=== PATIENT | male | born 1980 | race Caucasian/White ===

== ENCOUNTER 2017-06-23 14:36 | Inpatient (IN) ==
[2017-06-23] MEDS ORDERED: 0.9 % Sodium Chloride 1,000 ML IVC ONE ×2 (14:48→15:58)
[2017-06-23] MEDS ORDERED: Ondansetron 4 MG/2 ML VIAL IVP ONE ×2 (14:48→18:22)
[2017-06-23] MEDS ORDERED: *HR* FentaNYL (PF) 100 MCG/2 ML VIAL IVP ONE (14:48)
--- NOTE | 2017-06-23 14:52 | Emergency Department Note ---
Disposition Clinical Impression: Emphysematous pyelonephritis, Hyperglycemia, Ketonuria, Yeast UTI Hematuria Qualifiers: Hematuria type: unspecified type Qualified Code(s): R31.9 - Hematuria, unspecified Disposition: Admitted As Inpatient Condition: Good Nausea/Vomiting/Diarrhea HPI - General Chief complaint: ED Nausea/Vomiting/Diarrhea Stated complaint: N/V Time Seen by Provider: 06/23/17 14:50 Source: patient, EMS Mode of arrival: EMS Limitations: no limitations Nursing Notes Reviewed: Yes Vital Signs Reviewed: Yes - History of Present Illness HPI Narrative: 36-year-old male history of type 1 diabetes currently managed on an insulin pump , history of ureteral stones causing pyelonephritis who presents to the ER with a chief complaint of nausea vomiting and abdominal pain. Patient reports he started throwing up on Wednesday. He has had roughly 10 episodes of vomiting per day since. He states that his vomit did look dark and he thought there might be blood in it. He is not on any antiplatelet or anticoagulation medications. No history of gastric ulcers or esophageal varices that he is aware of. He reports pain. Much all over his abdomen. He denies diarrhea or blood in his stool or urine. No chest pain or shortness of breath. No fevers at home. He reports back pain and bilateral flank pain. No other complaints. Pt Subjective Complaint: nausea, vomiting, abdominal pain Onset (ago): day(s) Description of emesis: blood-streaked Number of episodes of emesis: 20 Associated Abdominal Pain: Yes If pain, Location of pain: diffuse Severity: moderate Quality: cramping Consistency: constant Improves with: nothing Worsens with: nonthing Context: other Associated symptoms: Reports: nausea/vomiting. Denies: chest pain, fever/chills , dysuria, shortness of breath - Related Data Home Medications Medication Instructions Recorded Confirmed Subcutaneous Insulin Pump [T:Slim] 1 each MC AD 06/23/17 06/23/17 Allergies Allergy/AdvReac Type Severity Reaction Status Date / Time No Known Allergies Allergy Verified 05/17/16 10:29 All systems ED: reviewed and negative except as stated. Constitutional: Denies: fever Cardiovascular: Denies: chest pain Respiratory: Denies: dyspnea Gastrointestinal: Reports: abdominal pain, nausea, vomiting, hematemesis. Denies: diarrhea Genitourinary: Denies: dysuria, hematuria Musculoskeletal: Reports: back pain Past Medical History - Past Medical History Attestation: Yes The following information was validated with the patient. Source: patient Medical history: Reports: arthritis, diabetes, GERD, hepatitis, kidney stones Surgical history: Reports: no surgical history Psychiatric history: Reports: anxiety, depression, other - Social History Smoking Status: Current every day smoker Smokeless Tobacco Status: No Alcohol use: Reports: occasionally Drug use: Reports: marijuana, IV Drug Use Physical Exam - General Limitations: no limitations General appearance: alert, anxious - Head Head exam: atraumatic, normocephalic, normal inspection - Eye Eye exam: Present: normal appearance, EOMI - ENT ENT exam: normal exam - Neck Neck exam: Present: normal inspection, full ROM - Chest Chest inspection: Present: normal inspection, symmetric chest wall rise - Respiratory Respiratory exam: Present: normal lung sounds bilaterally - Cardiovascular Cardiovascular exam: Present: normal rhythm, tachycardia, normal heart sounds - Abdominal Exam Abdominal exam: Present: soft, tenderness (Patient has mild diffuse tenderness to palpation of his abdomen. He has no guarding, rigidity or distention.) - Extremities Exam Extremities exam: Present: normal inspection, full ROM - Expanded Upper Extremity Exam Shoulder exam: Present: normal inspection, full ROM Arm exam: Present: normal inspection, full ROM Elbow exam: Present: normal inspection, full ROM Forearm/Wrist exam: Present: normal inspection, full ROM Hand exam: Present: normal inspection, full ROM Vascular exam: Normal: radial pulse - Expanded Lower Extremity Exam Hip/Pelvis exam: Present: normal inspection, full ROM Upper leg exam: Present: normal inspection, full ROM Knee exam: Present: normal inspection, full ROM Lower leg exam: Present: normal inspection, full ROM Ankle exam: Present: normal inspection, full ROM Foot/toe exam: Present: normal inspection, full ROM Neurovascular/Tendon exam: Absent: motor deficit, sensory deficit - Neurological Exam Neurological exam: Present: alert, other (GCS 15. Nonfocal neurologic exam.) - Psychiatric Psychiatric exam: Present: normal affect, normal mood - Skin Skin exam: Present: warm, dry, intact, normal color Course Course Narrative: Patient seen and examined. He is slightly tachycardic here. Complaining of "pain all over". He did have an episode of emesis while here which appeared nonbloody. We will obtain labs including CBC, CMP, lipase as well as a CT scan of the abdomen and pelvis for evaluation of his abdominal pain, prior renal stones and hematemesis. Patient given IV fluids antiemetics and analgesics. - Reevaluation(s) Reevaluation #1: I discussed the recommendations of infectious disease and urology with the patient as well as imaging and labs. He is in agreement with staying in the hospital. - Consultations Consultation #1: Case discussed with on-call urologist Dr. Lin. I discussed because of his CT findings showing air in the collecting system. Given these findings we will treat for emphysematous pyelonephritis. He recommends infectious disease consult for antibiotic management. He will see the patient in consultation tomorrow. Consultation #2: I spoke with the on-call infectious disease provider. Discussed the patient's history labs and imaging findings. They recommend to start Zosyn and to hold on treating with an antifungal at this time. They will see the patient consultation. Vital Signs Temperature 98.2 F 06/23/17 14:39 Pulse Rate 109 06/23/17 14:39 Respiratory Rate 16 06/23/17 14:39 Blood Pressure 136/102 06/23/17 14:39 O2 Sat by Pulse Oximetry 99 06/23/17 14:39 Temperature 98.2 F 06/23/17 14:39 Pulse Rate 93 06/23/17 16:40 Respiratory Rate 18 06/23/17 16:40 Blood Pressure 133/96 06/23/17 16:40 O2 Sat by Pulse Oximetry 99 06/23/17 16:40 Oxygen Delivery Oxygen Delivery Room Air Nausea/Vomiting/Diarrhea - [facility] Narrative Medical decision making narrative: 36-year-old male presents to the ER due to vomiting for 2 days as well as abdominal pain. History of type 1 diabetes with DKA in the past. Here he is alert and nontoxic in appearance and afebrile. CT scan demonstrates mild pyelonephritis of the left kidney with concern for gas-forming organism with air in the collecting system. Has a slight white count of 13 with a bump in his creatinine to 1.37. There is no anion gap on his metabolic panel. His urinalysis does not demonstrate bacteriuria. He does however have yeast which appears to be chronic for him. He was given 2 L of normal saline here. Urology and infectious disease were consulted in the emergency department for emphysematous pyelonephritis. Zosyn was recommended to start for antibiotic regimen and admitted to the hospitalist service for further management. - Lab Data Lab results reviewed: Yes I reviewed the patient's lab results. Result diagrams: 06/23/17 15:24 06/23/17 15:24 Lab Results 06/23/17 06/23/17 06/23/17 Range/Units 15:24 15:24 15:30 WBC 13.3 H (4.3-11.1) K/mcL RBC 4.54 (4.19-5.50) M/mcL Hgb 12.8 L (12.9-16.9) g/dL Hct 37.4 L (37.5-50.1) % MCV 82.4 L (83.0-100.0) fL MCH 28.2 (28.0-33.3) pg MCHC 34.2 (31.6-35.5) g/dL RDW 12.8 (11.5-14.5) % Plt Count 255 (140-400) K/mcL MPV 11.0 (9.4-12.4) fL Immature Gran % 0.2 (0-4) % Seg Neutrophils % 84.9 % Lymphocytes % 9.0 % Monocytes % 5.7 % Eosinophils % 0.0 % Basophils % 0.2 % Neutrophils # 11.3 H (1.6-8.9) K/mcL Lymphocytes # 1.2 (0.6-4.6) K/mcL Monocytes # 0.8 (0.0-1.3) K/mcL Eosinophils # 0.0 (0.0-0.6) K/mcL Basophils # 0.0 (0.0-0.2) K/mcL Sodium 132 L (136-145) mEq/L Potassium 3.3 L (3.5-4.5) mEq/L Chloride 88 L (98-109) mEq/L Carbon Dioxide 29 (19-29) mEq/L BUN 19 (8-26) mg/dL Creatinine 1.37 H (0.72-1.25) mg/dL Est GFR ( Amer) > 60 (> 60) Est GFR (Non-Af Amer) 59 L (> 60) BUN/Creatinine Ratio 14 (6-26) Glucose 295 H (70-99) mg/dL Calculated Osmolality 287 (280-300) Calcium 9.3 (8.6-10.8) mg/dL Total Bilirubin 0.5 (0.2-1.2) mg/dL AST 18 (5-34) Units/L ALT 16 (0-55) Units/L Alkaline Phosphatase 95 (38-126) Units/L Serum Total Protein 7.2 (6.0-8.3) g/dL Albumin 3.5 (3.5-5.0) g/dL Globulin 3.7 H (2.4-3.5) g/dL Albumin/Globulin Ratio 0.9 L (1.1-2.2) Lipase < 10 (8-78) Units/L Beta-Hydroxybutyric Acd > 2.00 H (0.02-0.27) mmol/L Urine Color Yellow (Yellow) Urine Clarity Slightly Hazy (Clear) Urine pH 5.5 (5.0-8.0) pH Units Ur Specific Tilly > 1.030 H (1.010-1.025) Urine Protein 30 H (Neg-Trace) mg/dL Urine Glucose (UA) >=1000 H (Normal) mg/dL Urine Ketones 40 H (Negative) mg/dL Urine Blood Moderate H (Negative) Urine Nitrite Negative (Negative) Urine Bilirubin Negative (Negative) Urine Urobilinogen Normal (Normal) mg/dL Ur Leukocyte Esterase Negative (Negative) Urine Microscopic RBC 5-15 H (0-3) per hpf Urine Microscopic WBC 15-30 H (0-3) per hpf Ur Squamous Epith Cells Few (None-Few) per lpf Urine Bacteria None Seen (None-Few) per hpf Hyaline Casts None Seen (None-Few) per lpf Urine Yeast Moderate H (None Seen) per hpf Ur Culture Indicated? YES A (NO) - Radiology Data Radiology results reviewed: Yes I reviewed the patient's radiology results. Abdomen/Pelvis CT 06/23/17 14:48 IMPRESSION: Mild perinephric stranding is seen involving the left kidney. There is air in the collecting system along with renal calculi. There is mild hydronephrosis. Findings concerning for acute pyelonephritis. The air is concerning for acute gas-forming organism. D/ / Nicanor Price MD / Nicanor Price MD Interpreting Provider: Nicanor Price MD [facility] - [facility] Situation: Demographics, MOA Background: Presenting Complaint, Relevant PMH, Meds, & Allergies Assessment: Vital Signs, Course and respsone to treatment, Exam Concerns, Patient/Family Expectation, Pertinant Lab Results, Outstanding Labs Recommendation: Barrier(s) to disposition, Recommendation based on pending studies, treatments, or consults [place] Report Given to: Dr. Donald Shane Repor Time: 17:16 Attestation Statement - Attestation Attestation: I examined this patient and my medical decision-making was reviewed with the Resident Physician. I agree with the documented findings, disposition and treatment plan as described except to the extent set forth below. There is evidence of possible gas-forming organism within the collecting ducts. Plan to consult urology and admitted for further evaluation of acute kidney injury and pyelonephritis.
[2017-06-23 15:41] LABS: Bilirubin,Urine Negative (Negative); Blood,Urine Moderate (Negative); Color,Urine Yellow (Yellow); Glucose,Urine (UA) >=1000 mg/dL (Normal); Ketones,Urine 40 mg/dL (Negative); Leukocyte Esterase,Urine Negative (Negative); Nitrite,Urine Negative (Negative); PH,Urine 5.5 pH Units (5.0-8.0); Protein,Urine 30 mg/dL (Neg-Trace); Specific Gravity,Urine > 1.030 (1.010-1.025); Urobilinogen,Urine Normal (Normal)
[2017-06-23 15:44] LABS: Bacteria,Urine None Seen per hpf (None-Few); Hyaline Casts,Urine None Seen per lpf (None-Few); WBC,Urine 15-30 per hpf (0-3)
[2017-06-23 15:45] LABS: Clarity,Urine Slightly Hazy (Clear)
[2017-06-23 15:47] LABS: Basophils % 0.2 %; Hematocrit 37.4 % (37.5-50.1); Hemoglobin 12.8 g/dL (12.9-16.9); Immature Granulocytes % 0.2 % (0-4); Lymphocytes # 1.2 K/mcL (0.6-4.6); Mean Corpuscular HGB Conc 34.2 g/dL (31.6-35.5); Mean Corpuscular Hemoglobin 28.2 pg (28.0-33.3); Mean Corpuscular Volume 82.4 fL (83.0-100.0); Monocytes # 0.8 K/mcL (0.0-1.3); Monocytes % 5.7 %; Neutrophils # 11.3 K/mcL (1.6-8.9); Platelet Count 255 K/mcL (140-400); Red Blood Count 4.54 M/mcL (4.19-5.50); Red Cell Distribution Width 12.8 % (11.5-14.5); Segmented Neutrophils % 84.9 %
[2017-06-23 15:53] LABS: Yeast,Urine Moderate per hpf (None Seen)
[2017-06-23 15:55] LABS: Squamous Epithelial Cell,Urine Few per lpf (None-Few)
[2017-06-23 16:06] LABS: Alanine Aminotransferase 16 Units/L (0-55); Albumin 3.5 g/dL (3.5-5.0); Albumin/Globulin Ratio 0.9 (1.1-2.2); Alkaline Phosphatase 95 Units/L (38-126); Aspartate Amino Transferase 18 Units/L (5-34); BUN/Creatinine Ratio 14 (6-26); Bilirubin,Total 0.5 mg/dL (0.2-1.2); Blood Urea Nitrogen 19 mg/dL (8-26); Calcium 9.3 mg/dL (8.6-10.8); Carbon Dioxide 29 mEq/L (19-29); Chloride 88 mEq/L (98-109); Globulin 3.7 g/dL (2.4-3.5); Glucose 295 mg/dL (70-99); Osmolality,Calculated 287 (280-300); Potassium 3.3 mEq/L (3.5-4.5); Sodium 132 mEq/L (136-145); Total Protein 7.2 g/dL (6.0-8.3); eGFR For African Americans > 60 (> 60); eGFR For Non-African Americans 59 (> 60)
[2017-06-23 16:07] LABS: Lipase < 10 Units/L (8-78)
[2017-06-23 16:25] LABS: Beta-Hydroxybutyric Acid > 2.00 mmol/L (0.02-0.27)
[2017-06-23] MEDS ORDERED: Piperacillin/Tazobactam 3.375 GM in D5% in Water (Mini-Bag+) 100 ML IVPB ONE (16:51)
[2017-06-23] MEDS ORDERED: *HR* HYDROmorphone (PF) 1 MG/ML SYRINGE IVP ONE (18:22)
[2017-06-23] MEDS ORDERED: Naloxone 0.4 MG/ML INJ IVP PRN (19:27)
[2017-06-23] MEDS ORDERED: Acetaminophen 325 MG TABLET PO PRN (19:27)
[2017-06-23] MEDS ORDERED: *HR* Dextrose 50 % in Water (Syg) 50 ML SYRINGE IVP PRN (19:52)
[2017-06-23] MEDS ORDERED: D5% in Water 1,000 ML IVC PRN (19:52)
[2017-06-23] MEDS ORDERED: Dextrose Gel 15 GM PO PRN ×2 (19:52)
--- NOTE | 2017-06-23 20:06 | Internal Med History&Physical ---
<Constantino Murray J - Last Filed: 06/23/17 20:04> Date of Encounter: 06/23/17 Time of Encounter: 20:04 Assessment and Plan (1) Pyelonephritis Current visit: Yes Status: Acute Came to the ED with chief complaint of Nausea vomiting and abdominal pain with bilateral flank pain. CAT scan of abdomen and pelvis revealed air in collecting system with concern for emphysematous pyelonephritis. Urology consulted and will see in the morning Blood cultures drawn in the emergency department Infectious disease consult and recommend Zosyn for treatment at this time Continue Zosyn as recommended de-escalate antibody therapy at the discretion of infectious disease. CBC, CMP with magnesium in the morning Monitor urine output (2) Intractable nausea and vomiting Current visit: Yes Status: Acute Three-day history of intractable nausea and vomiting. Having approximately 10 episodes/day of emesis and reports some coffee-ground -like consistency occasionally, and reports some dark maroon blood as well. Does not have a history of peptic ulcer disease or cirrhosis. CBC in the morning, CMP witn Mg in the morning, Rehydrate with IV fluids 0.9% normal saline at 125 mL per hour Zofran every 6 hours IV push for nausea vomiting Start PPI Qualifiers: Vomiting type: cyclical vomiting Qualified Code(s): G43.A1 - Cyclical vomiting, intractable (3) Diabetes Current visit: Yes Status: Chronic Patient's chronic type I diabetic who is to be on insulin pump. Has had a three -day history of nausea vomiting and diarrhea 10 episodes per day of vomiting. Blood glucose per metabolic panel 295. DC insulin pump Start sliding scale insulin coverage at medium coverage with before meals and at bedtime Accu-Cheks Hemoglobin A1c in the morning Qualifiers: Diabetes mellitus type: type 1 Diabetes mellitus complication status: with hyperglycemia Qualified Code(s): E10.65 - Type 1 diabetes mellitus with hyperglycemia (4) CORIE (acute kidney injury) Current visit: Yes Status: Acute Creatinine of 1.37, likely result of dehydration due to 3 days of vomiting with approximately 10 episodes per day. IV fluids 0.9% normal saline at 125 mL per hour Recheck metabolic panel in the morning Orders to monitor I&O (5) Dehydration, mild Current visit: Yes Status: Acute Patient reports nausea and vomiting and diarrhea 3 days with approximately 10 episodes of vomiting per day. Metabolic panel morning Rehydrate with normal saline at 125 mL per hour (6) Hypokalemia Current visit: Yes Status: Acute Hypokalemia per metabolic panel with potassium of 3.3. Likely due to nausea and vomiting. Replace potassium with 40 MEQ K rider viaPeripheral IV over 4 hours CMP with mg in the morning (7) DVT prophylaxis Current visit: Yes Status: Acute Due to immobility and hospital stay patient is a risk for DVT. Start Lovenox 40 mg subcutaneous daily Internal Medicine - H&P: HPI Chief complaint: N/V/D and abdominal pain Admitted From: Home Plans for Post Hospital Care: Home History of present illness: Mr. Ortega is a 36 year old male with a past medical history of type 1 diabetes and hepatitis. Presents to [facility] today with nausea vomiting diarrhea flank pain and abdominal pain which started Wednesday. Reports approximately 10 episodes of vomiting per day with a minimal amount of coffee- ground emesis a few times a day. All information obtained from chart review and patient report. Patient reports that her abdominal pain nausea vomiting and diarrhea started Wednesday and is continuous as of this visit. He describes abdominal pain has sharp in the left lower right lower quadrant with radiation around to mid back. He denies irritating factors are alleviation of pain. Denies fever, night sweats, dysuria, hematuria, chills, hematochezia. Metabolic panel results a creatinine of 1.37 with potential AK I, potassium 3.3 , sodium 132. CBC, elevated white count of 13.3. CT of the abdomen revealed air in the collecting system with concern for emphysematous pyelonephritis. He is being admitted to [facility] for further workup and evaluation Past Med Surg Social Fam HX - Past Medical History Medical history: arthritis, diabetes, hepatitis, kidney stones Psychiatric history: anxiety, depression, other - Past Surgical History Surgical History: no surgical history - Social History Smoking Status: Current every day smoker Packs per day: 0.5 Smokeless Tobacco Status: No Alcohol use: occasionally Drug use: marijuana, IV Drug Use - Family History Grandmother Adopted: No Family Member Ethnicity: Non- Living Status: Hx Family Respiratory Disorders: Yes (copd) Hx Family Endocrine Disorder: Yes (diabetes) Internal Medicine - H&P: Meds Subcutaneous Insulin Pump [T:Slim] 1 each AD 06/23/17 [History] 3 Allergy/AdvReac Type Severity Reaction Status Date / Time No Known Allergies Allergy Verified 05/17/16 10:29 All Systems PM: A 10-system review of systems was performed and is negative for pertinent findings except as documented above in the HPI. - Constitutional Constitutional: anorexia, fatigue, lethargy, malaise, no chills, no excessive sweating, no fever(s), no night sweats - EENT Eyes: no change in vision, no discharge, no pain, no photophobia Ears: no ear discharge, no ear pain, no tinnitus Nose, mouth and throat: no dysphagia, no nasal discharge, no neck pain, no sore throat - Cardiovascular Cardiovascular ROS IM: no chest pain, no diaphoresis, no dyspnea, no lightheadedness, no palpitations, no syncope - Respiratory Respiratory: no cough, no dyspnea, no wheezing, no excessive phlegm production - Gastrointestinal Gastrointestinal: diarrhea (Reports only a minimal amount last episode this morning), nausea, vomiting (Reports approximately 10 episodes of vomiting per day for the last 3 days. ), no abdominal pain, no hematemesis, no hematochezia , no melena - Genitourinary Genitourinary ROS male: flank pain, no difficulty urinating, no dysuria, no hematuria, no urinary frequency, no urinary hesitancy, no urinary incontinence - Musculoskeletal Musculoskeletal ROS IM: no numbness, no tingling - Integumentary Integumentary IM: no rash, no unusual bruising - Neurological Neurological ROS: no confusion, no convulsions, no focal weakness, no numbness, no tingling, no tremor(s) - Hematologic/Lymphatic Hematologic/Lymphatic: no easy bruising - Constitutional Vitals: Temp Pulse Resp BP Pulse Ox 98.5 F 83 16 156/96 98 06/23/17 19:24 06/23/17 19:24 06/23/17 19:24 06/23/17 19:24 06/23/17 19:24 General appearance: Present: cooperative, mild distress, A&O X 3, answers questions appropriately - Head Head exam: Present: atraumatic, normocephalic - Eye Eye exam: Present: PERRL, conjuntiva pink, sclera anicteric Pupils: Present: PERRL - Neck Neck exam general surgery: Present: supple, trachea midline. Absent: lymphadenopathy - Respiratory Respiratory exam: Present: CTAB. Absent: accessory muscle use, rales, rhonchi, wheezes - Cardiovascular Cardiovascular exam: Present: RRR, +S1, +S2. Absent: diastolic murmur, gallop, rubs, systolic murmur - GI/Abdominal GI/Abdominal exam: Present: normal bowel sounds, soft, tenderness (Tenderness noted to right and left lower quadrant, no rebound noted). Absent: distended, firm, guarding, hepatomegaly - Extremities Exam Extremities exam: Present: warm, radial pulses palpable and symmetrical. Absent : calf tenderness, cyanotic, pedal edema - Back Exam Back exam: Present: CVA tenderness (L), CVA tenderness (R) (CVA tenderness noted bilaterally) - Neurological Exam Neurological exam: Present: CN II-XII intact, oriented X3, no focal deficits. Absent: pronater drift, facial droop, speech deficit - Skin Skin exam: Present: dry, intact Internal Med - H&P Results - Labs CBC & Chem 7: 06/23/17 15:24 06/23/17 15:24 - Diagnostic Studies CT scan - abdomen Additional comments: CT of the abdomen revealed air in the collecting system with concern for emphysematous pyelonephritis. <Humberto Polk Andrea - Last Filed: 06/23/17 23:31> Date of Encounter: 06/23/17 Internal Medicine - H&P: HPI History of present illness: Mr. Ortega is a 36 year old male All Systems PM: A 10-system review of systems was performed and is negative for pertinent findings except as documented above in the HPI. - Constitutional Vitals: Temp Pulse Resp BP Pulse Ox 98.1 F 83 16 115/74 98 06/23/17 23:24 06/23/17 23:24 06/23/17 23:24 06/23/17 23:24 06/23/17 23:24 Internal Med - H&P Results - Labs CBC & Chem 7: 06/23/17 15:24 06/23/17 15:24 - Attending Attestation I have personally performed a face to face evaluation on this patient. I have reviewed and agree with the care plan. History and Exam by me shows: 36 yo presenting with b/l front and back pain. Noted chills. Also emesis, reported some dark maroon blood towards the end. CT A/P found L.pyelonephritis ROS 14 point review of systems reviewed as best as possible given presentation. Pertinent positive or negative as per HPI or otherwise reviewed as negative General - AAO x 3 Psych - Appropriate affect/speech. No agitation Eyes - BRO. Eye lids intact. No scleral icterus Heart - Sinus. RRR. S1 and S2 present. No added HS/murmurs appreciated. No elevated JVD appreciated. No calf swellings/erythema Lung - Adequate air entry b/l, No crackes/wheezes appreciated GI - Soft, non-tender. No hepatosplenomegaly/ascites. BS+ - bilateral back and front flank pain A/P Complicated UTI Pyelonephritis - IV antibiotics, send Cx, IVF, IV morphine pain med DMII on insulin pump - monitor sugar. Now off pump. If high, may have to place back on pump and adjust accordingly Dark emesis - denies cirrhosis or PUD. Monitor inpatient. PPI. Check H/H D/w MARYBEL plan of care
[2017-06-23 20:47] LABS: Hemoglobin A1C 12.7 %
[2017-06-23] MEDS: 0.9 % Sodium Chloride 1,000 ML IVC SCH (21:49)
[2017-06-23] MEDS: *HR* Morphine 2 MG/ML SYRINGE IVP PRN (22:16)
[2017-06-23] MEDS: Insulin LISPRO 300 UNITS/3 ML VIAL SQ SCH (22:17)
[2017-06-23] MEDS: Pantoprazole 40 MG VIAL IVP SCH (22:17)
[2017-06-24] MEDS ORDERED: Ondansetron 4 MG/2 ML VIAL IVP SCH
[2017-06-24] MEDS: Ondansetron 4 MG/2 ML VIAL IVP PRN ×4 (01:35→23:33)
[2017-06-24] MEDS: *HR* Morphine 2 MG/ML SYRINGE IVP PRN ×5 (03:25→23:34)
[2017-06-24] MEDS: Piperacillin/Tazobactam 3.375 GM in D5% in Water (Mini-Bag+) 100 ML IVPB SCH ×3 (03:25→17:50)
[2017-06-24 04:53] LABS: Basophils % 0.1 %; Eosinophils % 0.3 %; Hematocrit 36.4 % (37.5-50.1); Hemoglobin 12.4 g/dL (12.9-16.9); Immature Granulocytes % 0.7 % (0-4); Immature Platelets 6.2 % (1.1-6.1); Lymphocytes # 1.5 K/mcL (0.6-4.6); Lymphocytes % 9.7 %; Mean Corpuscular HGB Conc 34.1 g/dL (31.6-35.5); Mean Corpuscular Hemoglobin 28.6 pg (28.0-33.3); Mean Corpuscular Volume 84.1 fL (83.0-100.0); Mean Platelet Volume 11.4 fL (9.4-12.4); Monocytes # 1.4 K/mcL (0.0-1.3); Platelet Count 214 K/mcL (140-400); Red Blood Count 4.33 M/mcL (4.19-5.50); Segmented Neutrophils % 80.2 %
[2017-06-24 05:00] LABS: Eosinophils # 0.1 K/mcL (0.0-0.6)
[2017-06-24 05:01] LABS: Alanine Aminotransferase 14 Units/L (0-55); Albumin 3.4 g/dL (3.5-5.0); Alkaline Phosphatase 92 Units/L (38-126); Aspartate Amino Transferase 20 Units/L (5-34); BUN/Creatinine Ratio 14 (6-26); Bilirubin,Total 0.4 mg/dL (0.2-1.2); Blood Urea Nitrogen 18 mg/dL (8-26); Calcium 8.5 mg/dL (8.6-10.8); Carbon Dioxide 23 mEq/L (19-29); Chloride 95 mEq/L (98-109); Globulin 3.5 g/dL (2.4-3.5); Glucose 181 mg/dL (70-99); Magnesium 1.5 mg/dL (1.6-2.6); Osmolality,Calculated 286 (280-300); Potassium 3.5 mEq/L (3.5-4.5); Sodium 135 mEq/L (136-145); Total Protein 6.9 g/dL (6.0-8.3); eGFR For African Americans > 60 (> 60); eGFR For Non-African Americans > 60 (> 60)
[2017-06-24] MEDS: 0.9 % Sodium Chloride 1,000 ML IVC SCH ×3 (05:39→22:10)
[2017-06-24] MEDS: *HR* Enoxaparin 40 MG/0.4 ML SYRINGE SQ SCH (05:40)
[2017-06-24 05:51] LABS: Platelet Estimate Normal (Normal)
--- NOTE | 2017-06-24 07:48 | Urology - Consult Note ---
Date of Encounter: 06/24/17 Time of Encounter: 07:46 - Assessment and Plan (1) Emphysematous pyelonephritis Current Visit: Yes Status: Acute Assessment and plan: 36 year old man with a history of left emphysematous pyelonephritis. He has stones within the left kidney, but no evidence of obstruction. He has been admitted and is on Zosyn. He is having some nausea today, but no fevers. I discussed placing a left ureteral stent today vs further observation with continued IV antibiotic. Again, he hasn't had any fevers, but his WBC has risen slightly. After our discussion he wishes to observe for some more time prior to stent placement. If his clinical condition worsens or if his WBC increases again tomorrow, I will proceed with the cystoscopy and left ureteral stent placement. He understands the risk of worsening of his infection without treatment. I will closely follow along. I will keep him NPO past midnight. Urology CN:HPI Consult date: 06/24/17 Reason for consult Urology: Other (nausea, emphysematous pyelonephritis) Requesting physician: Jack Klein History of present illness: 36-year-old man well-known to the urology service presents with nausea and vomiting and back pain. He has a known stone history. He previously underwent a right ureteroscopic stone extraction on July 01, 2016. He has known left renal stones. The nausea and vomiting has been progressing over the last 2 days. It became severe enough yesterday that he came to the emergency room. His blood glucose was elevated. He had a CT scan done which showed gas within the left renal collecting system as well as left renal stones. There are no stones seen on the right side. He has been admitted. In addition the CT showed no evidence of obstructing left ureteral stone. There is evidence of mild left hydronephrosis. Past Med Surg Social Fam HX - Past Medical History Medical history: arthritis, diabetes, hepatitis, kidney stones Psychiatric history: anxiety, depression, other - Past Surgical History Surgical History: no surgical history - Social History Smoking Status: Current every day smoker Packs per day: 0.5 Smokeless Tobacco Status: No Alcohol use: occasionally Drug use: marijuana, IV Drug Use - Family History Grandmother Adopted: No Family Member Ethnicity: Non- Living Status: Hx Family Respiratory Disorders: Yes (copd) Hx Family Endocrine Disorder: Yes (diabetes) Medications and Allergies Subcutaneous Insulin Pump [T:Slim] 1 each MC AD 06/23/17 [History] 3 Allergy/AdvReac Type Severity Reaction Status Date / Time No Known Allergies Allergy Verified 05/17/16 10:29 Review of Systems - Constitutional no chills, no fever(s) - EENT Nose, mouth and throat: no dizziness - Cardiovascular no chest pain - Respiratory no dyspnea - Gastrointestinal nausea, vomiting - Genitourinary flank pain, no hematuria - Musculoskeletal no back pain - Integumentary no erythema, no rash - Neurological no weakness - Psychiatric no suicidal ideation - Hematologic/Lymphatic no easy bleeding - Allergic/Immunologic no wheezing Exam Initial Vital Signs Temp Pulse Resp BP Pulse Ox 98.2 F 109 16 136/102 99 06/23/17 14:39 06/23/17 14:39 06/23/17 14:39 06/23/17 14:39 06/23/17 14:39 - General physical appearance Present: well developed, well nourished, no distress - Eyes Absent: icteric - ENT Present: normal mucosa - Neck Present: trachea midline - Respiratory Present: normal respiratory effort - Cardiovascular Cardiovascular exam IM: RRR - Abdomen Abdomen: Present: soft Urology Results - Labs 06/24/17 04:13 06/24/17 04:13 Abnormal lab results WBC 15.0 K/mcL (4.3-11.1) H 06/24/17 04:13 Hgb 12.4 g/dL (12.9-16.9) L 06/24/17 04:13 Hct 36.4 % (37.5-50.1) L 06/24/17 04:13 Neutrophils # 12.0 K/mcL (1.6-8.9) H 06/24/17 04:13 Monocytes # 1.4 K/mcL (0.0-1.3) H 06/24/17 04:13 Immature Plt Fraction 6.2 % (1.1-6.1) H 06/24/17 04:13 Sodium 135 mEq/L (136-145) L 06/24/17 04:13 Chloride 95 mEq/L (98-109) L 06/24/17 04:13 Creatinine 1.32 mg/dL (0.72-1.25) H 06/24/17 04:13 Glucose 181 mg/dL (70-99) H 06/24/17 04:13 POC Glucose 206 (58-89) H 06/24/17 07:14 Hemoglobin A1c 12.7 % (-5.6) H 06/23/17 15:24 Calcium 8.5 mg/dL (8.6-10.8) L 06/24/17 04:13 Magnesium 1.5 mg/dL (1.6-2.6) L 06/24/17 04:13 Albumin 3.4 g/dL (3.5-5.0) L 06/24/17 04:13 Albumin/Globulin Ratio 1.0 (1.1-2.2) L 06/24/17 04:13 Beta-Hydroxybutyric Acd > 2.00 mmol/L (0.02-0.27) H 06/23/17 15:24 Ur Specific [place] > 1.030 (1.010-1.025) H 06/23/17 15:30 Urine Protein 30 mg/dL (Neg-Trace) H 06/23/17 15:30 Urine Glucose (UA) >=1000 mg/dL (Normal) H 06/23/17 15:30 Urine Ketones 40 mg/dL (Negative) H 06/23/17 15:30 Urine Blood Moderate (Negative) H 06/23/17 15:30 Urine Microscopic RBC 5-15 per hpf (0-3) H 06/23/17 15:30 Urine Microscopic WBC 15-30 per hpf (0-3) H 06/23/17 15:30 Urine Yeast Moderate per hpf (None Seen) H 06/23/17 15:30 Ur Culture Indicated? YES (NO) A 06/23/17 15:30 Diabetes panel 06/24/17 Range/Units 04:13 Sodium 135 L (136-145) mEq/L Potassium 3.5 (3.5-4.5) mEq/L Chloride 95 L (98-109) mEq/L Carbon Dioxide 23 (19-29) mEq/L BUN 18 (8-26) mg/dL Creatinine 1.32 H (0.72-1.25) mg/dL Glucose 181 H (70-99) mg/dL Calcium 8.5 L (8.6-10.8) mg/dL AST 20 (5-34) Units/L ALT 14 (0-55) Units/L Alkaline Phosphatase 92 (38-126) Units/L Albumin 3.4 L (3.5-5.0) g/dL Calcium panel 06/24/17 Range/Units 04:13 Calcium 8.5 L (8.6-10.8) mg/dL Albumin 3.4 L (3.5-5.0) g/dL Pituitary panel 06/24/17 Range/Units 04:13 Sodium 135 L (136-145) mEq/L Potassium 3.5 (3.5-4.5) mEq/L Chloride 95 L (98-109) mEq/L Carbon Dioxide 23 (19-29) mEq/L BUN 18 (8-26) mg/dL Creatinine 1.32 H (0.72-1.25) mg/dL Glucose 181 H (70-99) mg/dL Calcium 8.5 L (8.6-10.8) mg/dL Adrenal panel 06/24/17 Range/Units 04:13 Sodium 135 L (136-145) mEq/L Potassium 3.5 (3.5-4.5) mEq/L Chloride 95 L (98-109) mEq/L Carbon Dioxide 23 (19-29) mEq/L BUN 18 (8-26) mg/dL Creatinine 1.32 H (0.72-1.25) mg/dL Glucose 181 H (70-99) mg/dL Calcium 8.5 L (8.6-10.8) mg/dL Total Bilirubin 0.4 (0.2-1.2) mg/dL AST 20 (5-34) Units/L ALT 14 (0-55) Units/L Alkaline Phosphatase 92 (38-126) Units/L Albumin 3.4 L (3.5-5.0) g/dL All other labs normal. - Imaging CT scan - abdomen: report reviewed, image reviewed CT scan - pelvis: report reviewed, image reviewed Consult Discharge Plan - Plan Referrals: Michelle Amin, GINA [Primary Care Provider] -
[2017-06-24] MEDS: Pantoprazole 40 MG VIAL IVP SCH (08:25)
[2017-06-24] MEDS: Insulin LISPRO 300 UNITS/3 ML VIAL SQ SCH ×4 (08:25→20:06)
--- NOTE | 2017-06-24 09:23 | Infectious Disease Consult ---
Date of Encounter: 06/24/17 Time of Encounter: 09:13 Assessment and Plan (1) Sepsis Status: Resolved Assessment and plan: The patient had two SIRS criteria plus CORIE on admission. No lactic acid was checked. Add to AM labs now. Likely secondary to emphysematous pyelonephritis. Improved. Tachycardia has resolved. WBC a little worse this morning. Blood cultures drawn 06/23/17 are pending x 2 sets. Qualifiers: Sepsis type: sepsis due to unspecified organism Qualified Code(s): A41.9 - Sepsis, unspecified organism (2) Emphysematous pyelonephritis Status: Acute Assessment and plan: Causative organism unclear. Urinalysis not indicative of bacterial infection, but did show some yeast. Urine culture is pending. CT of the abdomen and pelvis done without contrast shows left perinephric stranding with air in the collecting system, concerning for gas-forming organism. Additionally, there are several left renal calculi with mild hydronephrosis. Urology consulted and following. Will discuss case with Dr. Lin. Continue Zosyn 3.375 grams IV Q8H. Duration of treatment depends on the clinical picture. Monitor renal function and dose-adjust antibiotics. (3) Candiduria Status: Acute Assessment and plan: Urinalysis shows yeast organisms. Previous urine cultures positive for Jade albicans. The patient may be undergoing urological procedure in the next 24-48 hours. Will start fluconazole 200mg IV daily in anticipation of possible stent placement. Duration of treatment depends on the clinical picture. Monitor LFTs periodically. (4) CORIE (acute kidney injury) Status: Acute Assessment and plan: CORIE in the setting of CKD. Serum creatinine 1.37 on admission. Likely secondary to hydronephrosis. Continue to trend. Dose-adjust antibiotics as needed. Avoid nephrotoxins as able. (5) Nausea and vomiting Status: Acute Assessment and plan: Likely secondary to current infectious process. Continue supportive care. Further management per the primary team. Qualifiers: Vomiting type: unspecified Vomiting Intractability: intractable Qualified Code(s): R11.2 - Nausea with vomiting, unspecified (6) Diabetes Status: Chronic Assessment and plan: Uncontrolled. HgbA1C 12.7 Uncontrolled DM likely contributing to the onset of emphysematous pyelonephritis. Recommend aggressive glucose monitoring and control to prevent re-infection. Management per the primary team. Qualifiers: Diabetes mellitus type: type 1 Diabetes mellitus complication status: with hyperglycemia Qualified Code(s): E10.65 - Type 1 diabetes mellitus with hyperglycemia (7) Hepatitis C Status: Chronic Assessment and plan: Secondary to previous IVDU. Check HIV. Qualifiers: Viral hepatitis chronicity: chronic Hepatic coma status: without hepatic coma Qualified Code(s): B18.2 - Chronic viral hepatitis C Infectious Disease HPI - Data of Consult Patient: new to practice Consult date: 06/24/17 Requesting Physician: Aleida Briggs MD Primary Care Provider: Michelle Amin CNP - Consult Narrative Reason for consult: Emphysematous Pyelonephritis History of present illness: Mr. Ortega is a 36 year old male with a past medical history of type 1 diabetes and hepatitis C. She was admitted to the hospital June 23 for emphysematous pyelonephritis. We are consulted June 24 for further evaluation and treatment recommendations regarding emphysematous pyelonephritis. Briefly, the patient's a 36-year-old male with past medical history as stated above. The patient states 2 days ago he began to experience nausea and vomiting with low back pain and suprapubic abdominal pain. He presented to the emergency department yesterday. He was noted to have tachycardia and leukocytosis and acute kidney injury. CT of the abdomen and pelvis without contrast showed mild perinephric stranding evolving the left kidney with air in the collecting system along with renal calculi. Additionally, there were as mild hydronephrosis and the air is concerning for acute gas-forming organism. Urinalysis was obtained that was positive for white blood cells, but no bacteria were seen. Culture is pending. Blood cultures were obtained 2 sets and are pending as well. The patient was started empirically on IV Zosyn. He was admitted to the hospital for further evaluation and treatment. Since admission, the patient has remained afebrile. His tachycardia has resolved. His white blood cell count is mildly worse today. Urology has been consulted and is considering stent placement, but is holding off for now. The patient remains on IV Zosyn. We've been asked to evaluate and make further recommendations. During my exam today, the patient states that he feels a little better. He reports chills at home, but denies any fevers or rigors. He reports chronic neck pain, but denies any headaches. He denies any congestion, earache, or sore throat. He reports nausea and vomiting and inability to keep food down. He reports suprapubic abdominal pain. He states he had one episode of diarrhea yesterday, but otherwise denies. He reports bilateral low back pain, worse on the right than the left. He denies any dysuria, hematuria, or urinary frequency. He denies any foul odor to his urine. He states that he only wears an insulin pump at home and his blood sugars have been relatively well controlled. He denies any chest pain or shortness of breath or cough. Denies any oral thrush or new skin lesions. CC: Aleida Briggs MD Past Med Surg Social Fam HX - Past Medical History Attestation: Yes The following information was validated with the patient. Source: patient, old records reviewed, nursing notes reviewed Medical history: arthritis, diabetes, hepatitis (Hep C - previous IVDU 3 years ago), kidney stones Psychiatric history: anxiety, depression, other - Past Surgical History Surgical History: no surgical history, other (Kidney stone removal) - Social History Smoking Status: Current every day smoker Packs per day: 0.5 Smokeless Tobacco Status: No Alcohol use: occasionally Drug use: marijuana, IV Drug Use (3 years ago) Occupational status: unemployed Current living situation: Home - Independent Activity Level: Independent ambulation Recent Out of Country Travel Within the Last 8 Weeks: No Exposure or Possible Exposure to Illness During Travel: No - Family History Grandmother Adopted: No Family Member Ethnicity: Non- Living Status: Hx Family Respiratory Disorders: Yes (copd) Hx Family Endocrine Disorder: Yes (diabetes) Infectious Disease-CN:Meds Subcutaneous Insulin Pump [T:Slim] 1 each AD 06/23/17 [History] 3 Allergy/AdvReac Type Severity Reaction Status Date / Time No Known Allergies Allergy Verified 05/17/16 10:29 All systems: reviewed and no additional remarkable complaints except as stated Exam - Constitutional Vitals: Temp Pulse Resp BP Pulse Ox 98.2 F 86 16 130/79 98 06/24/17 07:16 06/24/17 07:16 06/24/17 07:16 06/24/17 07:16 06/24/17 07:16 General appearance: average body habitus, cooperative, no acute distress - Head Head exam: Present: atraumatic, normal inspection, normocephalic - Eye Eye exam: Present: EOMI, normal appearance, PERRL Pupils: Present: normal accommodation - ENT ENT exam: Present: mucous membranes moist - Neck Neck exam: Present: normal inspection - Respiratory Respiratory exam: Present: CTAB. Absent: rales, respiratory distress, rhonchi, wheezes - Cardiovascular Cardiovascular exam: Present: RRR, +S1, +S2 - GI/Abdominal GI/Abdominal exam: Present: normal bowel sounds, soft, tenderness (generalized) . Absent: distended - Extremities Exam Extremities exam: Present: normal inspection. Absent: joint swelling, pedal edema, tenderness - Back Exam Back exam: Present: CVA tenderness (L), CVA tenderness (R), normal inspection. Absent: paraspinal tenderness, vertebral tenderness Additional comments: No crepitus noted. - Neurological Exam Neurological exam: Present: alert, oriented X3, no focal deficits - Psychiatric Psychiatric exam: Present: normal affect, normal mood - Skin Skin exam: Present: dry, intact, normal color, warm Infectious Disease CN: Results - Labs CBC & Chem 7: 06/24/17 04:13 06/24/17 04:13 Consult Discharge Plan - Plan Referrals: Michelle Amin, [employer] [Primary Care Provider] -
[2017-06-24] MEDS ORDERED: Magnesium Sulfate 2 GM in D5% in Water 100 ML IVPB ONE (09:59)
[2017-06-24] MEDS: Fluconazole 200 MG/100 ML 200 MG/100 ML BAG IVPB SCH (12:04)
--- NOTE | 2017-06-24 13:26 | Internal Med Progress Note ---
Date of Encounter: 06/24/17 Time of Encounter: 09:45 - Assessment and plan (1) Sepsis Current Visit: No Status: Resolved Assessment and plan: Pt does meet sepsis criteria with elevated WBC, source of Inf as UTI and CORIE Cont empirical abx Zosyn cont IV hydration cont monitor closely will f/u on blood and urine cx Qualifiers: Sepsis type: sepsis due to unspecified organism Qualified Code(s): A41.9 - Sepsis, unspecified organism (2) Pyelonephritis, acute Current Visit: No Status: Acute Assessment and plan: see above (3) Acute renal failure Current Visit: No Status: Acute Assessment and plan: due to sepsis and Pyelonephritis Posisble obstructive uropathy too cont close monitoring strict I & O Trend on Cr Abx renally dosed avoid nephrotoxic meds Qualifiers: Acute renal failure type: unspecified Qualified Code(s): N17.9 - Acute kidney failure, unspecified (4) Hydronephrosis Current Visit: No Status: Acute Assessment and plan: with Left renal calculi Urology on board If his WBC get worse or if his Abd pain get worse, planning on doing Cystoscope and stent in AM Qualifiers: Hydronephrosis type: unspecified Qualified Code(s): N13.30 - Unspecified hydronephrosis (5) Nephrolithiasis Current Visit: No Status: Acute (6) Type 1 diabetes mellitus Current Visit: No Status: Acute Assessment and plan: placed him on ISS here on Diabetic diet take him off his home insulin pump Qualifiers: Diabetes mellitus complication status: without complication Qualified Code( s): E10.9 - Type 1 diabetes mellitus without complications - Subjective Interval history: Mr. Ortega is a 36 year old male with a past medical history of type 1 diabetes and hepatitis. Presents to [facility] today with nausea vomiting diarrhea flank pain and abdominal pain which started Wednesday. Reports approximately 10 episodes of vomiting per day with a minimal amount of coffee- ground emesis a few times a day. All information obtained from chart review and patient report. Patient reports that her abdominal pain nausea vomiting and diarrhea started Wednesday and is continuous as of this visit. He describes abdominal pain has sharp in the left lower right lower quadrant with radiation around to mid back. He denies irritating factors are alleviation of pain. Denies fever, night sweats, dysuria, hematuria, chills, hematochezia. Metabolic panel results a creatinine of 1.37 with potential AK I, potassium 3.3 , sodium 132. CBC, elevated white count of 13.3. CT of the abdomen revealed air in the collecting system with concern for emphysematous pyelonephritis Pt was admitted here for acute emphysematous pyelonephritis. He still c/o abdominal pain, generalized weakness. Denied any CP / SOB - Constitutional Vitals: Temp Pulse Resp BP Pulse Ox 98.3 F 88 14 147/86 98 06/24/17 11:00 06/24/17 11:00 06/24/17 11:00 06/24/17 11:00 06/24/17 11:00 General appearance: Present: cooperative, A&O X 3, answers questions appropriately - Head Head exam: Present: atraumatic, normal inspection - Respiratory Respiratory exam: Present: decreased breath sounds. Absent: rales, respiratory distress, rhonchi, wheezes - Cardiovascular Cardiovascular exam: Present: RRR, +S1, +S2. Absent: systolic murmur - GI/Abdominal GI/Abdominal exam: Present: soft. Absent: rebound, rigid, tenderness - Extremities Exam Extremities exam: Absent: calf tenderness, pedal edema, tenderness - Back Exam Back exam: Present: CVA tenderness (L), CVA tenderness (R) - Neurological Exam Neurological exam: Present: alert, oriented X3 - Psychiatric Psychiatric exam: Present: normal affect, normal mood Internal Medicine: Result - Labs CBC & Chem 7: 06/24/17 04:13 06/24/17 04:13 Labs: Short CBC 06/24/17 Range/Units 04:13 WBC 15.0 H (4.3-11.1) K/mcL Hgb 12.4 L (12.9-16.9) g/dL Hct 36.4 L (37.5-50.1) % Plt Count 214 (140-400) K/mcL Neutrophils # 12.0 H (1.6-8.9) K/mcL BMP 06/24/17 04:13 Sodium 135 L Potassium 3.5 Chloride 95 L Carbon Dioxide 23 BUN 18 Creatinine 1.32 H Glucose 181 H Calcium 8.5 L Liver Function 06/24/17 Range/Units 04:13 Total Bilirubin 0.4 (0.2-1.2) mg/dL AST 20 (5-34) Units/L ALT 14 (0-55) Units/L Alkaline Phosphatase 92 (38-126) Units/L Albumin 3.4 L (3.5-5.0) g/dL Consult Discharge Plan - Plan Referrals: Michelle Amin, GINA [Primary Care Provider] -
[2017-06-24] MEDS: *HR* Promethazine 25 MG/ML VIAL IVP PRN (17:49)
--- NOTE | 2017-06-24 19:25 | Anesthesia Evaluation PreOp ---
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: Denies Any Significant HX Other Medical History: Hepatic (Hepatitis), Renal (CORIE elevated creatinine), Diabetes Type II Anesthesia History: No Prior Anesthetic Complications Alcohol Use: occasionally Drug use: marijuana, IV Drug Use (3 years ago) Medications and Allergies Subcutaneous Insulin Pump [T:Slim] 1 each MC AD 06/23/17 [History] 3 Allergy/AdvReac Type Severity Reaction Status Date / Time No Known Allergies Allergy Verified 05/17/16 10:29 - Meds/Allergy Pre-op Review Medications Reviewed: Yes Allergies Reviewed: Yes Beta Blockers on Current Med List: No Anesthesia Results - Labs 06/24/17 04:13 06/24/17 04:13 Laboratory Tests 04/11/16 06/24/17 06/24/17 21:49 04:13 04:13 Hgb 12.4 L Hct 36.4 L Plt Count 214 PT 14.0 H INR 1.3 APTT 27.5 Sodium 135 L Potassium 3.5 BUN 18 Creatinine 1.32 H Anesthesia Exam O2 Sat Weight 71.6 kg O2 Sat by Pulse Oximetry 98 O2 Sat by Pulse Oximetry 99 O2 Sat by Pulse Oximetry 97 O2 Sat by Pulse Oximetry 98 O2 Sat by Pulse Oximetry 98 O2 Sat by Pulse Oximetry 99 O2 Sat by Pulse Oximetry 98 Vital Signs Temp Pulse Resp BP Pulse Ox 98.2 F 109 16 136/102 99 06/23/17 14:39 06/23/17 14:39 06/23/17 14:39 06/23/17 14:39 06/23/17 14:39 Height: 6'0 Weight: 157 lbs NPO (# of Hours): MN Pain Scale: 0 - HEENT Pupil (Motor): Pupils equal, EOMI Mallampati: II Teeth: Edentulous Oral Opening: Greater than 3 - WEB DEVELOPER PROGRAMMER LOC: Oriented [employer] DEVELOPER PROGRAMMER Motor: Normal RUE, Normal LUE, Normal RLE, Normal LLE, Normal Face [employer] DEVELOPER PROGRAMMER Sensory: Normal: RUE, LUE, RLE, LLE, Face - Cardiac Rhythm: Regular Murmur: None JVD: No Carotid Bruit: No - Pulmonary Breath Sounds: bilateral Clear Respiratory Effort: Symmetrical Anesthesia Assess/Plan ASA Score: 2 Modified Twining Scale for Level of Consciousness: Cooperative, oriented, and tranquil Anesthetic Plan: General Monitoring Plan: Standard Monitors Recovery Plan: PACU (Discussed GA, agrees to proceed)
[2017-06-25] MEDS: *HR* Promethazine 25 MG/ML VIAL IVP PRN ×2 (02:08→08:46)
[2017-06-25] MEDS: Piperacillin/Tazobactam 3.375 GM in D5% in Water (Mini-Bag+) 100 ML IVPB SCH ×3 (03:52→18:49)
[2017-06-25] MEDS: *HR* Morphine 2 MG/ML SYRINGE IVP PRN ×4 (03:52→19:41)
[2017-06-25] MEDS: *HR* Enoxaparin 40 MG/0.4 ML SYRINGE SQ SCH (05:12)
[2017-06-25] MEDS: Ondansetron 4 MG/2 ML VIAL IVP PRN ×3 (05:56→21:31)
[2017-06-25] MEDS: 0.9 % Sodium Chloride 1,000 ML IVC SCH ×3 (05:57→22:03)
[2017-06-25 06:20] LABS: Basophils % 0.2 %; Eosinophils % 0.1 %; Hematocrit 36.2 % (37.5-50.1); Hemoglobin 12.1 g/dL (12.9-16.9); Immature Granulocytes % 0.8 % (0-4); Lymphocytes # 1.4 K/mcL (0.6-4.6); Lymphocytes % 13.8 %; Mean Corpuscular HGB Conc 33.4 g/dL (31.6-35.5); Mean Corpuscular Hemoglobin 28.1 pg (28.0-33.3); Mean Platelet Volume 10.8 fL (9.4-12.4); Monocytes # 0.8 K/mcL (0.0-1.3); Monocytes % 7.9 %; Neutrophils # 7.9 K/mcL (1.6-8.9); Platelet Count 243 K/mcL (140-400); Red Blood Count 4.31 M/mcL (4.19-5.50); Red Cell Distribution Width 12.9 % (11.5-14.5); Segmented Neutrophils % 77.2 %
[2017-06-25 06:30] LABS: BUN/Creatinine Ratio 13 (6-26); Blood Urea Nitrogen 16 mg/dL (8-26); Calcium 7.6 mg/dL (8.6-10.8); Carbon Dioxide 23 mEq/L (19-29); Chloride 97 mEq/L (98-109); Glucose 213 mg/dL (70-99); Magnesium 1.8 mg/dL (1.6-2.6); Osmolality,Calculated 286 (280-300); Potassium 3.3 mEq/L (3.5-4.5); Sodium 134 mEq/L (136-145); eGFR For African Americans > 60 (> 60); eGFR For Non-African Americans > 60 (> 60)
--- NOTE | 2017-06-25 07:21 | Urology Progress Note ---
Date of Encounter: 06/25/17 Time of Encounter: 07:19 - Assessment and Plan (1) Emphysematous pyelonephritis Current Visit: Yes Status: Acute Assessment and plan: Although WBC has improved, he is still having nausea. I think it would be reasonable to place a stent. That will aid in further drainage from the kidney and allow for ease in definitive stone treatment at a later date. He has been npo. Plan for cystoscopy and left ureteral stent placement. He is aware of the risks of the surgery including, but not limited to bleeding, infection, injury to other structures, need for further procedures, stent irritation, and the risk of anesthesia. He is willing to proceed. Progress Note Narrative: 36 year old man with emphysematous pyelonephritis. WBC improved. Still with some nausea. Objective Initial Vital Signs Temp Pulse Resp BP Pulse Ox 98.2 F 109 16 136/102 99 06/23/17 14:39 06/23/17 14:39 06/23/17 14:39 06/23/17 14:39 06/23/17 14:39 - General physical appearance Present: well developed, well nourished, no distress - Respiratory Present: normal respiratory effort - Abdomen Present: soft - Labs 06/25/17 05:38 06/25/17 05:38 Diabetes panel 06/25/17 Range/Units 05:38 Sodium 134 L (136-145) mEq/L Potassium 3.3 L (3.5-4.5) mEq/L Chloride 97 L (98-109) mEq/L Carbon Dioxide 23 (19-29) mEq/L BUN 16 (8-26) mg/dL Creatinine 1.19 (0.72-1.25) mg/dL Glucose 213 H (70-99) mg/dL Calcium 7.6 L (8.6-10.8) mg/dL Calcium panel 06/25/17 Range/Units 05:38 Calcium 7.6 L (8.6-10.8) mg/dL Pituitary panel 06/25/17 Range/Units 05:38 Sodium 134 L (136-145) mEq/L Potassium 3.3 L (3.5-4.5) mEq/L Chloride 97 L (98-109) mEq/L Carbon Dioxide 23 (19-29) mEq/L BUN 16 (8-26) mg/dL Creatinine 1.19 (0.72-1.25) mg/dL Glucose 213 H (70-99) mg/dL Calcium 7.6 L (8.6-10.8) mg/dL Adrenal panel 06/25/17 Range/Units 05:38 Sodium 134 L (136-145) mEq/L Potassium 3.3 L (3.5-4.5) mEq/L Chloride 97 L (98-109) mEq/L Carbon Dioxide 23 (19-29) mEq/L BUN 16 (8-26) mg/dL Creatinine 1.19 (0.72-1.25) mg/dL Glucose 213 H (70-99) mg/dL Calcium 7.6 L (8.6-10.8) mg/dL Consult Discharge Plan - Plan Referrals: Michelle Amin CNP [Primary Care Provider] - Camilo iLn MD [Partnered Physician] -
[2017-06-25] MEDS: Insulin LISPRO 300 UNITS/3 ML VIAL SQ SCH ×4 (08:38→20:35)
[2017-06-25] MEDS: Pantoprazole 40 MG VIAL IVP SCH (08:46)
[2017-06-25] MEDS: Fluconazole 200 MG/100 ML 200 MG/100 ML BAG IVPB SCH (08:46)
--- NOTE | 2017-06-25 10:59 | Infectious Disease Progress No ---
Date of Encounter: 06/25/17 Time of Encounter: 10:57 - Assessment and Plan (1) Sepsis Current Visit: No Status: Resolved The patient had two SIRS criteria plus CORIE on admission. No lactic acid was checked. Add to AM labs now. Likely secondary to emphysematous pyelonephritis. Resolved. Tachycardia has resolved. WBC has normalized. Blood cultures drawn 06/23/17 are NGTD x 2 sets. Qualifiers: Sepsis type: sepsis due to unspecified organism Qualified Code(s): A41.9 - Sepsis, unspecified organism (2) Emphysematous pyelonephritis Current Visit: Yes Status: Acute Causative organism unclear, yeast vs. bacterial infection. Urine culture positive for only yeast at this point. CT of the abdomen and pelvis done without contrast shows left perinephric stranding with air in the collecting system, concerning for gas-forming organism. Additionally, there are several left renal calculi with mild hydronephrosis. Urology consulted and following. Case discussed with Dr. Lin. No indication to place a percutaneous drain, but planning on ureteral stent placement later today. Continue Zosyn 3.375 grams IV Q8H. Continue fluconazole 200mg IV daily. Can switch to PO when patient able to tolerate food/fluids. Duration of treatment depends on the clinical picture. Monitor renal and liver function and dose-adjust antibiotics. (3) Candiduria Current Visit: Yes Status: Acute Urinalysis and culture positive for yeast. Previous urine cultures positive for Jade albicans. The patient will be undergoing urological procedure today. Continue fluconazole 200mg IV daily in anticipation of stent placement later today. Duration of treatment depends on the clinical picture. Monitor LFTs periodically. (4) CORIE (acute kidney injury) Current Visit: Yes Status: Acute Serum creatinine 1.37 on admission. Resolved. Likely secondary to hydronephrosis. Continue to trend. Dose-adjust antibiotics as needed. Avoid nephrotoxins as able. (5) Nausea and vomiting Current Visit: Yes Status: Acute Likely secondary to current infectious process. Continue supportive care. Further management per the primary team. Qualifiers: Vomiting type: unspecified Vomiting Intractability: intractable Qualified Code(s): R11.2 - Nausea with vomiting, unspecified (6) Diabetes Current Visit: Yes Status: Chronic Uncontrolled. HgbA1C 12.7 Uncontrolled DM likely contributing to the onset of emphysematous pyelonephritis. Recommend aggressive glucose monitoring and control to prevent re-infection. Management per the primary team. Patient requests outpatient endocrinology referral after discharge. Qualifiers: Diabetes mellitus type: type 1 Diabetes mellitus complication status: with hyperglycemia Qualified Code(s): E10.65 - Type 1 diabetes mellitus with hyperglycemia (7) Hepatitis C Current Visit: No Status: Chronic Secondary to previous IVDU. Check HIV--> pending. Qualifiers: Viral hepatitis chronicity: chronic Hepatic coma status: without hepatic coma Qualified Code(s): B18.2 - Chronic viral hepatitis C - Subjective Interval history: He should seen and examined. No acute events noted overnight. Patient states that he continues to have nausea with vomiting. He denies any fevers, but continues to report chills. He denies any chest pain, shortness of breath, or cough. He denies any late last night, but he has been nothing by mouth since midnight. He does report that he ate a small amount of Jell-O yesterday, but was unable to keep it down. He continues to report suprapubic abdominal pain and bilateral lower back pain. He denies any oral thrush or any skin lesions. He continues to deny any urinary complaints. He is scheduled for ureteral stent placement later today. Infect Dis PN-Objective Data - Labs CBC & Chem 7: 06/25/17 05:38 06/25/17 05:38 Labs: Laboratory Results - last 24 hr 06/24/17 06/24/17 06/24/17 11:24 12:32 16:27 WBC RBC Hgb Hct MCV MCH MCHC RDW Plt Count MPV Immature Gran % Seg Neutrophils % Lymphocytes % Monocytes % Eosinophils % Basophils % Neutrophils # Lymphocytes # Monocytes # Eosinophils # Basophils # Sodium Potassium Chloride Carbon Dioxide BUN Creatinine Est GFR ( Amer) Est GFR (Non-Af Amer) BUN/Creatinine Ratio Glucose POC Glucose 161 H 130 H Calculated Osmolality Lactic Acid 0.7 Calcium Magnesium 06/24/17 06/25/17 06/25/17 19:57 05:30 05:38 WBC 10.2 RBC 4.31 Hgb 12.1 L Hct 36.2 L MCV 84.0 MCH 28.1 MCHC 33.4 RDW 12.9 Plt Count 243 MPV 10.8 Immature Gran % 0.8 Seg Neutrophils % 77.2 Lymphocytes % 13.8 Monocytes % 7.9 Eosinophils % 0.1 Basophils % 0.2 Neutrophils # 7.9 Lymphocytes # 1.4 Monocytes # 0.8 Eosinophils # 0.0 Basophils # 0.0 Sodium Potassium Chloride Carbon Dioxide BUN Creatinine Est GFR ( Amer) Est GFR (Non-Af Amer) BUN/Creatinine Ratio Glucose POC Glucose 172 H 190 H Calculated Osmolality Lactic Acid Calcium Magnesium 06/25/17 05:38 WBC RBC Hgb Hct MCV MCH MCHC RDW Plt Count MPV Immature Gran % Seg Neutrophils % Lymphocytes % Monocytes % Eosinophils % Basophils % Neutrophils # Lymphocytes # Monocytes # Eosinophils # Basophils # Sodium 134 L Potassium 3.3 L Chloride 97 L Carbon Dioxide 23 BUN 16 Creatinine 1.19 Est GFR ( Amer) > 60 Est GFR (Non-Af Amer) > 60 BUN/Creatinine Ratio 13 Glucose 213 H POC Glucose Calculated Osmolality 286 Lactic Acid Calcium 7.6 L Magnesium 1.8 Cultures: Cultures 06/23/17 18:18 Blood Culture - Preliminary Peripheral Venipuncture No growth. 06/23/17 18:18 Blood Culture - Preliminary Peripheral Venipuncture No growth. 06/23/17 15:30 Urine Culture - Preliminary Urine,Clean Catch Yeast Species Exam - Constitutional Vitals: Temp Pulse Resp BP Pulse Ox 98.8 F 84 15 133/82 98 06/25/17 10:36 06/25/17 10:36 06/25/17 10:36 06/25/17 10:36 06/25/17 10:36 General appearance: average body habitus, cooperative, no acute distress - Head Head exam: Present: atraumatic, normal inspection, normocephalic - Eye Eye exam: Present: EOMI, normal appearance, PERRL Pupils: Present: normal accommodation - ENT ENT exam: Present: mucous membranes moist - Neck Neck exam: Present: normal inspection - Respiratory Respiratory exam: Present: CTAB. Absent: rales, respiratory distress, rhonchi, wheezes - Cardiovascular Cardiovascular exam: Present: RRR, +S1, +S2 - GI/Abdominal GI/Abdominal exam: Present: normal bowel sounds, soft, tenderness (Generalized) . Absent: distended - Extremities Exam Extremities exam: Present: normal inspection. Absent: joint swelling, pedal edema, tenderness - Back Exam Back exam: Present: CVA tenderness (L), CVA tenderness (R), normal inspection - Neurological Exam Neurological exam: Present: alert, oriented X3, no focal deficits - Psychiatric Psychiatric exam: Present: normal affect, normal mood - Skin Skin exam: Present: dry, intact, normal color, warm Consult Discharge Plan - Plan Referrals: Michelle Amin CNP [Primary Care Provider] - Camilo Lin MD [Partnered Physician] -
[2017-06-25] MEDS ORDERED: Lidocaine -MPF 2% 2 ML VIAL ONE (12:09)
[2017-06-25] MEDS ORDERED: *HR* Succinylcholine 200 MG/10 ML VIAL IVP ONE (12:09)
[2017-06-25] MEDS ORDERED: Ondansetron 4 MG/2 ML VIAL ONE (12:09)
[2017-06-25] MEDS ORDERED: Dexamethasone 4 MG/ML VIAL ONE (12:09)
[2017-06-25] MEDS ORDERED: *HR* FentaNYL (PF) 100 MCG/2 ML VIAL ONE (12:09)
[2017-06-25] MEDS ORDERED: *HR* Propofol 200 MG/20 ML VIAL IVP ONE (12:09)
[2017-06-25] MEDS ORDERED: *HR* Midazolam HCl 2 MG/2 ML VIAL ONE (12:09)
--- NOTE | 2017-06-25 12:18 | Operative Note ---
Date of procedure: 06/25/17 Pre-op diagnosis: Left emphysematous pyelonephritis. Left renal stone Post-op diagnosis: same Procedure: Cystoscopy and left ureteral stent placement. Implants: 6 [place] by 26 cm double-J stent. Complications: None. Anesthesia: KATHY Surgeon: Camilo Lin Estimated blood loss (cc): 1 Specimen: left renal aspirate Condition: stable Disposition: PACU Procedure in Detail: Indications: Micheal is a 36-year-old man who has a history of nephrolithiasis and a urinary tract infection. He had a CT which showed left renal stones and gas within the left collecting system. He elected to undergo a cystoscopy and left ureteral stent placement. He was aware of the risks of the procedure including but not limited to bleeding, infection, injury to other structures, need for further procedures, stent irritation, need for nephrostomy tube, need for open repair, risks otherwise unforeseen, and the risk of anesthesia. He is willing to proceed. Procedure in Detail: After informed consent was obtained the patient was brought back to the operating room and placed in supine position. A time out was performed. General anesthesia was administered and a LMA was placed. He was then placed in the lithotomy position. He was prepped and draped in the usual sterile fashion. Cystoscopy was performed. The anterior urethra was normal. There was no evidence of bladder tumors. The ureteral orifices were in the normal orthotopic position. There was no duplication of the ureteral orifices. The Zip wire was placed in the left ureteral orifice and brought into the kidney under fluoroscopic guidance. The open-ended catheter was placed over the wire into the kidney. An aspirate of the urine was obtained for culture. The wire was replaced. A 6 [place] by 26cm JJ stent was then placed. The dangle strings were removed. The bladder was drained. The patient was then awakened from general anesthesia and brought to recovery room in good condition. All sponge, needle, and instrument counts were correct.
--- NOTE | 2017-06-25 13:09 | Anesthesia Evaluation Post Op ---
Date of Encounter: 06/25/17 Time of Encounter: 13:08 - Vital Signs Vital Signs: Vital Signs/O2 Sat, Most Current Temp Pulse Resp BP Pulse Ox 98 F 82 16 154/91 99 06/25/17 12:42 06/25/17 13:02 06/25/17 13:02 06/25/17 13:02 06/25/17 13:02 - Lungs Lungs: Clear Ascult./Percussion - Airway Airway: Non-obstructed - Cardiovascular Regular Rate - Mental Status Mental Status: Alert & Oriented, Answers Appropriately - Pain Pain Scale: 3 Pain Scale used: Numeric (1 - 10) - Nausea Vomiting Nausea Vomiting: Not Present - Hydration Hydration: NPO, Has not voided - Discharge PostOp Status: Transfer Patient to floor
[2017-06-25] MEDS ORDERED: Acetaminophen 325 MG TABLET PO PRN (13:31)
[2017-06-25] MEDS ORDERED: Naloxone 0.4 MG/ML INJ IVP PRN (13:31)
[2017-06-25] MEDS ORDERED: *HR* Dextrose 50 % in Water (Syg) 50 ML SYRINGE IVP PRN (13:31)
[2017-06-25] MEDS ORDERED: Dextrose Gel 15 GM PO PRN ×2 (13:31)
[2017-06-25] MEDS ORDERED: D5% in Water 1,000 ML IVC PRN (13:31)
[2017-06-25] MEDS ORDERED: *HR* OxyCODONE/APAP 5/325 TABLET PO PRN (13:31)
--- NOTE | 2017-06-25 16:52 | Internal Med Progress Note ---
Date of Encounter: 06/25/17 Time of Encounter: 16:48 - Assessment and plan (1) Sepsis Current Visit: No Status: Resolved Assessment and plan: Improving Urine cx growing Yeast Started him on Diflucan Cont empirical abx Zosyn cont IV hydration cont monitor closely Blood cx so far no growth Qualifiers: Sepsis type: sepsis due to unspecified organism Qualified Code(s): A41.9 - Sepsis, unspecified organism (2) Pyelonephritis, acute Current Visit: No Status: Acute Assessment and plan: see above (3) Acute renal failure Current Visit: No Status: Acute Assessment and plan: due to sepsis and Pyelonephritis Possible obstructive uropathy too improved avoid nephrotoxic meds Qualifiers: Acute renal failure type: unspecified Qualified Code(s): N17.9 - Acute kidney failure, unspecified (4) Hydronephrosis Current Visit: No Status: Acute Assessment and plan: with Left renal calculi s/p Cystoscope and stent placement today Qualifiers: Hydronephrosis type: unspecified Qualified Code(s): N13.30 - Unspecified hydronephrosis (5) Nephrolithiasis Current Visit: No Status: Acute (6) Type 1 diabetes mellitus Current Visit: No Status: Acute Assessment and plan: placed him on ISS here on Diabetic diet take him off his home insulin pump Qualifiers: Diabetes mellitus complication status: without complication Qualified Code( s): E10.9 - Type 1 diabetes mellitus without complications - Subjective Interval history: Mr. Ortega is a 36 year old male with a past medical history of type 1 diabetes and hepatitis. Presents to [facility] today with nausea vomiting diarrhea flank pain and abdominal pain which started Wednesday. Reports approximately 10 episodes of vomiting per day with a minimal amount of coffee- ground emesis a few times a day. All information obtained from chart review and patient report. Patient reports that her abdominal pain nausea vomiting and diarrhea started Wednesday and is continuous as of this visit. He describes abdominal pain has sharp in the left lower right lower quadrant with radiation around to mid back. He denies irritating factors are alleviation of pain. Denies fever, night sweats, dysuria, hematuria, chills, hematochezia. Metabolic panel results a creatinine of 1.37 with potential AK I, potassium 3.3 , sodium 132. CBC, elevated white count of 13.3. CT of the abdomen revealed air in the collecting system with concern for emphysematous pyelonephritis Pt was admitted here for acute emphysematous pyelonephritis. He just came back from OR . Resting comfortably. Denied any CP / SOB - Constitutional Vitals: Temp Pulse Resp BP Pulse Ox 98.6 F 93 16 148/95 98 06/25/17 15:14 06/25/17 15:14 06/25/17 15:14 06/25/17 15:14 06/25/17 15:14 General appearance: Present: cooperative, A&O X 3, answers questions appropriately - Head Head exam: Present: atraumatic, normal inspection - Respiratory Respiratory exam: Present: decreased breath sounds, wheezes. Absent: respiratory distress, rhonchi - Cardiovascular Cardiovascular exam: Present: RRR, +S1, +S2 - GI/Abdominal GI/Abdominal exam: Present: normal bowel sounds, soft. Absent: rebound, rigid, tenderness - Extremities Exam Extremities exam: Absent: calf tenderness, pedal edema, tenderness - Neurological Exam Neurological exam: Present: alert, oriented X3 - Psychiatric Psychiatric exam: Present: normal affect, normal mood Internal Medicine: Result - Labs CBC & Chem 7: 06/25/17 05:38 06/25/17 05:38 Labs: Short CBC 06/25/17 Range/Units 05:38 WBC 10.2 (4.3-11.1) K/mcL Hgb 12.1 L (12.9-16.9) g/dL Hct 36.2 L (37.5-50.1) % Plt Count 243 (140-400) K/mcL Neutrophils # 7.9 (1.6-8.9) K/mcL BMP 06/25/17 05:38 Sodium 134 L Potassium 3.3 L Chloride 97 L Carbon Dioxide 23 BUN 16 Creatinine 1.19 Glucose 213 H Calcium 7.6 L - VTE Documentation of Mechanical Device: Intermittent pneumatic compression device Consult Discharge Plan - Plan Referrals: Michelle Amin CNP [Primary Care Provider] - Camilo Lin MD [Partnered Physician] -
[2017-06-26] MEDS: 0.9 % Sodium Chloride 1,000 ML IVC SCH ×2 (00:05→06:15)
[2017-06-26] MEDS: *HR* Morphine 2 MG/ML SYRINGE IVP PRN ×4 (01:48→22:47)
[2017-06-26] MEDS: *HR* Promethazine 25 MG/ML VIAL IVP PRN ×2 (01:52→22:47)
[2017-06-26] MEDS: Piperacillin/Tazobactam 3.375 GM in D5% in Water (Mini-Bag+) 100 ML IVPB SCH ×3 (03:01→18:33)
[2017-06-26] MEDS: *HR* Enoxaparin 40 MG/0.4 ML SYRINGE SQ SCH (06:15)
[2017-06-26] MEDS: Ondansetron 4 MG/2 ML VIAL IVP PRN ×2 (06:28→15:53)
[2017-06-26 08:05] LABS: Basophils % 0.2 %; Eosinophils % 0.3 %; Hematocrit 34.8 % (37.5-50.1); Hemoglobin 11.9 g/dL (12.9-16.9); Immature Granulocytes % 0.5 % (0-4); Lymphocytes % 18.1 %; Mean Corpuscular HGB Conc 34.2 g/dL (31.6-35.5); Mean Corpuscular Hemoglobin 28.5 pg (28.0-33.3); Mean Corpuscular Volume 83.3 fL (83.0-100.0); Mean Platelet Volume 11.1 fL (9.4-12.4); Monocytes # 1.3 K/mcL (0.0-1.3); Monocytes % 11.4 %; Neutrophils # 7.6 K/mcL (1.6-8.9); Platelet Count 227 K/mcL (140-400); Red Blood Count 4.18 M/mcL (4.19-5.50); Red Cell Distribution Width 13.1 % (11.5-14.5); Segmented Neutrophils % 69.5 %
[2017-06-26 08:34] LABS: Blood Urea Nitrogen 11 mg/dL (8-26); Carbon Dioxide 26 mEq/L (19-29); Chloride 100 mEq/L (98-109); Potassium 3.8 mEq/L (3.5-4.5); Sodium 135 mEq/L (136-145)
[2017-06-26 08:35] LABS: BUN/Creatinine Ratio 9 (6-26); Calcium 7.8 mg/dL (8.6-10.8); Glucose 280 mg/dL (70-99); Magnesium 1.8 mg/dL (1.6-2.6); Osmolality,Calculated 289 (280-300); eGFR For African Americans > 60 (> 60); eGFR For Non-African Americans > 60 (> 60)
--- NOTE | 2017-06-26 08:35 | Urology Progress Note ---
Date of Encounter: 06/26/17 Time of Encounter: 08:33 - Assessment and Plan (1) Emphysematous pyelonephritis Current Visit: Yes Status: Acute Assessment and plan: Postoperative day #1 status post cystoscopy and left ureteral stent placement. He is doing well. Plan: 1. I will arrange for definitive left sided stone treatment as an outpatient. 2. Appreciate infectious disease recommendations. I will await their final antibiotic regimen. 3. Okay to discharge home from a urology standpoint once cleared by the hospitalist. Progress Note Narrative: Status post cystoscopy and left ureteral stent placement. Postoperative day #1. He is doing well. Nausea has improved somewhat. Objective Initial Vital Signs Temp Pulse Resp BP Pulse Ox 98.2 F 109 16 136/102 99 06/23/17 14:39 06/23/17 14:39 06/23/17 14:39 06/23/17 14:39 06/23/17 14:39 - General physical appearance Present: well developed, well nourished, no distress - Respiratory Present: normal respiratory effort - Abdomen Present: soft - Labs 06/26/17 06:26 06/25/17 05:38 - VTE Documentation of Mechanical Device: Intermittent pneumatic compression device Consult Discharge Plan - Plan Referrals: Michelle Amin CNP [Primary Care Provider] - Camilo Lin MD [Partnered Physician] -
[2017-06-26] MEDS: Insulin LISPRO 300 UNITS/3 ML VIAL SQ SCH ×4 (09:06→22:48)
[2017-06-26] MEDS: Pantoprazole 40 MG VIAL IVP SCH (09:07)
[2017-06-26] MEDS: Fluconazole 200 MG/100 ML 200 MG/100 ML BAG IVPB SCH (09:07)
--- NOTE | 2017-06-26 15:34 | Internal Med Progress Note ---
Date of Encounter: 06/26/17 Time of Encounter: 15:32 - Assessment and plan (1) Sepsis Current Visit: No Status: Resolved Assessment and plan: Improving Urine cx growing Yeast Cont Diflucan 200mg Cont empirical IV abx Zosyn..will switch to PO Levofloxacin upon d/c home will treat at least total 10 days of abx and anti fungal since he did have emphysematous pyelonephritis d/c IVF cont monitor closely Blood cx so far no growth Qualifiers: Sepsis type: sepsis due to unspecified organism Qualified Code(s): A41.9 - Sepsis, unspecified organism (2) Pyelonephritis, acute Current Visit: No Status: Acute Assessment and plan: see above (3) Hematuria Current Visit: Yes Status: Acute Assessment and plan: due to renal calculi and pyelonephritis so far stable Hb s/p stent placement cont close monitoring Qualifiers: Qualified Code(s): R31.9 - Hematuria, unspecified (4) Acute renal failure Current Visit: No Status: Acute Assessment and plan: due to sepsis and Pyelonephritis Possible obstructive uropathy too improved avoid nephrotoxic meds Qualifiers: Acute renal failure type: unspecified Qualified Code(s): N17.9 - Acute kidney failure, unspecified (5) Hydronephrosis Current Visit: No Status: Acute Assessment and plan: with Left renal calculi s/p Cystoscope and stent placement Qualifiers: Hydronephrosis type: unspecified Qualified Code(s): N13.30 - Unspecified hydronephrosis (6) Nephrolithiasis Current Visit: No Status: Acute (7) Type 1 diabetes mellitus Current Visit: No Status: Acute Assessment and plan: cont on ISS here on Diabetic diet Qualifiers: Diabetes mellitus complication status: without complication Qualified Code( s): E10.9 - Type 1 diabetes mellitus without complications - Subjective Interval history: Mr. Ortega is a 36 year old male with a past medical history of type 1 diabetes and hepatitis. Presents to [facility] today with nausea vomiting diarrhea flank pain and abdominal pain which started Wednesday. Reports approximately 10 episodes of vomiting per day with a minimal amount of coffee- ground emesis a few times a day. All information obtained from chart review and patient report. Patient reports that her abdominal pain nausea vomiting and diarrhea started Wednesday and is continuous as of this visit. He describes abdominal pain has sharp in the left lower right lower quadrant with radiation around to mid back. He denies irritating factors are alleviation of pain. Denies fever, night sweats, dysuria, hematuria, chills, hematochezia. Metabolic panel results a creatinine of 1.37 with potential AK I, potassium 3.3 , sodium 132. CBC, elevated white count of 13.3. CT of the abdomen revealed air in the collecting system with concern for emphysematous pyelonephritis Pt was admitted here for acute emphysematous pyelonephritis. Had cystoscope and left ureter stent placed in 06/25/17. Still c/o severe hematuria and mild Left flank pain. Still has nasuea +. Denied any CP / SOB - Constitutional Vitals: Temp Pulse Resp BP Pulse Ox 98.5 F 77 14 129/79 98 06/26/17 10:53 06/26/17 10:53 06/26/17 10:53 06/26/17 10:53 06/26/17 10:53 General appearance: Present: cooperative, A&O X 3, answers questions appropriately - Head Head exam: Present: atraumatic, normal inspection - Respiratory Respiratory exam: Present: decreased breath sounds, wheezes. Absent: rales, respiratory distress, rhonchi - Cardiovascular Cardiovascular exam: Present: RRR, +S1, +S2. Absent: diastolic murmur, gallop, rubs, systolic murmur - GI/Abdominal GI/Abdominal exam: Present: soft. Absent: rebound, rigid, tenderness - Extremities Exam Extremities exam: Absent: calf tenderness, pedal edema, tenderness - Back Exam Back exam: Present: CVA tenderness (L) (mild). Absent: CVA tenderness (R) - Neurological Exam Neurological exam: Present: alert, oriented X3 - Psychiatric Psychiatric exam: Present: normal affect, normal mood Internal Medicine: Result - Labs CBC & Chem 7: 06/26/17 06:26 06/26/17 06:26 Labs: Short CBC 06/26/17 Range/Units 06:26 WBC 10.9 (4.3-11.1) K/mcL Hgb 11.9 L (12.9-16.9) g/dL Hct 34.8 L (37.5-50.1) % Plt Count 227 (140-400) K/mcL Neutrophils # 7.6 (1.6-8.9) K/mcL BMP 06/26/17 06:26 Sodium 135 L Potassium 3.8 Chloride 100 Carbon Dioxide 26 BUN 11 Creatinine 1.18 Glucose 280 H Calcium 7.8 L - Impressions Impressions Fluoroscopy 06/25/17 00:00 IMPRESSION: Intraprocedural fluoroscopic spot images as above. See separate procedure report for more information. D/ / Gary Cao MD / Gary Cao MD Interpreting Provider: Gary Cao MD - VTE Documentation of Mechanical Device: Intermittent pneumatic compression device Consult Discharge Plan - Plan Referrals: Michelle Amin CNP [Primary Care Provider] - Camilo Lin MD [Partnered Physician] -
[2017-06-27] MEDS: Piperacillin/Tazobactam 3.375 GM in D5% in Water (Mini-Bag+) 100 ML IVPB SCH ×2 (03:58→12:58)
[2017-06-27 04:58] LABS: Basophils % 0.3 %; Eosinophils # 0.2 K/mcL (0.0-0.6); Eosinophils % 2.1 %; Hematocrit 37.6 % (37.5-50.1); Immature Granulocytes % 0.4 % (0-4); Lymphocytes # 2.7 K/mcL (0.6-4.6); Lymphocytes % 27.1 %; Mean Corpuscular HGB Conc 34.6 g/dL (31.6-35.5); Mean Corpuscular Hemoglobin 28.4 pg (28.0-33.3); Mean Corpuscular Volume 82.1 fL (83.0-100.0); Mean Platelet Volume 10.6 fL (9.4-12.4); Monocytes # 1.1 K/mcL (0.0-1.3); Monocytes % 11.2 %; Neutrophils # 5.9 K/mcL (1.6-8.9); Platelet Count 231 K/mcL (140-400); Red Blood Count 4.58 M/mcL (4.19-5.50); Red Cell Distribution Width 13.1 % (11.5-14.5); Segmented Neutrophils % 58.9 %
[2017-06-27] MEDS: *HR* Enoxaparin 40 MG/0.4 ML SYRINGE SQ SCH (05:41)
[2017-06-27] MEDS: Insulin LISPRO 300 UNITS/3 ML VIAL SQ SCH ×2 (07:59→12:58)
[2017-06-27] MEDS: Fluconazole 200 MG/100 ML 200 MG/100 ML BAG IVPB SCH (08:00)
[2017-06-27] MEDS: Pantoprazole 40 MG VIAL IVP SCH (08:01)
--- NOTE | 2017-06-27 08:26 | Urology Progress Note ---
Date of Encounter: 06/27/17 Time of Encounter: 08:25 - Assessment and Plan (1) Emphysematous pyelonephritis Current Visit: Yes Status: Acute Assessment and plan: Status post left ureteral stent insertion. Postoperative day #2. He has yeast in his urine. 1. I'll continue the indwelling stent until definitive stone extraction. We'll perform the surgery as an outpatient. 2. Appreciate internal medicine support. We'll follow along. Progress Note Narrative: Postoperative day #2 status post left ureteral stent insertion. He is doing well. Nausea is improved. Urine culture is growing out yeast. He is on IV fluconazole. Objective Initial Vital Signs Temp Pulse Resp BP Pulse Ox 98.2 F 109 16 136/102 99 06/23/17 14:39 06/23/17 14:39 06/23/17 14:39 06/23/17 14:39 06/23/17 14:39 - General physical appearance Present: well developed, well nourished, no distress - Respiratory Present: normal respiratory effort - Abdomen Present: soft - Labs 06/27/17 04:17 06/26/17 06:26 Diabetes panel 06/26/17 Range/Units 06:26 Sodium 135 L (136-145) mEq/L Potassium 3.8 (3.5-4.5) mEq/L Chloride 100 (98-109) mEq/L Carbon Dioxide 26 (19-29) mEq/L BUN 11 (8-26) mg/dL Creatinine 1.18 (0.72-1.25) mg/dL Glucose 280 H (70-99) mg/dL Calcium 7.8 L (8.6-10.8) mg/dL Calcium panel 06/26/17 Range/Units 06:26 Calcium 7.8 L (8.6-10.8) mg/dL Pituitary panel 06/26/17 Range/Units 06:26 Sodium 135 L (136-145) mEq/L Potassium 3.8 (3.5-4.5) mEq/L Chloride 100 (98-109) mEq/L Carbon Dioxide 26 (19-29) mEq/L BUN 11 (8-26) mg/dL Creatinine 1.18 (0.72-1.25) mg/dL Glucose 280 H (70-99) mg/dL Calcium 7.8 L (8.6-10.8) mg/dL Adrenal panel 06/26/17 Range/Units 06:26 Sodium 135 L (136-145) mEq/L Potassium 3.8 (3.5-4.5) mEq/L Chloride 100 (98-109) mEq/L Carbon Dioxide 26 (19-29) mEq/L BUN 11 (8-26) mg/dL Creatinine 1.18 (0.72-1.25) mg/dL Glucose 280 H (70-99) mg/dL Calcium 7.8 L (8.6-10.8) mg/dL - VTE Documentation of Mechanical Device: Intermittent pneumatic compression device Consult Discharge Plan - Plan Referrals: Michelle Amin CNP [Primary Care Provider] - Camilo Lin MD [Partnered Physician] -
[2017-06-27 11:56] VITALS: BP 108/72
--- NOTE | 2017-06-27 13:52 | Discharge Summary ---
Date of Encounter: 06/27/17 Time of Encounter: 13:48 - Discharge Diagnosis (1) Sepsis Priority: Primary Status: Resolved Qualifiers: Sepsis type: sepsis due to unspecified organism Qualified Code(s): A41.9 - Sepsis, unspecified organism (2) Pyelonephritis, acute Priority: Primary Status: Acute (3) Hematuria Priority: Secondary Status: Acute Qualifiers: Qualified Code(s): R31.9 - Hematuria, unspecified (4) Acute renal failure Priority: Secondary Status: Acute Qualifiers: Acute renal failure type: unspecified Qualified Code(s): N17.9 - Acute kidney failure, unspecified (5) Hydronephrosis Priority: Secondary Status: Acute Qualifiers: Hydronephrosis type: unspecified Qualified Code(s): N13.30 - Unspecified hydronephrosis (6) Nephrolithiasis Priority: Secondary Status: Acute (7) Type 1 diabetes mellitus Priority: Secondary Status: Acute Qualifiers: Diabetes mellitus complication status: without complication Qualified Code( s): E10.9 - Type 1 diabetes mellitus without complications - Discharge Medications Prescriptions: Fluconazole [Diflucan] 200 mg PO DAILY 6 Days Lactobacillus [Culturelle] 2 each PO BID 10 Days Levofloxacin [Levaquin] 500 mg PO DAILY 6 Days Home Medications: Subcutaneous Insulin Pump [T:Slim] 1 each MC AD 06/23/17 [History] Fluconazole [Diflucan] 200 mg PO DAILY 6 Days 06/27/17 [Rx] Lactobacillus [Culturelle] 2 each PO BID 10 Days 06/27/17 [Rx] Levofloxacin [Levaquin] 500 mg PO DAILY 6 Days 06/27/17 [Rx] Allergies/Adverse Reactions: 3 Allergy/AdvReac Type Severity Reaction Status Date / Time No Known Allergies Allergy Verified 05/17/16 10:29 Date of admission: 06/23/17 19:27 Primary care physician: Michelle Amin CNP - Patient Status Disposition: Home, Self-Care Condition: Good Overall status at discharge: patient is back to baseline - Discharge Instructions Follow Up With: Michelle Amin CNP [Primary Care Provider] - Camilo Lin MD [Partnered Physician] - - Diet and Activity Activity: increase activity as tolerated Diet: diabetic diet Hospital course: Mr. Ortega is a 36 year old male with a past medical history of type 1 diabetes and hepatitis. Presents to [facility] today with nausea vomiting diarrhea flank pain and abdominal pain which started Wednesday. Reports approximately 10 episodes of vomiting per day with a minimal amount of coffee- ground emesis a few times a day. All information obtained from chart review and patient report. Patient reports that her abdominal pain nausea vomiting and diarrhea started Wednesday and is continuous as of this visit. He describes abdominal pain has sharp in the left lower right lower quadrant with radiation around to mid back. He denies irritating factors are alleviation of pain. Denies fever, night sweats, dysuria, hematuria, chills, hematochezia. Metabolic panel results a creatinine of 1.37 with potential AK I, potassium 3.3 , sodium 132. CBC, elevated white count of 13.3. 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 He was started on empirical abx with Zosyn. Urology and ID consulted. Urologist did evaluated the pt and did cystoscope with left ureter stent placed on . Pt's urine cx started growing yeast so started him on Diflucan IV. He remained afebrile and his WBC also trended down to normal. His hematuria improved. He is tolerating PO intake well. SO will d/c him home today in stable condition with PO Abx Levofloxacin and Diflucan for total 10 days course. Recommend to f/u with PCP in one week. Also need to f/u with Urologist as an out pt for stone extraction. - Time Spent with Patient Total time spent providing and/or coordinating discharge services: - Constitutional Vitals: Temp Pulse Resp BP Pulse Ox 98.4 F 84 16 108/72 98 06/27/17 11:49 06/27/17 11:49 06/27/17 11:49 06/27/17 11:49 06/27/17 11:49 General appearance: Present: cooperative, A&O X 3, answers questions appropriately - Head Head exam: Present: atraumatic, normal inspection - Respiratory Respiratory exam: Present: decreased breath sounds. Absent: rales, respiratory distress, rhonchi, wheezes - Cardiovascular Cardiovascular exam: Present: RRR, +S1, +S2. Absent: systolic murmur - GI/Abdominal GI/Abdominal exam: Present: normal bowel sounds, soft. Absent: rebound, rigid, tenderness - Extremities Exam Extremities exam: Absent: calf tenderness, pedal edema, tenderness - Back Exam Back exam: Absent: CVA tenderness (L), CVA tenderness (R) - Neurological Exam Neurological exam: Present: alert, oriented X3 - Psychiatric Psychiatric exam: Present: normal affect, normal mood - VTE Documentation of Mechanical Device: Intermittent pneumatic compression device
== END 2017-06-27 14:38 | disposition home or self-care (01) | DRG 720 ==
LOC: 3ANU 14:36 → EMEROO 14:36 → 3ANU 19:14
PROVIDERS: ADMIT Internal Medicine; ATTEND Family Medicine

== ENCOUNTER 2017-09-04 17:55 | Observation (INO) ==
[2017-09-04 18:17] LABS: Bilirubin,Urine Negative (Negative); Blood,Urine Large (Negative); Clarity,Urine Turbid (Clear); Color,Urine Yellow (Yellow); Glucose,Urine (UA) Normal (Normal); Ketones,Urine Trace mg/dL (Negative); Leukocyte Esterase,Urine Large (Negative); Nitrite,Urine Negative (Negative); PH,Urine 6.5 pH Units (5.0-8.0); Protein,Urine 100 mg/dL (Neg-Trace); Specific Gravity,Urine 1.016 (1.010-1.025); Urobilinogen,Urine Normal (Normal)
[2017-09-04] MEDS ORDERED: 0.9 % Sodium Chloride 1,000 ML IVC ONE (18:18)
[2017-09-04] MEDS ORDERED: *HR* HYDROmorphone (PF) 1 MG/ML SYRINGE IVP ONE (18:19)
[2017-09-04] MEDS ORDERED: Ondansetron 4 MG/2 ML VIAL IVP ONE (18:19)
[2017-09-04 18:20] LABS: Bacteria,Urine Few per hpf (None-Few); Squamous Epithelial Cell,Urine Many per lpf (None-Few); WBC,Urine TNTC per hpf (0-3)
--- NOTE | 2017-09-04 18:38 | Emergency Department Note ---
START Narrative - START START: I examined this patient and my medical decision-making was reviewed with the Resident Physician. I agree with the documented findings, disposition and treatment plan as described except to the extent set forth below. Patient was independently seen and evaluated by myself. Patient was seen with the emergency medicine resident Dallas Patel Please see copy of her notes for details of this ED encounter management and disposition. Briefly: A 35-year-old male history of IVDA presents with bilateral back pain for approximately 5 days. Has history of multiple kidney stones requiring ureteral stents. He says he feels like his prior kidney stones. Patient fell he was tachycardic at 111 and hypotensive at 97/53 initially systolic 111 before IV fluid rehydration. Patient given IV fluids screening labs urinalysis antibiotics and analgesics and a CT scan. Disposition pending.
[2017-09-04 18:55] LABS: Basophils % 0.1 %; Eosinophils # 0.1 K/mcL (0.0-0.6); Eosinophils % 0.9 %; Hematocrit 43.4 % (37.5-50.1); Hemoglobin 15.2 g/dL (12.9-16.9); Immature Granulocytes % 0.3 % (0-4); Lymphocytes # 2.2 K/mcL (0.6-4.6); Lymphocytes % 20.7 %; Mean Corpuscular Hemoglobin 28.3 pg (28.0-33.3); Mean Corpuscular Volume 80.8 fL (83.0-100.0); Mean Platelet Volume 10.3 fL (9.4-12.4); Monocytes % 9.5 %; Neutrophils # 7.2 K/mcL (1.6-8.9); Platelet Count 265 K/mcL (140-400); Red Blood Count 5.37 M/mcL (4.19-5.50); Red Cell Distribution Width 14.2 % (11.5-14.5); Segmented Neutrophils % 68.5 %
[2017-09-04 18:57] LABS: VBG HCO3 38 mEq/L (21-27); VBG PCO2 50 mmHg (41-51); VBG PH 7.48 pH Units (7.32-7.42); VBG PO2 24 mmHg (25-50)
--- NOTE | 2017-09-04 18:59 | Emergency Department Note ---
Disposition Clinical Impression: Hypokalemia, Renal abscess UTI (urinary tract infection) Qualifiers: Urinary tract infection type: acute cystitis Hematuria presence: with hematuria Qualified Code(s): N30.01 - Acute cystitis with hematuria Disposition: Admitted As Inpatient Condition: Fair Back Pain HPI - General Chief Complaint: ED Back Pain/Injury Stated Complaint: lower back pain Kidney Time Seen by Provider: 09/04/17 18:05 Source: patient Limitations: no limitations Nursing Notes Reviewed: Yes Vital Signs Reviewed: Yes - History of Present Illness HPI Narrative: Patient here for evaluation of back pain and started on Wednesday. Describes his low back pain is bilateral in nature and the "exact same as my previous kidney stones". Patient is a type I diabetic with previous history of pyelonephritis. History of IV drug use with endocarditis. Patient states the back pain is associated with abdominal pain and nausea. This is been progressive in nature since the initiation of the symptoms. Patient states that he is nauseous but no episodes of vomiting. Patient has not had any shortness of breath but has been experiencing some chest heaviness since earlier today at about 12:00. Patient describes the pain as heaviness that is worse with exertion. Has not had any previous cardiac history. No previous cardiac workup. - Related Data Home Medications Medication Instructions Recorded Confirmed Gabapentin [Neurontin] 600 mg PO TID 07/05/17 07/05/17 Quetiapine Fumarate [Seroquel] 50 - 100 mg PO HS 07/05/17 07/05/17 Subcutaneous Insulin Pump [T:Slim] 0 unit MC AD 07/05/17 07/05/17 hydrOXYzine HCl [Hydroxyzine HCl] 25 mg PO BID PRN 07/05/17 07/05/17 Previous Rx's Medication Instructions Recorded Docusate [Colace] 100 mg PO BID #60 capsule 07/05/17 Oxycodone HCl/Acetaminophen 1 each PO Q6H PRN #20 tablet 07/05/17 [Percocet 5-325 mg Tablet] Phenazopyridine HCl [Pyridium] 200 mg PO TIDAC #12 tab 07/05/17 Ciprofloxacin HCl [Cipro] 500 mg PO BID #20 tablet 09/01/17 HYDROcodone/Acet 5/325 mg [[place] 1 tab PO Q4H PRN #14 tab 09/01/17 5-325 mg] Ondansetron [Zofran ODT] 8 mg SL Q4HR #10 tab.rapdis 09/01/17 Allergies Allergy/AdvReac Type Severity Reaction Status Date / Time No Known Allergies Allergy Verified 05/17/16 10:29 Review of Systems: CONSTITUTIONAL: Fatigue and weakness and chills No weight loss, fever HEENT: Eyes: No visual changes. Ears, Nose, Throat: No hearing loss, difficulty talking or unable to swallow. SKIN: No rash or itching. CARDIOVASCULAR: No chest pain, chest pressure or chest discomfort. No palpitations or edema. RESPIRATORY: No shortness of breath, cough or sputum. GASTROINTESTINAL: Abdominal pain with associated nausea GENITOURINARY: No burning on urination or hematuria. NEUROLOGICAL: No headache, dizziness, syncope, paralysis, ataxia, numbness or tingling in the extremities. No change in bowel or bladder control. MUSCULOSKELETAL: Bilateral lower back pain Past Medical History - Past Medical History Medical history: Reports: arthritis, diabetes, hepatitis, kidney stones Surgical history: Reports: no surgical history, other Psychiatric history: Reports: anxiety, depression, other - Social History Smoking Status: Current some day smoker Smokeless Tobacco Status: No Alcohol use: Reports: occasionally Drug use: Reports: marijuana, IV Drug Use Physical Exam General appearance: NAD, conversant Eyes: anicteric sclerae, moist conjunctivae; PERRL HENT: Atraumatic; oropharynx clear with moist mucous membranes and no mucosal ulcerations Neck: Normal inspection; Trachea midline; FROM, supple Lungs: CTA, with normal respiratory effort and no intercostal retractions CV: RRR, no MRGs Abdomen: Soft, mild diffuse abdominal tenderness without guarding or rebound; no CVA tenderness Extremities: No peripheral edema or extremity lymphadenopathy Skin: Normal temperature; no rash, ulcers or lesions Psych: Appropriate mood and affect Neuro: alert and oriented to person, place and time - General Limitations: no limitations General appearance: alert Course - Reevaluation(s) Reevaluation #1: Blood cultures, urine, culture obtained. Vanc Zosyn and fluconazole given. Potassium given. - Consultations Consultation #1: Discussed with hospitalist. Patient is to be placed on Zosyn and fluconazole. Urology consult needs to be placed. Consultation #2: Discussed with urology, Dr. Michelle. Patient symptoms and abscess concerning for renal abscess. Patient's abscess is peripheral in nature. These are more likely related to strep or staph in nature. Patient does have a history of IV drug use. At this time the patient will also be placed on vancomycin. The patient has a history of candidal infections. He may develop a need for interventional radiology consult as well as possible infectious disease consult. Depends on response to initial treatment. Time: 20:29 Vital Signs Temperature 98.2 F 09/04/17 17:56 Pulse Rate 111 09/04/17 17:56 Respiratory Rate 18 09/04/17 17:56 Blood Pressure 95/56 09/04/17 17:56 O2 Sat by Pulse Oximetry 99 09/04/17 17:56 Temperature 98.7 F 09/04/17 22:10 Pulse Rate 94 09/04/17 22:10 Respiratory Rate 14 09/04/17 22:10 Blood Pressure 108/79 09/04/17 22:10 O2 Sat by Pulse Oximetry 98 09/04/17 22:10 Oxygen Delivery Oxygen Delivery Room Air Back Pain/Injury - Medical Records Medical records reviewed: Yes I reviewed the patient's medical records. - Lab Data Lab results reviewed: Yes I reviewed the patient's lab results. Result diagrams: 09/04/17 18:44 09/04/17 18:44 Lab Results 09/04/17 09/04/17 09/04/17 Range/Units 18:07 18:07 18:44 WBC 10.5 (4.3-11.1) K/mcL RBC 5.37 (4.19-5.50) M/mcL Hgb 15.2 D (12.9-16.9) g/dL Hct 43.4 (37.5-50.1) % MCV 80.8 L (83.0-100.0) fL MCH 28.3 (28.0-33.3) pg MCHC 35.0 (31.6-35.5) g/dL RDW 14.2 (11.5-14.5) % Plt Count 265 (140-400) K/mcL MPV 10.3 (9.4-12.4) fL Immature Gran % 0.3 (0-4) % Seg Neutrophils % 68.5 % Lymphocytes % 20.7 % Monocytes % 9.5 % Eosinophils % 0.9 % Basophils % 0.1 % Neutrophils # 7.2 (1.6-8.9) K/mcL Lymphocytes # 2.2 (0.6-4.6) K/mcL Monocytes # 1.0 (0.0-1.3) K/mcL Eosinophils # 0.1 (0.0-0.6) K/mcL Basophils # 0.0 (0.0-0.2) K/mcL VBG pH (7.32-7.42) pH Units VBG pCO2 (41-51) mmHg VBG pO2 (25-50) mmHg VBG HCO3 (21-27) mEq/L Sodium (136-145) mEq/L Potassium (3.5-4.5) mEq/L Chloride (98-109) mEq/L Carbon Dioxide (19-29) mEq/L BUN (8-26) mg/dL Creatinine (0.72-1.25) mg/dL Est GFR ( Amer) (> 60) Est GFR (Non-Af Amer) (> 60) BUN/Creatinine Ratio (6-26) Glucose (70-99) mg/dL Est Mean Plasma Glucose mg/dl Hemoglobin A1c ( - 5.6) % Calculated Osmolality (280-300) Lactic Acid (0.5-2.2) mmol/L Calcium (8.6-10.8) mg/dL Total Bilirubin (0.2-1.2) mg/dL AST (5-34) Units/L ALT (0-55) Units/L Alkaline Phosphatase (38-126) Units/L Troponin I (0-0.03) ng/mL Serum Total Protein (6.0-8.3) g/dL Albumin (3.5-5.0) g/dL Globulin (2.4-3.5) g/dL Albumin/Globulin Ratio (1.1-2.2) Lipase (8-78) Units/L Beta-Hydroxybutyric Acd (0.02-0.27) mmol/L Urine Color Yellow (Yellow) Urine Clarity Turbid A (Clear) Urine pH 6.5 (5.0-8.0) pH Units Ur Specific [place] 1.016 (1.010-1.025) Urine Protein 100 H (Neg-Trace) mg/dL Urine Glucose (UA) Normal (Normal) mg/dL Urine Ketones Trace H (Negative) mg/dL Urine Blood Large H (Negative) Urine Nitrite Negative (Negative) Urine Bilirubin Negative (Negative) Urine Urobilinogen Normal (Normal) mg/dL Ur Leukocyte Esterase Large H (Negative) Urine Microscopic RBC 3-5 H (0-3) per hpf Urine Microscopic WBC TNTC H (0-3) per hpf Ur Squamous Epith Cells Many H (None-Few) per lpf Urine Bacteria Few (None-Few) per hpf Ur Culture Indicated? YES A (NO) Urine Opiates Screen Positive H (Xbeqlt=912) ng/mL Ur Barbiturates Screen Negative (Pkprwj=783) ng/mL Ur Phencyclidine Scrn Negative (Cutoff=25) ng/mL Ur Amphetamines Screen Negative (Xcyanc=9413) ng/mL U Benzodiazepines Scrn Negative (Uzqzxe=522) ng/mL Urine Cocaine Screen Negative (Cutoff= 300) ng/mL U Marijuana (THC) Screen Positive H (Cutoff = 50) ng/mL 09/04/17 09/04/17 09/04/17 Range/Units 18:44 18:44 18:44 WBC (4.3-11.1) K/mcL RBC (4.19-5.50) M/mcL Hgb (12.9-16.9) g/dL Hct (37.5-50.1) % MCV (83.0-100.0) fL MCH (28.0-33.3) pg MCHC (31.6-35.5) g/dL RDW (11.5-14.5) % Plt Count (140-400) K/mcL MPV (9.4-12.4) fL Immature Gran % (0-4) % Seg Neutrophils % % Lymphocytes % % Monocytes % % Eosinophils % % Basophils % % Neutrophils # (1.6-8.9) K/mcL Lymphocytes # (0.6-4.6) K/mcL Monocytes # (0.0-1.3) K/mcL Eosinophils # (0.0-0.6) K/mcL Basophils # (0.0-0.2) K/mcL VBG pH (7.32-7.42) pH Units VBG pCO2 (41-51) mmHg VBG pO2 (25-50) mmHg VBG HCO3 (21-27) mEq/L Sodium 132 L (136-145) mEq/L Potassium 2.5 L* (3.5-4.5) mEq/L Chloride 85 L (98-109) mEq/L Carbon Dioxide 36 H (19-29) mEq/L BUN 23 (8-26) mg/dL Creatinine 1.45 H (0.72-1.25) mg/dL Est GFR ( Amer) > 60 (> 60) Est GFR (Non-Af Amer) 56 L (> 60) BUN/Creatinine Ratio 16 (6-26) Glucose 93 (70-99) mg/dL Est Mean Plasma Glucose 226 mg/dl Hemoglobin A1c 9.5 H ( - 5.6) % Calculated Osmolality 277 L (280-300) Lactic Acid (0.5-2.2) mmol/L Calcium 9.4 (8.6-10.8) mg/dL Total Bilirubin 0.5 (0.2-1.2) mg/dL AST 21 (5-34) Units/L ALT 16 (0-55) Units/L Alkaline Phosphatase 106 (38-126) Units/L Troponin I 0.04 H* (0-0.03) ng/mL Serum Total Protein 7.3 (6.0-8.3) g/dL Albumin 3.7 (3.5-5.0) g/dL Globulin 3.6 H (2.4-3.5) g/dL Albumin/Globulin Ratio 1.0 L (1.1-2.2) Lipase 66 (8-78) Units/L Beta-Hydroxybutyric Acd 1.43 H (0.02-0.27) mmol/L Urine Color (Yellow) Urine Clarity (Clear) Urine pH (5.0-8.0) pH Units Ur Specific [place] (1.010-1.025) Urine Protein (Neg-Trace) mg/dL Urine Glucose (UA) (Normal) mg/dL Urine Ketones (Negative) mg/dL Urine Blood (Negative) Urine Nitrite (Negative) Urine Bilirubin (Negative) Urine Urobilinogen (Normal) mg/dL Ur Leukocyte Esterase (Negative) Urine Microscopic RBC (0-3) per hpf Urine Microscopic WBC (0-3) per hpf Ur Squamous Epith Cells (None-Few) per lpf Urine Bacteria (None-Few) per hpf Ur Culture Indicated? (NO) Urine Opiates Screen (Sbtyxr=547) ng/mL Ur Barbiturates Screen (Clqkjd=519) ng/mL Ur Phencyclidine Scrn (Cutoff=25) ng/mL Ur Amphetamines Screen (Acwest=4867) ng/mL U Benzodiazepines Scrn (Bsvaqr=496) ng/mL Urine Cocaine Screen (Cutoff= 300) ng/mL U Marijuana (THC) Screen (Cutoff = 50) ng/mL 09/04/17 09/04/17 Range/Units 18:53 19:00 WBC (4.3-11.1) K/mcL RBC (4.19-5.50) M/mcL Hgb (12.9-16.9) g/dL Hct (37.5-50.1) % MCV (83.0-100.0) fL MCH (28.0-33.3) pg MCHC (31.6-35.5) g/dL RDW (11.5-14.5) % Plt Count (140-400) K/mcL MPV (9.4-12.4) fL Immature Gran % (0-4) % Seg Neutrophils % % Lymphocytes % % Monocytes % % Eosinophils % % Basophils % % Neutrophils # (1.6-8.9) K/mcL Lymphocytes # (0.6-4.6) K/mcL Monocytes # (0.0-1.3) K/mcL Eosinophils # (0.0-0.6) K/mcL Basophils # (0.0-0.2) K/mcL VBG pH 7.48 H (7.32-7.42) pH Units VBG pCO2 50 (41-51) mmHg VBG pO2 24 L (25-50) mmHg VBG HCO3 38 H (21-27) mEq/L Sodium (136-145) mEq/L Potassium (3.5-4.5) mEq/L Chloride (98-109) mEq/L Carbon Dioxide (19-29) mEq/L BUN (8-26) mg/dL Creatinine (0.72-1.25) mg/dL Est GFR ( Amer) (> 60) Est GFR (Non-Af Amer) (> 60) BUN/Creatinine Ratio (6-26) Glucose (70-99) mg/dL Est Mean Plasma Glucose mg/dl Hemoglobin A1c ( - 5.6) % Calculated Osmolality (280-300) Lactic Acid 1.4 (0.5-2.2) mmol/L Calcium (8.6-10.8) mg/dL Total Bilirubin (0.2-1.2) mg/dL AST (5-34) Units/L ALT (0-55) Units/L Alkaline Phosphatase (38-126) Units/L Troponin I (0-0.03) ng/mL Serum Total Protein (6.0-8.3) g/dL Albumin (3.5-5.0) g/dL Globulin (2.4-3.5) g/dL Albumin/Globulin Ratio (1.1-2.2) Lipase (8-78) Units/L Beta-Hydroxybutyric Acd (0.02-0.27) mmol/L Urine Color (Yellow) Urine Clarity (Clear) Urine pH (5.0-8.0) pH Units Ur Specific [place] (1.010-1.025) Urine Protein (Neg-Trace) mg/dL Urine Glucose (UA) (Normal) mg/dL Urine Ketones (Negative) mg/dL Urine Blood (Negative) Urine Nitrite (Negative) Urine Bilirubin (Negative) Urine Urobilinogen (Normal) mg/dL Ur Leukocyte Esterase (Negative) Urine Microscopic RBC (0-3) per hpf Urine Microscopic WBC (0-3) per hpf Ur Squamous Epith Cells (None-Few) per lpf Urine Bacteria (None-Few) per hpf Ur Culture Indicated? (NO) Urine Opiates Screen (Ufbvxc=108) ng/mL Ur Barbiturates Screen (Asdftb=494) ng/mL Ur Phencyclidine Scrn (Cutoff=25) ng/mL Ur Amphetamines Screen (Uapmnu=4084) ng/mL U Benzodiazepines Scrn (Xmzmkx=843) ng/mL Urine Cocaine Screen (Cutoff= 300) ng/mL U Marijuana (THC) Screen (Cutoff = 50) ng/mL - Radiology Data Radiology results reviewed: Yes I reviewed the patient's radiology results. - EKG Data EKG attestation: Yes I reviewed and interpreted this EKG. EKG results narrative: EKG shows sinus rhythm with a ventricular rate of 93. OR 117. QRS 98. QTC 422. Patient has no significant ST elevations or depressions. Patient does not have any significant changes from previous of 04/11/16.
[2017-09-04 19:06] LABS: Beta-Hydroxybutyric Acid 1.43 mmol/L (0.02-0.27)
[2017-09-04 19:10] LABS: Alanine Aminotransferase 16 Units/L (0-55); Albumin 3.7 g/dL (3.5-5.0); Alkaline Phosphatase 106 Units/L (38-126); Aspartate Amino Transferase 21 Units/L (5-34); BUN/Creatinine Ratio 16 (6-26); Bilirubin,Total 0.5 mg/dL (0.2-1.2); Blood Urea Nitrogen 23 mg/dL (8-26); Calcium 9.4 mg/dL (8.6-10.8); Carbon Dioxide 36 mEq/L (19-29); Chloride 85 mEq/L (98-109); Globulin 3.6 g/dL (2.4-3.5); Glucose 93 mg/dL (70-99); Lipase 66 Units/L (8-78); Osmolality,Calculated 277 (280-300); Sodium 132 mEq/L (136-145); Total Protein 7.3 g/dL (6.0-8.3); eGFR For African Americans > 60 (> 60); eGFR For Non-African Americans 56 (> 60)
[2017-09-04 19:13] LABS: Potassium 2.5 mEq/L (3.5-4.5)
[2017-09-04] MEDS ORDERED: Potassium Chloride 20 MEQ, Lidocaine 1% 2 ML in D5% in Water 250 ML IVPB ONE (20:02)
[2017-09-04] MEDS ORDERED: Piperacillin/Tazobactam 3.375 GM in D5% in Water 50 ML IVPB ONE (20:02)
[2017-09-04] MEDS ORDERED: Fluconazole 100 MG TABLET PO STA (20:03)
[2017-09-04] MEDS ORDERED: Vancomycin 1,250 MG in D5% in Water 250 ML IVPB STA (20:12)
[2017-09-04 20:28] LABS: Amphetamine Screen,Urine Negative ng/mL (Cutoff=1000); Barbiturate Screen,Urine Negative ng/mL (Cutoff=200); Benzodiazepines Screen,Urine Negative ng/mL (Cutoff=200); Cannabinoid Screen,Urine Positive ng/mL (Cutoff = 50); Cocaine Screen,Urine Negative ng/mL (Cutoff= 300); Opiate Screen,Urine Positive ng/mL (Cutoff=300); Phencyclidine Screen,Urine Negative ng/mL (Cutoff=25)
[2017-09-04] MEDS ORDERED: *HR* Dextrose 50 % in Water (Syg) 50 ML SYRINGE IVP PRN (20:56)
[2017-09-04] MEDS ORDERED: Naloxone 0.4 MG/ML INJ IVP PRN (20:56)
[2017-09-04] MEDS ORDERED: Acetaminophen 325 MG TABLET PO PRN (20:56)
[2017-09-04] MEDS ORDERED: Dextrose Gel 15 GM PO PRN ×2 (20:56)
[2017-09-04] MEDS ORDERED: D5% in Water 1,000 ML IVC PRN (20:56)
[2017-09-04] MEDS ORDERED: Ondansetron 4 MG/2 ML VIAL IVP PRN (20:56)
[2017-09-04] MEDS ORDERED: Vancomycin 1,000 MG in D5% in Water 250 ML IVPB SCH (21:00)
[2017-09-04] MEDS ORDERED: 0.9 % Sodium Chloride 1,000 ML IVC SCH (21:00)
[2017-09-04] MEDS ORDERED: hydrOXYzine pamoate 25 MG CAPSULE PO PRN (21:02)
--- NOTE | 2017-09-04 21:06 | Internal Med History&Physical ---
<SilvanolisandroCamilo blunt - Last Filed: 09/04/17 21:21> Date of Encounter: 09/04/17 Time of Encounter: 21:04 Assessment and Plan (1) Renal abscess, left Current visit: Yes Status: Suspected - Suspected renal abscess on left kidney as demonstrated on CT scan in ED. - Other possible etiology of hematoma secondary to lithotripsy - Bilateral ureteral stent placement by Dr. Lin in June. - UA suggestive of UTI. - Urology consulted in ED. Reccommend coverage for staph/strep and possible IR intervention if no improvement on IV Abx. - Will give Vanc and zosyn. Zofran for nausea. - Urine and blood cultures pending. Afebrile, no WBC count. (2) Hypokalemia Current visit: Yes Status: Acute - K of 2.5 in ED. - Pt reports severe nausea and vomiting. Likely etiology - Received 20 mEq in ED - Will give additional 40. Zofran for nausea. IVF for 1 additional Liter. (3) Hepatitis C Current visit: Yes Status: Chronic - Secondary to IVDU - Pt reports drug free for the past 2.5 years - UDS found opiods which is consistent with home norco use. Also found marijuana. Qualifiers: Viral hepatitis chronicity: chronic Hepatic coma status: without hepatic coma Qualified Code(s): B18.2 - Chronic viral hepatitis C (4) Type 1 diabetes mellitus Current visit: Yes Status: Chronic - Pt reports decent control of blood sugar. - BS well controlled in ED. reports oral intake. - A1c of 12.7% in June. - Will restart basal insulin and SSI - Diabetic diet. Qualifiers: Diabetes mellitus complication status: without complication Qualified Code( s): E10.9 - Type 1 diabetes mellitus without complications (5) Urinary tract infection Current visit: Yes Status: Acute - UA showing possible UTI. - Will cover with Vanc and Zosyn for abscess as above. - Urine and blood culture pending. Qualifiers: Urinary tract infection type: acute cystitis Hematuria presence: with hematuria Qualified Code(s): N30.01 - Acute cystitis with hematuria (6) Substance abuse Current visit: Yes Status: Chronic - Pt reports no heroin use in past 3.5 years - Complications of Hep C. - UDS shows opiods and marijuana. - Pt reports no cigarettes since onset of symptoms 5 days ago with intention to quit. - Pt encouraged to continue progress to quitting tobacco use as well as other substances. (7) DVT prophylaxis Current visit: Yes Status: Acute - Heparin 5000 units q12 Internal Medicine - H&P: HPI Chief complaint: back pain Admitted From: Emergency Dept Plans for Post Hospital Care: Home History of present illness: Mr. Ortega is a 36 year old male with past medical history of recurrent nephrolithiasis requiring bilateral ureteral stents, type 1 diabetes, hepatitis C, IV drug use most recently 3.5 years ago presents to emergency department with complaint of bilateral back pain beginning Wednesday morning. He states the pain was sudden onset, has been constant, and has been gradually getting worse. He states this pain is very similar to when he had kidney stones. He also admits to symptoms of cold chills, nausea with vomiting as much as 15 episodes of emesis per day. He has had a difficult time keeping food down. He also admits to some occasional shortness of breath as well as chest pressure. He denies any symptoms of fevers, dysuria, urinary frequency, hematuria, change in bowel movements, abdominal pain, recent trauma. In the emergency department, vital signs were significant for tachycardia at 111. Lab results were significant for anabolic alkalosis, troponin of 0.04, hydroxybutyric acid of 1.47, hypokalemia at 2.5, elevated creatinine of 1.45. Urinalysis was suggestive of infection and urine drug screen was positive for opiates and marijuana. Abdominal CT was performed and showed a possible left renal abscess or hematoma as well as mild bladder thickening. Urology was consulted in the emergency permanent and suggested a course of IV antibiotics including vancomycin as abscess is most likely staph or strep given the location in the periphery. Past Med Surg Social Fam HX - Past Medical History Medical history: arthritis, diabetes, hepatitis, kidney stones, other (IV drug abuse with endocarditis) Psychiatric history: anxiety, depression, other - Past Surgical History Surgical History: no surgical history, other (Bilateral ureteral stenting) - Social History Smoking Status: Current some day smoker Smokeless Tobacco Status: No Alcohol use: occasionally Drug use: marijuana, IV Drug Use - Family History Grandmother Adopted: No Family Member Ethnicity: Non- Living Status: Hx Family Respiratory Disorders: Yes (copd) Hx Family Endocrine Disorder: Yes (diabetes) Internal Medicine - H&P: Meds Docusate [Colace] 100 mg PO BID #60 capsule 07/05/17 [Rx] Gabapentin [Neurontin] 600 mg PO TID 07/05/17 [History] Oxycodone HCl/Acetaminophen [Percocet 5-325 mg Tablet] 1 each PO Q6H PRN #20 tablet 07/05/17 [Rx] Phenazopyridine HCl [Pyridium] 200 mg PO TIDAC #12 tab 07/05/17 [Rx] Quetiapine Fumarate [Seroquel] 50 - 100 mg PO HS 07/05/17 [History] Subcutaneous Insulin Pump [T:Slim] 0 unit MC AD 07/05/17 [History] hydrOXYzine HCl [Hydroxyzine HCl] 25 mg PO BID PRN 07/05/17 [History] Ciprofloxacin HCl [Cipro] 500 mg PO BID #20 tablet 09/01/17 [Rx] HYDROcodone/Acet 5/325 mg [[place] 5-325 mg] 1 tab PO Q4H PRN #14 tab 09/01/17 [Rx ] Ondansetron [Zofran ODT] 8 mg SL Q4HR #10 tab.rapdis 09/01/17 [Rx] 3 Allergy/AdvReac Type Severity Reaction Status Date / Time No Known Allergies Allergy Verified 05/17/16 10:29 All Systems PM: A 10-system review of systems was performed and is negative for pertinent findings except as documented above in the HPI. - Constitutional Constitutional: chills, no excessive sweating, no fatigue, no fever(s), no night sweats, no weakness - Cardiovascular Cardiovascular ROS IM: chest pain (Heaviness), dyspnea, no diaphoresis, no dyspnea on exertion, no edema, no irregular heart rhythm, no lightheadedness, no palpitations, no syncope - Respiratory Respiratory: dyspnea, no cough, no hemoptysis, no dyspnea on exertion, no excessive phlegm production, no pain with cough - Gastrointestinal Gastrointestinal: nausea, vomiting, no abdominal pain, no change in bowel habits , no constipation, no diarrhea, no hematochezia, no melena - Genitourinary Genitourinary ROS male: flank pain, urinary hesitancy, no dysuria, no urinary frequency, no urinary urgency - Musculoskeletal Musculoskeletal ROS IM: no numbness, no tingling - Neurological Neurological ROS: no confusion, no dizziness, no numbness, no tingling, no weakness - Constitutional Vitals: Temp Pulse Resp BP Pulse Ox 98.2 F 111 18 95/56 99 09/04/17 17:56 09/04/17 17:56 09/04/17 17:56 09/04/17 17:56 09/04/17 17:56 Exam: Gen.: Vitals noted. No acute distress. AAOx3 HEENT: PERRL, oropharynx clear, Normocephalic, atraumatic. No dentition, moist mucous membranes Cardiac: RRR, no obvious murmur, +S1/S2 Pulmonary: CTA bilaterally, no wheezes, rales or rhonchi, equal chest expansion Abdomen: soft, mildly tender diffusely, BS noted, no guarding Back: Bilateral CVA tenderness, more prominent on left MSK: ROM intact, no joint swelling noted Extremities: no BLE edema, nontender calf, no cyanosis or clubbing Neuro: A&Ox3, moves all extremities, no focal deficits Psych: Appropriate mood and behavior Internal Med - H&P Results - Labs CBC & Chem 7: 09/04/17 18:44 09/04/17 18:44 <Erma Guzmán - Last Filed: 09/04/17 21:49> Date of Encounter: 09/04/17 Internal Medicine - H&P: HPI History of present illness: Mr. Ortega is a 36 year old male All Systems PM: A 10-system review of systems was performed and is negative for pertinent findings except as documented above in the HPI. - Constitutional Vitals: Temp Pulse Resp BP Pulse Ox 98.2 F 111 18 95/56 99 09/04/17 17:56 09/04/17 17:56 09/04/17 17:56 09/04/17 17:56 09/04/17 17:56 Internal Med - H&P Results - Labs CBC & Chem 7: 09/04/17 18:44 09/04/17 18:44 - Attending Attestation I have seen and examined patient independently. I have discussed with resident physician Dr. Swartz regarding the management plan. Agree with that documentation. Patient complaining of bilateral flank pain. No fever. No nausea or vomiting. CAT scan shows no obstructive hydronephrosis. CT suspect a renal abscess. Will treat patient with Vanco and Zosyn for UTI. Follow-up blood and urine culture. Urology consult.
[2017-09-04 21:45] LABS: Hemoglobin A1C 9.5 %
[2017-09-04] MEDS: *HR* OxyCODONE Immed Rel 5 MG TABLET PO PRN (23:19)
[2017-09-04] MEDS: Insulin DETEMIR 100 UNIT/ML X5UNITS SQ SCH (23:23)
[2017-09-04] MEDS: Piperacillin/Tazobactam 3.375 GM in D5% in Water 50 ML IVPB SCH (23:23)
[2017-09-05 04:16] LABS: Basophils % 0.1 %; Eosinophils # 0.1 K/mcL (0.0-0.6); Eosinophils % 1.7 %; Hematocrit 36.3 % (37.5-50.1); Immature Granulocytes % 0.3 % (0-4); Lymphocytes # 2.5 K/mcL (0.6-4.6); Lymphocytes % 32.5 %; Mean Corpuscular HGB Conc 34.2 g/dL (31.6-35.5); Mean Corpuscular Hemoglobin 27.9 pg (28.0-33.3); Mean Corpuscular Volume 81.8 fL (83.0-100.0); Mean Platelet Volume 10.5 fL (9.4-12.4); Monocytes # 0.7 K/mcL (0.0-1.3); Monocytes % 8.9 %; Neutrophils # 4.3 K/mcL (1.6-8.9); Platelet Count 200 K/mcL (140-400); Red Blood Count 4.44 M/mcL (4.19-5.50); Red Cell Distribution Width 14.2 % (11.5-14.5); Segmented Neutrophils % 56.5 %
[2017-09-05 04:17] LABS: Hemoglobin 12.4 g/dL (12.9-16.9)
[2017-09-05 04:27] LABS: BUN/Creatinine Ratio 13 (6-26); Blood Urea Nitrogen 18 mg/dL (8-26); Calcium 8.6 mg/dL (8.6-10.8); Carbon Dioxide 35 mEq/L (19-29); Chloride 92 mEq/L (98-109); Glucose 320 mg/dL (70-99); Osmolality,Calculated 288 (280-300); Sodium 132 mEq/L (136-145); eGFR For African Americans > 60 (> 60); eGFR For Non-African Americans 57 (> 60)
[2017-09-05 04:28] LABS: Potassium 3.7 mEq/L (3.5-4.5)
[2017-09-05] MEDS: *HR* Heparin 5,000 UNIT/ML VIAL SQ SCH ×2 (04:37→16:58)
[2017-09-05] MEDS ORDERED: Insulin LISPRO 300 UNITS/3 ML VIAL SQ SCH ×2 (07:30→21:00)
--- NOTE | 2017-09-05 08:02 | Urology History & Physical ---
Date of Encounter: 09/05/17 Time of Encounter: 08:01 History of Present Illness Chief complaint: flank pain HPI: Mr. Ortega is a 36 year old male known to the urology office. Left ureteroscopy , laser lithotripsy, and stent placement in june. pt still has stent in place as he failed to followup. presents to ER with acute illness, fever, malaise, flank pain. Past Med Surg Social Fam HX - Past Medical History Medical history: arthritis, diabetes, hepatitis, kidney stones Psychiatric history: anxiety, depression, other - Past Surgical History Surgical History: no surgical history, other - Social History Smoking Status: Current some day smoker Smokeless Tobacco Status: No Alcohol use: occasionally Drug use: marijuana, IV Drug Use - Family History Grandmother Adopted: No Family Member Ethnicity: Non- Living Status: Hx Family Respiratory Disorders: Yes (copd) Hx Family Endocrine Disorder: Yes (diabetes) Medications and Allergies Docusate [Colace] 100 mg PO BID #60 capsule 07/05/17 [Rx] Gabapentin [Neurontin] 600 mg PO TID 07/05/17 [History] Oxycodone HCl/Acetaminophen [Percocet 5-325 mg Tablet] 1 each PO Q6H PRN #20 tablet 07/05/17 [Rx] Phenazopyridine HCl [Pyridium] 200 mg PO TIDAC #12 tab 07/05/17 [Rx] Quetiapine Fumarate [Seroquel] 50 - 100 mg PO HS 07/05/17 [History] Subcutaneous Insulin Pump [T:Slim] 0 unit MC AD 07/05/17 [History] hydrOXYzine HCl [Hydroxyzine HCl] 25 mg PO BID PRN 07/05/17 [History] Ciprofloxacin HCl [Cipro] 500 mg PO BID #20 tablet 09/01/17 [Rx] HYDROcodone/Acet 5/325 mg [[place] 5-325 mg] 1 tab PO Q4H PRN #14 tab 09/01/17 [Rx ] Ondansetron [Zofran ODT] 8 mg SL Q4HR #10 tab.rapdis 09/01/17 [Rx] 3 Allergy/AdvReac Type Severity Reaction Status Date / Time No Known Allergies Allergy Verified 05/17/16 10:29 Exam Initial Vital Signs Temp Pulse Resp BP Pulse Ox 98.2 F 111 18 95/56 99 09/04/17 17:56 09/04/17 17:56 09/04/17 17:56 09/04/17 17:56 09/04/17 17:56 Urology Results - Labs 09/05/17 04:00 09/05/17 04:00 Abnormal lab results Hgb 12.4 g/dL (12.9-16.9) L D 09/05/17 04:00 Hct 36.3 % (37.5-50.1) L 09/05/17 04:00 MCV 81.8 fL (83.0-100.0) L 09/05/17 04:00 MCH 27.9 pg (28.0-33.3) L 09/05/17 04:00 VBG pH 7.48 pH Units (7.32-7.42) H 09/04/17 18:53 VBG pO2 24 mmHg (25-50) L 09/04/17 18:53 VBG HCO3 38 mEq/L (21-27) H 09/04/17 18:53 Sodium 132 mEq/L (136-145) L 09/05/17 04:00 Chloride 92 mEq/L (98-109) L 09/05/17 04:00 Carbon Dioxide 35 mEq/L (19-29) H 09/05/17 04:00 Creatinine 1.43 mg/dL (0.72-1.25) H 09/05/17 04:00 Est GFR (Non-Af Amer) 57 (> 60) L 09/05/17 04:00 Glucose 320 mg/dL (70-99) H 09/05/17 04:00 POC Glucose 170 (58-89) H 09/04/17 22:08 Hemoglobin A1c 9.5 % (-5.6) H 09/04/17 18:44 Troponin I 0.04 ng/mL (0-0.03) H* 09/04/17 18:44 Globulin 3.6 g/dL (2.4-3.5) H 09/04/17 18:44 Albumin/Globulin Ratio 1.0 (1.1-2.2) L 09/04/17 18:44 Beta-Hydroxybutyric Acd 1.43 mmol/L (0.02-0.27) H 09/04/17 18:44 Urine Clarity Turbid (Clear) A 09/04/17 18:07 Urine Protein 100 mg/dL (Neg-Trace) H 09/04/17 18:07 Urine Ketones Trace mg/dL (Negative) H 09/04/17 18:07 Urine Blood Large (Negative) H 09/04/17 18:07 Ur Leukocyte Esterase Large (Negative) H 09/04/17 18:07 Urine Microscopic RBC 3-5 per hpf (0-3) H 09/04/17 18:07 Urine Microscopic WBC TNTC per hpf (0-3) H 09/04/17 18:07 Ur Squamous Epith Cells Many per lpf (None-Few) H 09/04/17 18:07 Ur Culture Indicated? YES (NO) A 09/04/17 18:07 Urine Opiates Screen Positive ng/mL (Ikmske=888) H 09/04/17 18:07 U Marijuana (THC) Screen Positive ng/mL (Cutoff = 50) H 09/04/17 18:07 Diabetes panel 09/05/17 Range/Units 04:00 Sodium 132 L (136-145) mEq/L Potassium 3.7 D (3.5-4.5) mEq/L Chloride 92 L (98-109) mEq/L Carbon Dioxide 35 H (19-29) mEq/L BUN 18 (8-26) mg/dL Creatinine 1.43 H (0.72-1.25) mg/dL Glucose 320 H (70-99) mg/dL Calcium 8.6 (8.6-10.8) mg/dL Calcium panel 09/05/17 Range/Units 04:00 Calcium 8.6 (8.6-10.8) mg/dL Pituitary panel 09/05/17 Range/Units 04:00 Sodium 132 L (136-145) mEq/L Potassium 3.7 D (3.5-4.5) mEq/L Chloride 92 L (98-109) mEq/L Carbon Dioxide 35 H (19-29) mEq/L BUN 18 (8-26) mg/dL Creatinine 1.43 H (0.72-1.25) mg/dL Glucose 320 H (70-99) mg/dL Calcium 8.6 (8.6-10.8) mg/dL Adrenal panel 09/05/17 Range/Units 04:00 Sodium 132 L (136-145) mEq/L Potassium 3.7 D (3.5-4.5) mEq/L Chloride 92 L (98-109) mEq/L Carbon Dioxide 35 H (19-29) mEq/L BUN 18 (8-26) mg/dL Creatinine 1.43 H (0.72-1.25) mg/dL Glucose 320 H (70-99) mg/dL Calcium 8.6 (8.6-10.8) mg/dL All other labs normal.
--- NOTE | 2017-09-05 08:12 | Urology - Consult Note ---
Date of Encounter: 09/05/17 Time of Encounter: 08:11 - Assessment and Plan (1) Renal abscess Current Visit: Yes Status: Acute Assessment and plan: I reviewed the CT scan images. The patient has a retained stent for the last 2 months which accounts for his ongoing symptoms during this time period (patient was unaware of the stent). More concerning is the gas seen within the collecting system consistent with emphysematous pyelonephritis and a subcapsular fluid collection that could be consistent with a renal abscess. Other potential etiologies for these findings include air from instrumentation, renal hematoma or urinoma. Patient's vital signs are stable this morning and his symptoms have improved. Continue broad-spectrum antibiotics with fungal coverage. Await urine and blood cultures. He will require removal of the ureteral stent in the near future but I do not feel that it is appropriate to remove today based on his acute illness in the last 12 hours and dramatic improvement overnight. Urology will continue to follow the patient on a daily basis. We will likely repeat CT scan in a few days to monitor for improvement which will also help determine the appropriate timeframe for stent removal. Urology CN:[facility] Consult date: 09/05/17 Reason for consult Urology: Other History of present illness: Mr. Ortega is a 36 year old male known to the urology office. Left ureteroscopy , laser lithotripsy, and stent placement in june. pt still has stent in place as he failed to followup. States he was confused about the stent because he thought there was supposed to be a string on the stent. presents to ER with acute illness, malaise, flank pain. CT scan with retained stent, gas in collecting system, subcapsular fluid collection. Past Med Surg Social Fam HX - Past Medical History Medical history: arthritis, diabetes, hepatitis, kidney stones Psychiatric history: anxiety, depression, other - Past Surgical History Surgical History: no surgical history, other - Social History Smoking Status: Current some day smoker Smokeless Tobacco Status: No Alcohol use: occasionally Drug use: marijuana, IV Drug Use - Family History Grandmother Adopted: No Family Member Ethnicity: Non- Living Status: Hx Family Respiratory Disorders: Yes (copd) Hx Family Endocrine Disorder: Yes (diabetes) Medications and Allergies Docusate [Colace] 100 mg PO BID #60 capsule 07/05/17 [Rx] Gabapentin [Neurontin] 600 mg PO TID 07/05/17 [History] Oxycodone HCl/Acetaminophen [Percocet 5-325 mg Tablet] 1 each PO Q6H PRN #20 tablet 07/05/17 [Rx] Phenazopyridine HCl [Pyridium] 200 mg PO TIDAC #12 tab 07/05/17 [Rx] Quetiapine Fumarate [Seroquel] 50 - 100 mg PO HS 07/05/17 [History] Subcutaneous Insulin Pump [T:Slim] 0 unit MC AD 07/05/17 [History] hydrOXYzine HCl [Hydroxyzine HCl] 25 mg PO BID PRN 07/05/17 [History] Ciprofloxacin HCl [Cipro] 500 mg PO BID #20 tablet 09/01/17 [Rx] HYDROcodone/Acet 5/325 mg [[place] 5-325 mg] 1 tab PO Q4H PRN #14 tab 09/01/17 [Rx ] Ondansetron [Zofran ODT] 8 mg SL Q4HR #10 tab.rapdis 09/01/17 [Rx] 3 Allergy/AdvReac Type Severity Reaction Status Date / Time No Known Allergies Allergy Verified 05/17/16 10:29 Review of Systems - Constitutional fatigue, malaise, weakness - EENT Nose, mouth and throat: no dizziness - Cardiovascular no chest pain - Respiratory no cough - Gastrointestinal abdominal pain - Genitourinary flank pain - Musculoskeletal back pain - Integumentary no erythema - Neurological no confusion - Psychiatric no anxiety - Hematologic/Lymphatic as per HPI, no easy bleeding - Allergic/Immunologic no throat swelling Exam Initial Vital Signs Temp Pulse Resp BP Pulse Ox 98.2 F 111 18 95/56 99 09/04/17 17:56 09/04/17 17:56 09/04/17 17:56 09/04/17 17:56 09/04/17 17:56 - General physical appearance Present: no distress - Eyes Present: PERRL - ENT Present: normal nares - Neck Present: no masses - Respiratory Present: normal respiratory effort - Cardiovascular Cardiovascular exam IM: RRR - Abdomen Abdomen: Present: soft - Integumentary Present: no rash, no growths - Neurologic Present: normal coordination. Absent: disoriented, confused Urology Results - Labs 09/05/17 04:00 09/05/17 04:00 Abnormal lab results Hgb 12.4 g/dL (12.9-16.9) L D 09/05/17 04:00 Hct 36.3 % (37.5-50.1) L 09/05/17 04:00 MCV 81.8 fL (83.0-100.0) L 09/05/17 04:00 MCH 27.9 pg (28.0-33.3) L 09/05/17 04:00 VBG pH 7.48 pH Units (7.32-7.42) H 09/04/17 18:53 VBG pO2 24 mmHg (25-50) L 09/04/17 18:53 VBG HCO3 38 mEq/L (21-27) H 09/04/17 18:53 Sodium 132 mEq/L (136-145) L 09/05/17 04:00 Chloride 92 mEq/L (98-109) L 09/05/17 04:00 Carbon Dioxide 35 mEq/L (19-29) H 09/05/17 04:00 Creatinine 1.43 mg/dL (0.72-1.25) H 09/05/17 04:00 Est GFR (Non-Af Amer) 57 (> 60) L 09/05/17 04:00 Glucose 320 mg/dL (70-99) H 09/05/17 04:00 POC Glucose 170 (58-89) H 09/04/17 22:08 Hemoglobin A1c 9.5 % (-5.6) H 09/04/17 18:44 Troponin I 0.04 ng/mL (0-0.03) H* 09/04/17 18:44 Globulin 3.6 g/dL (2.4-3.5) H 09/04/17 18:44 Albumin/Globulin Ratio 1.0 (1.1-2.2) L 09/04/17 18:44 Beta-Hydroxybutyric Acd 1.43 mmol/L (0.02-0.27) H 09/04/17 18:44 Urine Clarity Turbid (Clear) A 09/04/17 18:07 Urine Protein 100 mg/dL (Neg-Trace) H 09/04/17 18:07 Urine Ketones Trace mg/dL (Negative) H 09/04/17 18:07 Urine Blood Large (Negative) H 09/04/17 18:07 Ur Leukocyte Esterase Large (Negative) H 09/04/17 18:07 Urine Microscopic RBC 3-5 per hpf (0-3) H 09/04/17 18:07 Urine Microscopic WBC TNTC per hpf (0-3) H 09/04/17 18:07 Ur Squamous Epith Cells Many per lpf (None-Few) H 09/04/17 18:07 Ur Culture Indicated? YES (NO) A 09/04/17 18:07 Urine Opiates Screen Positive ng/mL (Hxporh=568) H 09/04/17 18:07 U Marijuana (THC) Screen Positive ng/mL (Cutoff = 50) H 09/04/17 18:07 Diabetes panel 09/05/17 Range/Units 04:00 Sodium 132 L (136-145) mEq/L Potassium 3.7 D (3.5-4.5) mEq/L Chloride 92 L (98-109) mEq/L Carbon Dioxide 35 H (19-29) mEq/L BUN 18 (8-26) mg/dL Creatinine 1.43 H (0.72-1.25) mg/dL Glucose 320 H (70-99) mg/dL Calcium 8.6 (8.6-10.8) mg/dL Calcium panel 09/05/17 Range/Units 04:00 Calcium 8.6 (8.6-10.8) mg/dL Pituitary panel 09/05/17 Range/Units 04:00 Sodium 132 L (136-145) mEq/L Potassium 3.7 D (3.5-4.5) mEq/L Chloride 92 L (98-109) mEq/L Carbon Dioxide 35 H (19-29) mEq/L BUN 18 (8-26) mg/dL Creatinine 1.43 H (0.72-1.25) mg/dL Glucose 320 H (70-99) mg/dL Calcium 8.6 (8.6-10.8) mg/dL Adrenal panel 09/05/17 Range/Units 04:00 Sodium 132 L (136-145) mEq/L Potassium 3.7 D (3.5-4.5) mEq/L Chloride 92 L (98-109) mEq/L Carbon Dioxide 35 H (19-29) mEq/L BUN 18 (8-26) mg/dL Creatinine 1.43 H (0.72-1.25) mg/dL Glucose 320 H (70-99) mg/dL Calcium 8.6 (8.6-10.8) mg/dL All other labs normal. Consult Discharge Plan - Plan Referrals: Michelle Amin, G[facility] [Primary Care Provider] -
[2017-09-05] MEDS: Gabapentin 300 MG CAPSULE PO SCH ×3 (09:31→21:18)
[2017-09-05] MEDS: *HR* OxyCODONE Immed Rel 5 MG TABLET PO PRN ×2 (09:32→21:19)
[2017-09-05] MEDS: Vancomycin 1,000 MG in D5% in Water 250 ML IVPB SCH ×2 (09:43→21:37)
[2017-09-05] MEDS: Fluconazole 200 MG/100 ML 200 MG/100 ML BAG IVPB SCH (09:47)
--- NOTE | 2017-09-05 10:35 | Internal Med Progress Note ---
Date of Encounter: 09/05/17 Time of Encounter: 09:40 - Assessment and plan (1) Renal abscess, left Current Visit: Yes Status: Suspected Assessment and plan: Continue current antibiotics. Urology has evaluated patient. Recommend starting antifungal in addition to current antibiotics. We will also consult interventional radiology to attempt possible drainage of the abscess tomorrow. Await culture results. High risk for complications. (2) DVT prophylaxis Current Visit: Yes Status: Acute Assessment and plan: Continue subcutaneous heparin (3) Hypokalemia Current Visit: Yes Status: Acute Assessment and plan: Improved with repletion. We will continue to monitor and replace as needed. (4) Type 1 diabetes mellitus Current Visit: Yes Status: Chronic Assessment and plan: Uncontrolled. Blood sugar per lab was 320 this morning. We will increase insulin regimen. Continue to monitor blood sugars. Qualifiers: Diabetes mellitus complication status: with hyperglycemia Qualified Code(s) : E10.65 - Type 1 diabetes mellitus with hyperglycemia (5) Urinary tract infection Current Visit: Yes Status: Acute Assessment and plan: On antibiotics. Await culture results Qualifiers: Urinary tract infection type: acute cystitis Hematuria presence: with hematuria Qualified Code(s): N30.01 - Acute cystitis with hematuria - Subjective Interval history: Patient is feeling better this morning although he continues to have pain in his back. No fever reported overnight. No dysuria at this time. No nausea or vomiting. - Constitutional Vitals: Temp Pulse Resp BP Pulse Ox 97.9 F 68 14 104/70 97 09/05/17 04:34 09/05/17 04:34 09/05/17 04:34 09/05/17 04:34 09/05/17 04:34 General appearance: Present: cooperative, mild distress, A&O X 3, answers questions appropriately - Respiratory Respiratory exam: Present: CTAB. Absent: accessory muscle use, rales, rhonchi, wheezes - Cardiovascular Cardiovascular exam: Present: RRR, +S1, +S2. Absent: diastolic murmur, gallop, rubs, systolic murmur - GI/Abdominal GI/Abdominal exam: Present: normal bowel sounds, soft, no peritoneal signs. Absent: distended, tenderness - Extremities Exam Extremities exam: Present: warm, radial pulses palpable and symmetrical. Absent : calf tenderness, cyanotic, pedal edema - Back Exam Back exam: Present: CVA tenderness (L) - Skin Skin exam: Present: dry, intact Internal Medicine: Result - Labs CBC & Chem 7: 09/05/17 04:00 09/05/17 04:00 Labs: Short CBC 09/05/17 Range/Units 04:00 WBC 7.6 (4.3-11.1) K/mcL Hgb 12.4 L D (12.9-16.9) g/dL Hct 36.3 L (37.5-50.1) % Plt Count 200 (140-400) K/mcL Neutrophils # 4.3 (1.6-8.9) K/mcL BMP 09/05/17 04:00 Sodium 132 L Potassium 3.7 D Chloride 92 L Carbon Dioxide 35 H BUN 18 Creatinine 1.43 H Glucose 320 H Calcium 8.6 Consult Discharge Plan - Plan Referrals: Michelle Amin, [employer] SALES REPRESENTATIVE [Primary Care Provider] -
[2017-09-05] MEDS: Piperacillin/Tazobactam 3.375 GM in D5% in Water 50 ML IVPB SCH ×3 (11:00→23:34)
[2017-09-05] MEDS: Insulin LISPRO 300 UNITS/3 ML VIAL SQ SCH ×2 (12:08→16:57)
--- NOTE | 2017-09-05 20:02 | Electrocardiograph Report ---
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
[2017-09-05] MEDS: Insulin DETEMIR 100 UNIT/ML X5UNITS SQ SCH (21:17)
[2017-09-06] MEDS ORDERED: Insulin LISPRO 300 UNITS/3 ML VIAL SQ ONE (03:41)
[2017-09-06 04:36] LABS: INR 1.1; Prothrombin Time 11.5 Seconds (9.4-12.1)
[2017-09-06 04:44] LABS: BUN/Creatinine Ratio 8 (6-26); Blood Urea Nitrogen 10 mg/dL (8-26); Calcium 8.4 mg/dL (8.6-10.8); Carbon Dioxide 33 mEq/L (19-29); Chloride 99 mEq/L (98-109); Glucose 276 mg/dL (70-99); Osmolality,Calculated 291 (280-300); Potassium 4.1 mEq/L (3.5-4.5); Sodium 136 mEq/L (136-145); eGFR For African Americans > 60 (> 60); eGFR For Non-African Americans > 60 (> 60)
[2017-09-06] MEDS: *HR* Heparin 5,000 UNIT/ML VIAL SQ SCH (06:36)
[2017-09-06] MEDS: Insulin LISPRO 300 UNITS/3 ML VIAL SQ SCH ×2 (08:28→12:05)
[2017-09-06] MEDS: Piperacillin/Tazobactam 3.375 GM in D5% in Water 50 ML IVPB SCH (08:53)
[2017-09-06] MEDS: Gabapentin 300 MG CAPSULE PO SCH ×2 (08:55→15:31)
[2017-09-06] MEDS: Fluconazole 200 MG/100 ML 200 MG/100 ML BAG IVPB SCH (08:55)
[2017-09-06] MEDS ORDERED: Vancomycin 1,500 MG in D5% in Water 250 ML IVPB SCH (09:00)
[2017-09-06] MEDS ORDERED: D5% in Water 1,000 ML IVC SCH (09:45)
[2017-09-06] MEDS ORDERED: *HR* Midazolam HCl 2 MG/2 ML VIAL ONE (10:48)
[2017-09-06] MEDS ORDERED: *HR* FentaNYL (PF) 100 MCG/2 ML VIAL ONE (10:49)
[2017-09-06] MEDS ORDERED: 0.9 % Sodium Chloride 500 ML ONE (10:50)
--- NOTE | 2017-09-06 14:53 | Discharge Summary ---
Date of Encounter: 09/06/17 Time of Encounter: 14:44 - Discharge Diagnosis (1) Renal abscess, left Priority: Primary Status: Suspected (2) Hypokalemia Priority: Secondary Status: Acute (3) Type 1 diabetes mellitus Priority: Secondary Status: Chronic Qualifiers: Diabetes mellitus complication status: with hyperglycemia Qualified Code(s) : E10.65 - Type 1 diabetes mellitus with hyperglycemia (4) Urinary tract infection Priority: Secondary Status: Acute Qualifiers: Urinary tract infection type: acute cystitis Hematuria presence: with hematuria Qualified Code(s): N30.01 - Acute cystitis with hematuria (5) DVT prophylaxis Priority: Secondary Status: Acute - Discharge Medications Prescriptions: Amoxicillin/Clavulanate [Augmentin] 875 mg PO BIDWM #28 tablet Fluconazole [Diflucan] 400 mg PO DAILY #28 tab Lactobacillus [Culturelle] 1 each PO BID #30 cap.sprink Home Medications: Gabapentin [Neurontin] 600 mg PO TID 07/05/17 [History] Quetiapine Fumarate [Seroquel] 50 - 100 mg PO HS 07/05/17 [History] Subcutaneous Insulin Pump [T:Slim] 0 unit MC AD 07/05/17 [History] Amoxicillin/Clavulanate [Augmentin] 875 mg PO BIDWM #28 tablet 09/06/17 [Rx] Fluconazole [Diflucan] 400 mg PO DAILY #28 tab 09/06/17 [Rx] Lactobacillus [Culturelle] 1 each PO BID #30 cap.sprink 09/06/17 [Rx] Allergies/Adverse Reactions: 3 Allergy/AdvReac Type Severity Reaction Status Date / Time No Known Allergies Allergy Verified 09/06/17 10:45 Procedures/tests Complete & Pending: Procedures Performed prior 72 hours Category Date Time Status CT guided asp with tube [CT] Routine Cat Scan 09/06/17 Completed Date of admission: 09/04/17 20:39 Primary care physician: Michelle Amin CNP Consults: 09/05/17 10:37 Consult to Interventional Radiology [CONS] Routine Consulting Provider: Radiology Interventional Cols Reason for Consult: Possible Left renal abscess for drainage Time Notified: 10:38 Call Completed: No Discharging clinician: Amaury Johnson Anticipated date of discharge: 09/06/17 - Patient Status Disposition: Home, Self-Care Condition: Good Functional capacity at discharge: independent ambulation Overall status at discharge: patient is progressing back to baseline - Discharge Instructions Instructions: Diabetes Mellitus Type 2 in Adults (DC) Follow Up With: Michelle Amin CNP [Primary Care Provider] - 09/13/17 1:15 pm (1-2 weeks) Perico Michelle MD [Partnered Physician] - (Please keep your phone with you , so that the office will be able to get with you to schedule your return follow up. Thank you) Additional Instructions: Follow up with urology in 2 weeks. They will call you to set up an appointment. - Diet and Activity Activity: increase activity as tolerated Diet: diabetic diet, low fat, low cholesterol, low salt diet Hospital course: Mr. Ortega is a 36 year old male patient with history of diabetes, hepatitis C was admitted here with left renal abscess. Urology was consulted and patient was started on IV antibiotics. His urine culture is growing Jade and he seems to have had the same organism growing prior urine cultures. Patient also had a retained left ureteral stent and urology recommends removing this at later date as outpatient. Interventional radiology was consulted and an abscess was drained today. Patient is now doing much better and he is clinically stable for discharge home. Urology recommends placing the patient on oral antibiotics in addition to oral fluconazole to complete treatment course. - Time Spent with Patient Total time spent providing and/or coordinating discharge services: Greater than 30 minutes (45 min) - Constitutional Vitals: Temp Pulse Resp BP Pulse Ox 97.5 F L 78 16 127/78 100 09/06/17 11:41 09/06/17 11:41 09/06/17 11:41 09/06/17 11:41 09/06/17 11:41 General appearance: Present: cooperative, A&O X 3, answers questions appropriately - Respiratory Respiratory exam: Present: CTAB. Absent: accessory muscle use, rales, rhonchi, wheezes - Cardiovascular Cardiovascular exam: Present: RRR, +S1, +S2. Absent: diastolic murmur, gallop, rubs, systolic murmur - GI/Abdominal GI/Abdominal exam: Present: normal bowel sounds, soft, no peritoneal signs. Absent: distended, tenderness - Extremities Exam Extremities exam: Present: warm, radial pulses palpable and symmetrical. Absent : calf tenderness, cyanotic, pedal edema - Back Exam Back exam: Present: CVA tenderness (L)
[2017-09-06 15:30] VITALS: BP 116/75
[2017-09-06] MEDS: *HR* OxyCODONE Immed Rel 5 MG TABLET PO PRN (15:30)
[2017-09-06] MEDS ORDERED: Aminoglycoside Consult 1 EACH MC ONE (16:29)
== END 2017-09-06 16:30 | disposition home or self-care (01) ==
LOC: 3ANU 17:55 → EMEROO 17:55 → 3ANU 20:49
PROVIDERS: ADMIT Internal Medicine; ATTEND Internal Medicine
PROC: IRDRAIN (2017-09-06 12:00)

== ENCOUNTER 2018-03-18 08:30 | Inpatient (IN) ==
--- NOTE | 2018-03-18 08:35 | Emergency Department Note ---
Disposition Clinical Impression: DKA (diabetic ketoacidoses) Qualifiers: Diabetes mellitus type: type 1 Diabetes mellitus complication detail: without coma Qualified Code(s): E10.10 - Type 1 diabetes mellitus with ketoacidosis without coma UTI (urinary tract infection) Qualifiers: Urinary tract infection type: site unspecified Hematuria presence: without hematuria Qualified Code(s): N39.0 - Urinary tract infection, site not specified Nausea and vomiting Qualifiers: Vomiting type: unspecified Vomiting Intractability: non-intractable Qualified Code(s): R11.2 - Nausea with vomiting, unspecified Hypotension Qualifiers: Hypotension type: unspecified hypotension type Qualified Code(s): I95.9 - Hypotension, unspecified Disposition: Admitted As Inpatient Condition: Serious Time of Disposition: 11:38 Nausea/Vomiting/Diarrhea HPI - General Chief complaint: ED Nausea/Vomiting/Diarrhea Stated complaint: Vomiting for days/Weakness Time Seen by Provider: 03/18/18 08:33 Source: patient Mode of arrival: ambulatory Limitations: no limitations Nursing Notes Reviewed: Yes Vital Signs Reviewed: Yes - History of Present Illness HPI Narrative: Patient is a 37-year-old male with past medical history of diabetes, insulin- dependent with a insulin pump, kidney stones that have required ureteral stents in the past, marijuana use daily. He presents today due to vomiting for the past 2 days. He does admit to some epigastric discomfort after vomiting, bilateral flank pain that he states is similar to previous kidney stone pain. Describes the pain as sharp in nature. Rated a 10 out of 10. He has had some loose stools as well but denies any blood. Denies any other fever, chest pain, shortness of breath, dysuria, hematuria, any known sick contacts. He does state that his blood sugars have been running fairly well and the 100s. However , his insulin pump stopped yesterday and he has not checked his blood sugar since. - Related Data Home Medications Medication Instructions Recorded Confirmed Subcutaneous Insulin Pump [T:Slim] 1 each MC AD 03/18/18 03/18/18 Allergies Allergy/AdvReac Type Severity Reaction Status Date / Time No Known Allergies Allergy Verified 01/22/18 09:32 Constitutional: Denies: fever Cardiovascular: Denies: chest pain Respiratory: Denies: cough, dyspnea Gastrointestinal: Reports: abdominal pain, nausea, vomiting, diarrhea. Denies: constipation, hematemesis, melena, hematochezia Genitourinary: Denies: urgency, dysuria Musculoskeletal: Reports: back pain Integumentary: Denies: rash Neurological: Denies: headache, weakness, numbness, paresthesias Psychiatric: Denies: anxiety, depression Past Medical History - Past Medical History Attestation: Yes The following information was validated with the patient. Source: patient Medical history: Reports: arthritis, diabetes, hepatitis, kidney stones Surgical history: Reports: no surgical history, other Psychiatric history: Reports: anxiety, depression, other - Social History Smoking Status: Current every day smoker Smokeless Tobacco Status: No Alcohol use: Reports: occasionally Drug use: Reports: marijuana, IV Drug Use Physical Exam - General Limitations: no limitations General appearance: alert, in no apparent distress - Head Head exam: atraumatic, normocephalic, normal inspection - Eye Eye exam: Present: normal appearance, PERRL, EOMI - ENT ENT exam: normal exam, normal oropharynx, mucous membranes dry - Neck Neck exam: Present: normal inspection, full ROM, trachea midline - Chest Chest inspection: Present: normal inspection, symmetric chest wall rise - Respiratory Respiratory exam: Present: normal lung sounds bilaterally - Cardiovascular Cardiovascular exam: Present: regular rate, normal rhythm, normal heart sounds - Abdominal Exam Abdominal exam: Present: soft, tenderness (Mild/moderate epigastric tenderness) . Absent: distention, guarding, rebound, rigidity, Bowman's sign, Rovsing's sign, tenderness at McBurney's Point - Extremities Exam Extremities exam: Present: normal inspection, full ROM. Absent: tenderness, pedal edema - Neurological Exam Neurological exam: Present: alert, oriented X3 - Psychiatric Psychiatric exam: Present: normal affect, normal mood - Skin Skin exam: Present: warm, dry, intact, normal color Course Course Narrative: Patient was tachycardic on presentation had dry mucous membranes, mild epigastric and bilateral flank pain. Patient is given a normal liter saline bolus on presentation. He was also given fentanyl and Zofran for pain and nausea control. Basic labs obtained including DKA labs. We also ordered urinalysis, CT abdomen and pelvis for further assessment of abdominal and flank pain in setting of history of kidney stones requiring stents. Basic lab work has returned, patient has severe hyponatremia, hypochloremia, hypokalemia, compensated acidosis, blood glucose in the 600s. He also has an elevated white blood cell count. Currently waiting on CT abdomen and pelvis and urinalysis. Starting IV potassium replacement at this time. Patient will be given another liter normal saline bolus. Cannot start insulin drip at this time due to hypokalemia. Once potassium is up to 3.3-3.4, we will start insulin drip. Patient will need to be admitted to ICU for further care after labs return. 11:[address] Arcos , cert occupational therapy asst, he requested midline placement. Potassium has been started on the patient. Again, insulin drip not started due to severe hypokalemia. He will see the patient at bedside and then decide if patient needs to go the ICU or to [place]. Patient also had UTI on workup. It had not started the patient on vancomycin and Zosyn due to serious condition. CT abdomen and pelvis negative for any acute abnormalities. 12:30 patient seen and evaluated by cert occupational therapy asst. He recommended admission to the hospitalist to 2 N. for further care. The patient was accepted by Dr. Briggs Abdomen/Pelvis CT 03/18/18 08:42 IMPRESSION: No acute intra-abdominal or pelvic abnormalities. Diffuse fatty infiltration of the liver D/ / Delfino Child MD / Delfino Child MD Interpreting Provider: Delfino Child MD Vital Signs Temperature 98.2 F 03/18/18 08:31 Pulse Rate 122 03/18/18 08:31 Respiratory Rate 18 03/18/18 08:31 Blood Pressure 94/67 03/18/18 08:31 O2 Sat by Pulse Oximetry 99 03/18/18 08:31 Temperature 98.2 F 03/18/18 08:35 Pulse Rate 96 03/18/18 11:41 Respiratory Rate 18 03/18/18 11:41 Blood Pressure 135/87 03/18/18 11:41 O2 Sat by Pulse Oximetry 97 03/18/18 11:41 Oxygen Delivery Oxygen Delivery Room Air Nausea/Vomiting/Diarrhea - MDM Narrative Medical decision making narrative: Patient was tachycardic on presentation had dry mucous membranes, mild epigastric and bilateral flank pain. Patient is given a normal liter saline bolus on presentation. He was also given fentanyl and Zofran for pain and nausea control. Basic labs obtained including DKA labs. We also ordered urinalysis, CT abdomen and pelvis for further assessment of abdominal and flank pain in setting of history of kidney stones requiring stents. Basic lab work has returned, patient has severe hyponatremia, hypochloremia, hypokalemia, compensated acidosis, blood glucose in the 600s. He also has an elevated white blood cell count. Currently waiting on CT abdomen and pelvis and urinalysis. Starting IV potassium replacement at this time. Patient will be given another liter normal saline bolus. Cannot start insulin drip at this time due to hypokalemia. Once potassium is up to 3.3-3.4, we will start insulin drip. Patient will need to be admitted to ICU for further care after labs return. 11:[address] Arcos , cert occupational therapy asst, he requested midline placement. Potassium has been started on the patient. Again, insulin drip not started due to severe hypokalemia. He will see the patient at bedside and then decide if patient needs to go the ICU or to [place]. Patient also had UTI on workup. It had not started the patient on vancomycin and Zosyn due to serious condition. CT abdomen and pelvis negative for any acute abnormalities. 12:30 patient seen and evaluated by cert occupational therapy asst. He recommended admission to the hospitalist to 2 N. for further care. The patient was accepted by Dr. Briggs - Medical Records Medical records reviewed: Yes I reviewed the patient's medical records. - Lab Data Lab results reviewed: Yes I reviewed the patient's lab results. Result diagrams: 03/18/18 09:05 03/18/18 12:03 Lab Results 03/18/18 03/18/18 03/18/18 Range/Units 09:05 09:05 09:05 WBC 17.0 H (4.3-11.1) K/mcL RBC 4.72 (4.19-5.50) M/mcL Hgb 13.9 (12.9-16.9) g/dL Hct 38.3 (37.5-50.1) % MCV 81.1 L (83.0-100.0) fL MCH 29.4 (28.0-33.3) pg MCHC 36.3 H (31.6-35.5) g/dL RDW 13.3 (11.5-14.5) % Plt Count 245 (140-400) K/mcL MPV 10.9 (9.4-12.4) fL Immature Gran % 0.6 (0-4) % Seg Neutrophils % 84.2 % Lymphocytes % 4.4 % Monocytes % 10.7 % Eosinophils % 0.0 % Basophils % 0.1 % Neutrophils # 14.3 H (1.6-8.9) K/mcL Lymphocytes # 0.7 (0.6-4.6) K/mcL Monocytes # 1.8 H (0.0-1.3) K/mcL Eosinophils # 0.0 (0.0-0.6) K/mcL Basophils # 0.0 (0.0-0.2) K/mcL VBG pH (7.32-7.42) pH Units VBG pCO2 (41-51) mmHg VBG pO2 (25-50) mmHg VBG HCO3 (21-27) mEq/L Sodium 118 L* (136-145) mEq/L Potassium 2.3 L* (3.5-5.1) mEq/L Chloride 64 L (98-107) mEq/L Carbon Dioxide 12 L (23-29) mEq/L BUN 74 H (6-20) mg/dL Creatinine 2.26 H (0.70-1.30) mg/dL Est GFR ( Amer) 40 L (> 60) Est GFR (Non-Af Amer) 33 L (> 60) BUN/Creatinine Ratio 33 H (6-26) Glucose 634 H* (70-105) mg/dL Calculated Osmolality 298 (280-300) Calcium 8.4 L (8.6-10.3) mg/dL Phosphorus (2.7-4.5) mg/dL Magnesium (1.6-2.6) mg/dL Total Bilirubin 0.8 (0.3-1.0) mg/dL AST 40 H (13-39) Units/L ALT 44 (7-52) Units/L Alkaline Phosphatase 135 H (34-104) Units/L Serum Total Protein 7.6 (6.4-8.9) g/dL Albumin 4.6 (3.5-5.7) g/dL Globulin 3.0 (2.4-3.5) g/dL Albumin/Globulin Ratio 1.5 (1.1-2.2) Lipase 17 (11-82) Units/L Beta-Hydroxybutyric Acd > 2.00 H (0.02-0.27) mmol/L Urine Color (Yellow) Urine Clarity (Clear) Urine pH (5.0-8.0) pH Units Ur Specific [place] (1.010-1.025) Urine Protein (Neg-Trace) mg/dL Urine Glucose (UA) (Normal) mg/dL Urine Ketones (Negative) mg/dL Urine Blood (Negative) Urine Nitrite (Negative) Urine Bilirubin (Negative) Urine Urobilinogen (Normal) mg/dL Ur Leukocyte Esterase (Negative) Urine Microscopic RBC (0-3) per hpf Urine Microscopic WBC (0-3) per hpf Ur Squamous Epith Cells (None-Few) per lpf Urine Bacteria (None-Few) per hpf Hyaline Casts (None-Few) per lpf Urine Yeast (None Seen) per hpf Ur Culture Indicated? (NO) 03/18/18 03/18/18 03/18/18 Range/Units 09:15 09:54 12:03 WBC (4.3-11.1) K/mcL RBC (4.19-5.50) M/mcL Hgb (12.9-16.9) g/dL Hct (37.5-50.1) % MCV (83.0-100.0) fL MCH (28.0-33.3) pg MCHC (31.6-35.5) g/dL RDW (11.5-14.5) % Plt Count (140-400) K/mcL MPV (9.4-12.4) fL Immature Gran % (0-4) % Seg Neutrophils % % Lymphocytes % % Monocytes % % Eosinophils % % Basophils % % Neutrophils # (1.6-8.9) K/mcL Lymphocytes # (0.6-4.6) K/mcL Monocytes # (0.0-1.3) K/mcL Eosinophils # (0.0-0.6) K/mcL Basophils # (0.0-0.2) K/mcL VBG pH 7.42 (7.32-7.42) pH Units VBG pCO2 19 L (41-51) mmHg VBG pO2 105 H (25-50) mmHg VBG HCO3 12 L (21-27) mEq/L Sodium (136-145) mEq/L Potassium (3.5-5.1) mEq/L Chloride (98-107) mEq/L Carbon Dioxide (23-29) mEq/L BUN (6-20) mg/dL Creatinine (0.70-1.30) mg/dL Est GFR ( Amer) (> 60) Est GFR (Non-Af Amer) (> 60) BUN/Creatinine Ratio (6-26) Glucose (70-105) mg/dL Calculated Osmolality (280-300) Calcium (8.6-10.3) mg/dL Phosphorus 4.8 H (2.7-4.5) mg/dL Magnesium 2.5 (1.6-2.6) mg/dL Total Bilirubin (0.3-1.0) mg/dL AST (13-39) Units/L ALT (7-52) Units/L Alkaline Phosphatase (34-104) Units/L Serum Total Protein (6.4-8.9) g/dL Albumin (3.5-5.7) g/dL Globulin (2.4-3.5) g/dL Albumin/Globulin Ratio (1.1-2.2) Lipase (11-82) Units/L Beta-Hydroxybutyric Acd (0.02-0.27) mmol/L Urine Color Yellow (Yellow) Urine Clarity Clear (Clear) Urine pH 5.5 (5.0-8.0) pH Units Ur Specific [place] 1.021 (1.010-1.025) Urine Protein Trace (Neg-Trace) mg/dL Urine Glucose (UA) >=1000 H (Normal) mg/dL Urine Ketones 80 H (Negative) mg/dL Urine Blood Moderate H (Negative) Urine Nitrite Negative (Negative) Urine Bilirubin Negative (Negative) Urine Urobilinogen Normal (Normal) mg/dL Ur Leukocyte Esterase Negative (Negative) Urine Microscopic RBC 5-15 H (0-3) per hpf Urine Microscopic WBC 15-30 H (0-3) per hpf Ur Squamous Epith Cells Few (None-Few) per lpf Urine Bacteria Many H (None-Few) per hpf Hyaline Casts None Seen (None-Few) per lpf Urine Yeast Many H (None Seen) per hpf Ur Culture Indicated? NO (NO) 03/18/18 Range/Units 12:03 WBC (4.3-11.1) K/mcL RBC (4.19-5.50) M/mcL Hgb (12.9-16.9) g/dL Hct (37.5-50.1) % MCV (83.0-100.0) fL MCH (28.0-33.3) pg MCHC (31.6-35.5) g/dL RDW (11.5-14.5) % Plt Count (140-400) K/mcL MPV (9.4-12.4) fL Immature Gran % (0-4) % Seg Neutrophils % % Lymphocytes % % Monocytes % % Eosinophils % % Basophils % % Neutrophils # (1.6-8.9) K/mcL Lymphocytes # (0.6-4.6) K/mcL Monocytes # (0.0-1.3) K/mcL Eosinophils # (0.0-0.6) K/mcL Basophils # (0.0-0.2) K/mcL VBG pH (7.32-7.42) pH Units VBG pCO2 (41-51) mmHg VBG pO2 (25-50) mmHg VBG HCO3 (21-27) mEq/L Sodium (136-145) mEq/L Potassium 2.4 L* (3.5-5.1) mEq/L Chloride (98-107) mEq/L Carbon Dioxide (23-29) mEq/L BUN (6-20) mg/dL Creatinine (0.70-1.30) mg/dL Est GFR ( Amer) (> 60) Est GFR (Non-Af Amer) (> 60) BUN/Creatinine Ratio (6-26) Glucose (70-105) mg/dL Calculated Osmolality (280-300) Calcium (8.6-10.3) mg/dL Phosphorus (2.7-4.5) mg/dL Magnesium (1.6-2.6) mg/dL Total Bilirubin (0.3-1.0) mg/dL AST (13-39) Units/L ALT (7-52) Units/L Alkaline Phosphatase (34-104) Units/L Serum Total Protein (6.4-8.9) g/dL Albumin (3.5-5.7) g/dL Globulin (2.4-3.5) g/dL Albumin/Globulin Ratio (1.1-2.2) Lipase (11-82) Units/L Beta-Hydroxybutyric Acd (0.02-0.27) mmol/L Urine Color (Yellow) Urine Clarity (Clear) Urine pH (5.0-8.0) pH Units Ur Specific [place] (1.010-1.025) Urine Protein (Neg-Trace) mg/dL Urine Glucose (UA) (Normal) mg/dL Urine Ketones (Negative) mg/dL Urine Blood (Negative) Urine Nitrite (Negative) Urine Bilirubin (Negative) Urine Urobilinogen (Normal) mg/dL Ur Leukocyte Esterase (Negative) Urine Microscopic RBC (0-3) per hpf Urine Microscopic WBC (0-3) per hpf Ur Squamous Epith Cells (None-Few) per lpf Urine Bacteria (None-Few) per hpf Hyaline Casts (None-Few) per lpf Urine Yeast (None Seen) per hpf Ur Culture Indicated? (NO) - Radiology Data Radiology results reviewed: Yes I reviewed the patient's radiology results. Abdomen/Pelvis CT 03/18/18 08:42 IMPRESSION: No acute intra-abdominal or pelvic abnormalities. Diffuse fatty infiltration of the liver D/ / Delfino Child MD / Delfino Child MD Interpreting Provider: Delfino Child MD S.B.A.R. - S.B.A.R. Situation: Demographics, MOA Background: Presenting Complaint, Relevant PMH, Meds, & Allergies Assessment: Vital Signs, Course and respsone to treatment, Exam Concerns, Patient/Family Expectation, Pertinant Lab Results Recommendation: Barrier(s) to disposition, Recommendation based on pending studies, treatments, or consults S.B.A.R. Report Given to: Dr. Briggs
[2018-03-18] MEDS ORDERED: 0.9 % Sodium Chloride 1,000 ML IVC ONE ×2 (08:43→09:50)
[2018-03-18] MEDS ORDERED: *HR* FentaNYL (PF) 100 MCG/2 ML VIAL IVP ONE (08:43)
[2018-03-18] MEDS ORDERED: Ondansetron 4 MG/2 ML VIAL IVP ONE (08:43)
[2018-03-18 09:15] LABS: Basophils % 0.1 %; Hematocrit 38.3 % (37.5-50.1); Hemoglobin 13.9 g/dL (12.9-16.9); Immature Granulocytes % 0.6 % (0-4); Lymphocytes # 0.7 K/mcL (0.6-4.6); Lymphocytes % 4.4 %; Mean Corpuscular HGB Conc 36.3 g/dL (31.6-35.5); Mean Corpuscular Hemoglobin 29.4 pg (28.0-33.3); Mean Corpuscular Volume 81.1 fL (83.0-100.0); Mean Platelet Volume 10.9 fL (9.4-12.4); Monocytes # 1.8 K/mcL (0.0-1.3); Monocytes % 10.7 %; Neutrophils # 14.3 K/mcL (1.6-8.9); Platelet Count 245 K/mcL (140-400); Red Blood Count 4.72 M/mcL (4.19-5.50); Red Cell Distribution Width 13.3 % (11.5-14.5); Segmented Neutrophils % 84.2 %
[2018-03-18 09:19] LABS: VBG HCO3 12 mEq/L (21-27); VBG PCO2 19 mmHg (41-51); VBG PH 7.42 pH Units (7.32-7.42); VBG PO2 105 mmHg (25-50)
[2018-03-18 09:42] LABS: Albumin 4.6 g/dL (3.5-5.7); Albumin/Globulin Ratio 1.5 (1.1-2.2); Bilirubin,Total 0.8 mg/dL (0.3-1.0); Calcium 8.4 mg/dL (8.6-10.3); Potassium 2.3 mEq/L (3.5-5.1); Total Protein 7.6 g/dL (6.4-8.9)
[2018-03-18] MEDS ORDERED: Potassium Chloride 40 MEQ, Lidocaine 1% 2 ML in D5% in Water 500 ML IVPB ONE (09:50)
--- NOTE | 2018-03-18 09:59 | Emergency Department Note ---
Disposition Clinical Impression: DKA (diabetic ketoacidoses) Disposition: Admitted As Inpatient Referrals: Michelle Amin CNP [Primary Care Provider] - Forms: ED Satisfaction Letter General Adult HPI - General Chief complaint: ED Nausea/Vomiting/Diarrhea Stated complaint: Vomiting for days/Weakness Time Seen by Provider: 03/18/18 08:33 Source: patient Mode of arrival: ambulatory Limitations: no limitations - History of Present Illness Pain Scale: 9 - Related Data Home Medications Medication Instructions Recorded Confirmed Gabapentin [Neurontin] 600 mg PO TID 07/05/17 09/06/17 Quetiapine Fumarate [Seroquel] 50 - 100 mg PO HS 07/05/17 09/06/17 Subcutaneous Insulin Pump [T:Slim] 0 unit MC AD 07/05/17 09/06/17 Previous Rx's Medication Instructions Recorded Amoxicillin/Clavulanate [Augmentin] 875 mg PO BIDWM #28 tablet 09/06/17 Fluconazole [Diflucan] 400 mg PO DAILY #28 tab 09/06/17 Lactobacillus [Culturelle] 1 each PO BID #30 cap.sprink 09/06/17 Naproxen [Naprosyn] 500 mg PO BID #6 tablet 12/17/17 Ciprofloxacin [Cipro] 500 mg PO BID #10 tablet 12/23/17 Ondansetron ODT [Zofran ODT] 4 mg SL Q6HR #10 tab.rapdis 12/23/17 Ondansetron HCl [Zofran] 4 mg PO Q8HR PRN 5 Days #15 tab 01/22/18 Allergies Allergy/AdvReac Type Severity Reaction Status Date / Time No Known Allergies Allergy Verified 01/22/18 09:32 Constitutional: Denies: fever Cardiovascular: Denies: chest pain Respiratory: Denies: cough, dyspnea Gastrointestinal: Reports: abdominal pain, nausea, vomiting, diarrhea. Denies: constipation, hematemesis, melena, hematochezia Genitourinary: Denies: urgency, dysuria Musculoskeletal: Reports: back pain Integumentary: Denies: rash Neurological: Denies: headache, weakness, numbness, paresthesias Psychiatric: Denies: anxiety, depression Past Medical History - Past Medical History Medical history: Reports: arthritis, diabetes, hepatitis, kidney stones Surgical history: Reports: no surgical history, other Psychiatric history: Reports: anxiety, depression, other - Social History Smoking Status: Current every day smoker Smokeless Tobacco Status: No Alcohol use: Reports: occasionally Drug use: Reports: marijuana, IV Drug Use Physical Exam - General Limitations: no limitations General appearance: alert, in no apparent distress Course Vital Signs Temperature 98.2 F 03/18/18 08:31 Pulse Rate 122 03/18/18 08:31 Respiratory Rate 18 03/18/18 08:31 Blood Pressure 94/67 03/18/18 08:31 O2 Sat by Pulse Oximetry 99 03/18/18 08:31 Temperature 98.2 F 03/18/18 08:35 Pulse Rate 100 03/18/18 09:52 Respiratory Rate 18 03/18/18 09:52 Blood Pressure 128/85 03/18/18 09:52 O2 Sat by Pulse Oximetry 97 03/18/18 09:52 Oxygen Delivery Oxygen Delivery Room Air Medical Decision Making - Lab Data Result diagrams: 03/18/18 09:05 03/18/18 09:05 Lab Results 03/18/18 03/18/18 03/18/18 Range/Units 09:05 09:05 09:05 WBC 17.0 H (4.3-11.1) K/mcL RBC 4.72 (4.19-5.50) M/mcL Hgb 13.9 (12.9-16.9) g/dL Hct 38.3 (37.5-50.1) % MCV 81.1 L (83.0-100.0) fL MCH 29.4 (28.0-33.3) pg MCHC 36.3 H (31.6-35.5) g/dL RDW 13.3 (11.5-14.5) % Plt Count 245 (140-400) K/mcL MPV 10.9 (9.4-12.4) fL Immature Gran % 0.6 (0-4) % Seg Neutrophils % 84.2 % Lymphocytes % 4.4 % Monocytes % 10.7 % Eosinophils % 0.0 % Basophils % 0.1 % Neutrophils # 14.3 H (1.6-8.9) K/mcL Lymphocytes # 0.7 (0.6-4.6) K/mcL Monocytes # 1.8 H (0.0-1.3) K/mcL Eosinophils # 0.0 (0.0-0.6) K/mcL Basophils # 0.0 (0.0-0.2) K/mcL VBG pH (7.32-7.42) pH Units VBG pCO2 (41-51) mmHg VBG pO2 (25-50) mmHg VBG HCO3 (21-27) mEq/L Sodium 118 L* (136-145) mEq/L Potassium 2.3 L* (3.5-5.1) mEq/L Chloride 64 L (98-107) mEq/L Carbon Dioxide 12 L (23-29) mEq/L BUN 74 H (6-20) mg/dL Creatinine 2.26 H (0.70-1.30) mg/dL Est GFR ( Amer) 40 L (> 60) Est GFR (Non-Af Amer) 33 L (> 60) BUN/Creatinine Ratio 33 H (6-26) Glucose 634 H* (70-105) mg/dL Calculated Osmolality 298 (280-300) Calcium 8.4 L (8.6-10.3) mg/dL Total Bilirubin 0.8 (0.3-1.0) mg/dL AST 40 H (13-39) Units/L ALT 44 (7-52) Units/L Alkaline Phosphatase 135 H (34-104) Units/L Serum Total Protein 7.6 (6.4-8.9) g/dL Albumin 4.6 (3.5-5.7) g/dL Globulin 3.0 (2.4-3.5) g/dL Albumin/Globulin Ratio 1.5 (1.1-2.2) Lipase 17 (11-82) Units/L Beta-Hydroxybutyric Acd > 2.00 H (0.02-0.27) mmol/L Urine Color (Yellow) Urine Clarity (Clear) Urine pH (5.0-8.0) pH Units Ur Specific [place] (1.010-1.025) Urine Protein (Neg-Trace) mg/dL Urine Glucose (UA) (Normal) mg/dL Urine Ketones (Negative) mg/dL Urine Blood (Negative) Urine Nitrite (Negative) Urine Bilirubin (Negative) Urine Urobilinogen (Normal) mg/dL Ur Leukocyte Esterase (Negative) 03/18/18 03/18/18 Range/Units 09:15 09:54 WBC (4.3-11.1) K/mcL RBC (4.19-5.50) M/mcL Hgb (12.9-16.9) g/dL Hct (37.5-50.1) % MCV (83.0-100.0) fL MCH (28.0-33.3) pg MCHC (31.6-35.5) g/dL RDW (11.5-14.5) % Plt Count (140-400) K/mcL MPV (9.4-12.4) fL Immature Gran % (0-4) % Seg Neutrophils % % Lymphocytes % % Monocytes % % Eosinophils % % Basophils % % Neutrophils # (1.6-8.9) K/mcL Lymphocytes # (0.6-4.6) K/mcL Monocytes # (0.0-1.3) K/mcL Eosinophils # (0.0-0.6) K/mcL Basophils # (0.0-0.2) K/mcL VBG pH 7.42 (7.32-7.42) pH Units VBG pCO2 19 L (41-51) mmHg VBG pO2 105 H (25-50) mmHg VBG HCO3 12 L (21-27) mEq/L Sodium (136-145) mEq/L Potassium (3.5-5.1) mEq/L Chloride (98-107) mEq/L Carbon Dioxide (23-29) mEq/L BUN (6-20) mg/dL Creatinine (0.70-1.30) mg/dL Est GFR ( Amer) (> 60) Est GFR (Non-Af Amer) (> 60) BUN/Creatinine Ratio (6-26) Glucose (70-105) mg/dL Calculated Osmolality (280-300) Calcium (8.6-10.3) mg/dL Total Bilirubin (0.3-1.0) mg/dL AST (13-39) Units/L ALT (7-52) Units/L Alkaline Phosphatase (34-104) Units/L Serum Total Protein (6.4-8.9) g/dL Albumin (3.5-5.7) g/dL Globulin (2.4-3.5) g/dL Albumin/Globulin Ratio (1.1-2.2) Lipase (11-82) Units/L Beta-Hydroxybutyric Acd (0.02-0.27) mmol/L Urine Color Yellow (Yellow) Urine Clarity Clear (Clear) Urine pH 5.5 (5.0-8.0) pH Units Ur Specific [place] 1.021 (1.010-1.025) Urine Protein Trace (Neg-Trace) mg/dL Urine Glucose (UA) >=1000 H (Normal) mg/dL Urine Ketones 80 H (Negative) mg/dL Urine Blood Moderate H (Negative) Urine Nitrite Negative (Negative) Urine Bilirubin Negative (Negative) Urine Urobilinogen Normal (Normal) mg/dL Ur Leukocyte Esterase Negative (Negative) Attestation Statement - Attestation Attestation: I examined this patient and my medical decision-making was reviewed with the Resident Physician. I agree with the documented findings, disposition and treatment plan as described except to the extent set forth below. 37 year old male with his of dibetes presentes for abdominal pain and tachycardia and elevated blood sugars. It appers that he has a blood glucoes of 600 and WBC of 17 and appears to have a gap. VBG shows a ph of 7.4 althouhg I think that this might be a compensated metabolic acidosis. Howveer we cannot start an IV insuling secondary to potassium on 2.3, we will need to replace potassium before insulin drip can be started. WE will start IVF And antibitoics and CT scan to rule out kidney stones (history of kidney stones) and admit to medicne/ICU
[2018-03-18 10:04] LABS: Bilirubin,Urine Negative (Negative); Blood,Urine Moderate (Negative); Clarity,Urine Clear (Clear); Color,Urine Yellow (Yellow); Glucose,Urine (UA) >=1000 mg/dL (Normal); Ketones,Urine 80 mg/dL (Negative); Leukocyte Esterase,Urine Negative (Negative); Nitrite,Urine Negative (Negative); PH,Urine 5.5 pH Units (5.0-8.0); Protein,Urine Trace mg/dL (Neg-Trace); Specific Gravity,Urine 1.021 (1.010-1.025); Urobilinogen,Urine Normal (Normal)
[2018-03-18 10:06] LABS: Hyaline Casts,Urine None Seen per lpf (None-Few)
[2018-03-18 10:20] LABS: Bacteria,Urine Many per hpf (None-Few); Yeast,Urine Many per hpf (None Seen)
[2018-03-18 10:21] LABS: Squamous Epithelial Cell,Urine Few per lpf (None-Few)
[2018-03-18 10:22] LABS: WBC,Urine 15-30 per hpf (0-3)
[2018-03-18] MEDS ORDERED: Piperacillin/Tazobactam 3.375 GM in 0.9 % Sodium Chloride Mini Bag 100 ML IVPB ONE (10:36)
[2018-03-18] MEDS ORDERED: Potassium Chloride Elixir 20 MEQ/15 ML UDC PO ONE ×2 (11:26→17:54)
[2018-03-18] MEDS ORDERED: Lidocaine -MPF 1% 5 ML AMPUL INFILT ONE (11:32)
[2018-03-18 12:44] LABS: Magnesium 2.5 mg/dL (1.6-2.6); Phosphorous 4.8 mg/dL (2.7-4.5)
[2018-03-18] MEDS ORDERED: Insulin Human Regular 10 UNIT in 0.9 % Sodium Chloride 10 ML IV ONE (13:02)
[2018-03-18] MEDS ORDERED: Acetaminophen 325 MG TABLET PO PRN (13:03)
[2018-03-18] MEDS ORDERED: Naloxone 0.4 MG/ML INJ IVP PRN (13:03)
[2018-03-18] MEDS ORDERED: *HR* Dextrose 50 % in Water (Syg) 50 ML SYRINGE IVP PRN ×3 (13:03→18:31)
[2018-03-18] MEDS ORDERED: Insulin Human Regular 100 UNIT in 0.9 % Sodium Chloride 100 ML IVC SCH ×2 (13:15→18:45)
--- NOTE | 2018-03-18 13:21 | Internal Med History&Physical ---
Date of Encounter: 03/18/18 Time of Encounter: 13:18 Internal Medicine - H&P: HPI Chief complaint: Nausea and vomiting Admitted From: Emergency Dept History of present illness: Mr. Ortega is a 37 year old male with a past medical history of diabetes type 1 using an insulin pump, history of C. difficile in the past, depression, anxiety hepatitis C, IV drug abuse and left renal abscess who came to emergency room complaining of nausea and vomiting for the past 2 days with the episodes of diarrhea on and off, patient says that he stopped using insulin yesterday as his glucose was around 100. He has grown Jade in urine multiple times in the past and has had history of pyelonephritis, today he comes complaining of bilateral flank pain 10 out of 10 in intensity. Sodium is 118 potassium 2.3 chloride 60 4B UN 74 CO2 is 12 anion gap is 42 glucose 634, creatinine has increased up to 2.26 from a baseline of 1.26, white blood cell count is 17 heart rate is in the low 100s, she says she has been probably running fevers on and off overnight. Did hydroxy butyric acid more than 2. UA had 30 white blood cells many bacteria and many yeasts, was not sent for culture. I called the laboratory and requested personally for the urine to be cultured. CT scan of the abdomen shows diffuse fatty features in the liver, there is some thickening of the bladder wall. The patient is very somnolent and appears to be in pain. Has not received insulin in the ER yet, received IV fluids and potassium, also vancomycin IV and Zosyn. Past Med Surg Social Fam HX - Past Medical History Medical history: arthritis, diabetes (1 using an insulin pump), hepatitis, kidney stones (Nephrolithiasis), other (Positive for C. difficile in the past, depression, anxiety, hepatitis C, tobacco abuse, pyelonephritis, recurrent UTIs with Jade, left renal abscess) Additional medical history: hx iv drug use Psychiatric history: anxiety, depression, other - Past Surgical History Surgical History: other (Ureteral stents) Additional surgical history: insulin pump - Social History Smoking Status: Current every day smoker Packs per day: Half a pack per day Smokeless Tobacco Status: No Alcohol use: occasionally Drug use: marijuana, IV Drug Use (5 years ago) - Family History Grandmother Adopted: No Family Member Ethnicity: Non- Living Status: Hx Family Respiratory Disorders: Yes (copd) Hx Family Endocrine Disorder: Yes (diabetes) - Additional Family History Additional family history: Paternal grand mother with diabetes Internal Medicine - H&P: Meds Subcutaneous Insulin Pump [T:Slim] 1 each AD 03/18/18 [History] 3 Allergy/AdvReac Type Severity Reaction Status Date / Time No Known Allergies Allergy Verified 01/22/18 09:32 All Systems PM: A 10-system review of systems was performed and is negative for pertinent findings except as documented above in the HPI. Review of systems: Abdominal pain, back pain, dysuria, dehydrated, other systems out of the 10 reviewed were negative, very weak - Constitutional Vitals: Temp Pulse Resp BP Pulse Ox 98.2 F 97 18 130/87 99 03/18/18 08:35 03/18/18 12:55 03/18/18 12:55 03/18/18 12:55 03/18/18 12:55 General appearance: Present: A&O X 3, severe distress, underweight - Head Head exam: Present: atraumatic, normocephalic - Eye Eye exam: Present: PERRL, conjuntiva pink, sclera anicteric Pupils: Present: PERRL - Neck Neck exam general surgery: Present: supple, trachea midline. Absent: lymphadenopathy - Respiratory Respiratory exam: Present: CTAB. Absent: accessory muscle use, rales, rhonchi, wheezes - Cardiovascular Cardiovascular exam: Present: RRR, +S1, +S2, tachycardia. Absent: diastolic murmur, gallop, rubs, systolic murmur - GI/Abdominal GI/Abdominal exam: Present: distended, normal bowel sounds, soft, no peritoneal signs. Absent: tenderness Additional comments: Diffuse abdominal tenderness, flank tenderness bilaterally - Extremities Exam Extremities exam: Present: warm, radial pulses palpable and symmetrical. Absent : calf tenderness, cyanotic, pedal edema - Neurological Exam Neurological exam: Present: CN II-XII intact, oriented X3, no focal deficits. Absent: pronater drift, facial droop, speech deficit - Skin Skin exam: Present: dry, intact Additional comments: Very dry mucosa, very dehydrated Internal Med - H&P Results - Labs CBC & Chem 7: 03/18/18 09:05 03/18/18 12:03 - Assessment and plan (1) DKA (diabetic ketoacidoses) Current Visit: Yes Status: Acute Assessment and plan: Acute DKA likely secondary to sepsis from possible UTI, symptomatic for possible pyelonephritis Start IV fluconazole as the patient has grown Jade multiple times, UA shows again yeasts May continue Zosyn Give 10 units of insulin and start insulin drip Continue normal saline with 10 mEq of potassium at 200 mL/h, switch to D5 and half-normal saline with 10 medical and so potassium at 150 mL/h once glucose is below 300 Urine culture, lactic acid, blood cultures Send to the ICU, may start clear liquids if feeling better, switch back to nothing by mouth if worse IV Protonix for GI prophylaxis and subcutaneous tenderness heparin for DVT prophylaxis. The patient will be admitted as inpatient, expected to stay more than 2 midnights. Full code. Time spent on this critical care admission 40 minutes Qualifiers: Diabetes mellitus type: type 1 Diabetes mellitus complication detail: without coma Qualified Code(s): E10.10 - Type 1 diabetes mellitus with ketoacidosis without coma (2) Urinary tract infection Current Visit: Yes Status: Acute Qualifiers: Urinary tract infection type: site unspecified Hematuria presence: without hematuria Qualified Code(s): N39.0 - Urinary tract infection, site not specified (3) Acute renal failure Current Visit: No Status: Acute Assessment and plan: Acute renal failure secondary to severe dehydration Severe hyponatremia Monitor sodium every 4 hours, increase no faster than 0.5 mEq every hour Qualifiers: Acute renal failure type: unspecified Qualified Code(s): N17.9 - Acute kidney failure, unspecified (4) Yeast UTI Current Visit: No Status: Acute (5) Hepatitis C Current Visit: No Status: Chronic Qualifiers: Viral hepatitis chronicity: chronic Hepatic coma status: without hepatic coma Qualified Code(s): B18.2 - Chronic viral hepatitis C (6) Hyperglycemia due to type 1 diabetes mellitus Current Visit: No Status: Chronic (7) Hypokalemia due to loss of potassium Current Visit: No Status: Resolved (8) Sepsis Current Visit: No Status: Resolved Qualifiers: Sepsis type: sepsis due to unspecified organism Qualified Code(s): A41.9 - Sepsis, unspecified organism (9) Tobacco abuse Current Visit: Yes Status: Acute Assessment and plan: Smoking cessation counseling, nicotine patch - Time Spent With Patient Total time spent is greater than 50% in coordination of care (as documented) at patient's floor/unit and/or counseling patient:
[2018-03-18] MEDS: OXYCODONE Oral CONC 10 MG/0.5 ML ORAL.SYG SL PRN ×3 (14:15→21:50)
[2018-03-18] MEDS: D5% in 0.45% NACL w KCl 10 MEQ/1,000 ML MLS IVC SCH ×3 (14:31→22:58)
[2018-03-18] MEDS: Fluconazole 100 MG/50 ML 100 MG/50 ML BAG IVPB SCH (14:34)
[2018-03-18] MEDS: Pantoprazole 40 MG VIAL IVP SCH (15:06)
[2018-03-18] MEDS: Nicotine 21 MG PATCH.TD24 TD SCH (15:16)
[2018-03-18 16:26] LABS: Calcium 7.1 mg/dL (8.6-10.3); Potassium 2.2 mEq/L (3.5-5.1)
[2018-03-18] MEDS: *HR* Heparin 5,000 UNIT/ML VIAL SQ SCH (17:34)
[2018-03-18] MEDS ORDERED: D5% in 0.45% NACL w KCl 20 MEQ/1,000 ML MLS IVC PRN (17:56)
[2018-03-18] MEDS ORDERED: Insulin Regular, Human 100 UNIT/ML IV PRN ×2 (17:56→18:31)
[2018-03-18] MEDS ORDERED: D5% in 0.45% NACL 1,000 ML IVC PRN (17:56)
[2018-03-18] MEDS: Piperacillin/Tazobactam 3.375 GM in 0.9 % Sodium Chloride Mini Bag 100 ML IVPB SCH (20:02)
[2018-03-18 21:22] LABS: BUN/Creatinine Ratio 34 (6-26); Blood Urea Nitrogen 53 mg/dL (6-20); Calcium 6.6 mg/dL (8.6-10.3); Carbon Dioxide 25 mEq/L (23-29); Chloride 97 mEq/L (98-107); Glucose 274 mg/dL (70-105); Osmolality,Calculated 292 (280-300); Potassium 2.4 mEq/L (3.5-5.1); Sodium 129 mEq/L (136-145); eGFR For African Americans > 60 (> 60); eGFR For Non-African Americans 51 (> 60)
[2018-03-19 00:16] LABS: Calcium 7.4 mg/dL (8.6-10.3); Potassium 2.6 mEq/L (3.5-5.1)
[2018-03-19] MEDS: *HR* Heparin 5,000 UNIT/ML VIAL SQ SCH ×3 (00:17→16:54)
[2018-03-19] MEDS: OXYCODONE Oral CONC 10 MG/0.5 ML ORAL.SYG SL PRN ×6 (00:17→22:58)
[2018-03-19] MEDS ORDERED: Dextrose Gel 15 GM/37.5 ML TUBE PO PRN ×2 (00:58)
[2018-03-19] MEDS ORDERED: D5% in Water 1,000 ML IVC PRN (00:58)
[2018-03-19] MEDS ORDERED: Insulin DETEMIR 100 UNIT/ML X5UNITS SQ ONE (01:28)
[2018-03-19] MEDS: Piperacillin/Tazobactam 3.375 GM in 0.9 % Sodium Chloride Mini Bag 100 ML IVPB SCH ×3 (03:54→21:03)
[2018-03-19 04:01] LABS: Hematocrit 30.4 % (37.5-50.1); Mean Corpuscular HGB Conc 35.9 g/dL (31.6-35.5); Mean Corpuscular Hemoglobin 28.5 pg (28.0-33.3); Mean Corpuscular Volume 79.4 fL (83.0-100.0); Mean Platelet Volume 10.3 fL (9.4-12.4); Platelet Count 182 K/mcL (140-400); Red Blood Count 3.83 M/mcL (4.19-5.50); Red Cell Distribution Width 13.2 % (11.5-14.5)
[2018-03-19 04:12] LABS: Hemoglobin 10.9 g/dL (12.9-16.9)
[2018-03-19 04:20] LABS: BUN/Creatinine Ratio 29 (6-26); Blood Urea Nitrogen 42 mg/dL (6-20); Calcium 7.5 mg/dL (8.6-10.3); Carbon Dioxide 26 mEq/L (23-29); Chloride 96 mEq/L (98-107); Glucose 128 mg/dL (70-105); Osmolality,Calculated 282 (280-300); Potassium 2.8 mEq/L (3.5-5.1); Sodium 130 mEq/L (136-145); eGFR For African Americans > 60 (> 60); eGFR For Non-African Americans 55 (> 60)
[2018-03-19] MEDS ORDERED: Potassium Phosphate 44 MEQ in 0.9 % Sodium Chloride 250 ML IVPB PRN (05:34)
[2018-03-19] MEDS: Ondansetron 4 MG/2 ML VIAL IVP PRN ×3 (07:52→19:27)
[2018-03-19] MEDS: Nicotine 21 MG PATCH.TD24 TD SCH (07:54)
[2018-03-19] MEDS: Pantoprazole 40 MG VIAL IVP SCH (07:58)
[2018-03-19] MEDS: Insulin LISPRO 300 UNITS/3 ML VIAL SQ SCH ×3 (07:59→16:58)
[2018-03-19] MEDS: Insulin DETEMIR 100 UNIT/ML X5UNITS SQ SCH ×2 (08:50→21:02)
[2018-03-19] MEDS: Fluconazole 100 MG/50 ML 100 MG/50 ML BAG IVPB SCH (08:50)
[2018-03-19] MEDS: Potassium Chloride Elixir 20 MEQ/15 ML UDC PO SCH ×2 (09:46→12:56)
--- NOTE | 2018-03-19 17:36 | Internal Med Progress Note ---
Date of Encounter: 03/19/18 Time of Encounter: 09:15 - Assessment and plan (1) Yeast UTI Current Visit: Yes Status: Acute Assessment and plan: Patient has history of multiple UTIs with Jade. Urinalysis shows many yeast and preliminary urine culture grows yeast species. Although he reports back pain, CT abdomen/pelvis showed no acute intra-abdominal or pelvic abnormalities including pyelonephritis. Continue IV fluconazole for now. We will hold IV Zosyn. (2) DKA (diabetic ketoacidoses) Current Visit: Yes Status: Acute Assessment and plan: Resolved. Continues to have hypokalemia. Blood sugars improved. Diabetic diet as tolerated. Continue subcutaneous basal bolus insulin regimen. Check hemoglobin A1c. Monitor electrolytes closely. Qualifiers: Diabetes mellitus type: type 1 Diabetes mellitus complication detail: without coma Qualified Code(s): E10.10 - Type 1 diabetes mellitus with ketoacidosis without coma (3) Hepatitis C Current Visit: Yes Status: Chronic Qualifiers: Viral hepatitis chronicity: chronic Hepatic coma status: without hepatic coma Qualified Code(s): B18.2 - Chronic viral hepatitis C (4) Acute renal failure Current Visit: Yes Status: Acute Assessment and plan: Secondary to hyperglycemia and dehydration. Serum creatinine improving, 1.47 today. Continue IV hydration and blood sugar control. Qualifiers: Acute renal failure type: unspecified Qualified Code(s): N17.9 - Acute kidney failure, unspecified (5) Hypokalemia due to loss of potassium Current Visit: Yes Status: Acute Assessment and plan: Follow hypokalemia protocol and replace with IV and oral potassium supplements. Monitor potassium and magnesium closely. (6) Tobacco abuse Current Visit: Yes Status: Acute - Time Spent With Patient Total time spent is greater than 50% in coordination of care (as documented) at patient's floor/unit and/or counseling patient: - Subjective Interval history: Reports feeling well. Continues to have abdominal and low back pain. Improved nausea but did have one episode of vomiting earlier this morning. No fever, chills, diarrhea. - Constitutional Vitals: Temp Pulse Resp BP Pulse Ox 97.7 F 74 19 117/85 99 03/19/18 16:00 03/19/18 14:45 03/19/18 14:45 03/19/18 14:45 03/19/18 14:45 General appearance: Present: A&O X 3, answers questions appropriately - Respiratory Respiratory exam: Present: CTAB. Absent: accessory muscle use, rales, rhonchi, wheezes - Cardiovascular Cardiovascular exam: Present: RRR, +S1, +S2. Absent: diastolic murmur, gallop, rubs, systolic murmur - GI/Abdominal GI/Abdominal exam: Present: normal bowel sounds, soft, no peritoneal signs. Absent: distended, tenderness - Extremities Exam Extremities exam: Present: full ROM, warm, radial pulses palpable and symmetrical. Absent: calf tenderness, cyanotic, pedal edema - Neurological Exam Neurological exam: Present: CN II-XII intact, oriented X3, no focal deficits. Absent: pronater drift, facial droop, speech deficit Internal Medicine: Result - Labs CBC & Chem 7: 03/19/18 03:45 03/19/18 15:00 Labs: Short CBC 03/19/18 Range/Units 03:45 WBC 12.4 H (4.3-11.1) K/mcL Hgb 10.9 L D (12.9-16.9) g/dL Hct 30.4 L (37.5-50.1) % Plt Count 182 (140-400) K/mcL BMP 03/18/18 03/18/18 03/19/18 20:43 23:40 03:45 Sodium 129 L 131 L 130 L Potassium 2.4 L* 2.6 L 2.8 L Chloride 97 L 97 L 96 L Carbon Dioxide 25 26 26 BUN 53 H 49 H 42 H Creatinine 1.56 H 1.62 H 1.47 H Glucose 274 H 172 H 128 H Calcium 6.6 L 7.4 L 7.5 L 03/19/18 15:00 Sodium Potassium 2.8 L Chloride Carbon Dioxide BUN Creatinine Glucose Calcium Consult Discharge Plan - Plan Referrals: Michelle Amin, GINA [Primary Care Provider] -
[2018-03-20] MEDS: *HR* Heparin 5,000 UNIT/ML VIAL SQ SCH ×4 (00:33→20:56)
[2018-03-20] MEDS: Ondansetron 4 MG/2 ML VIAL IVP PRN (00:33)
[2018-03-20] MEDS ORDERED: Dextrose Gel 15 GM/37.5 ML TUBE PO PRN ×2 (01:45)
[2018-03-20] MEDS ORDERED: *HR* Dextrose 50 % in Water (Syg) 50 ML SYRINGE IVP PRN (01:45)
[2018-03-20] MEDS ORDERED: OXYCODONE Oral CONC 10 MG/0.5 ML ORAL.SYG SL PRN ×2 (01:45)
[2018-03-20] MEDS ORDERED: Naloxone 0.4 MG/ML INJ IVP PRN (01:45)
[2018-03-20] MEDS ORDERED: D5% in 0.45% NACL 1,000 ML IVC PRN (01:45)
[2018-03-20] MEDS ORDERED: Ondansetron 4 MG/2 ML VIAL IVP PRN (01:45)
[2018-03-20] MEDS ORDERED: D5% in Water 1,000 ML IVC PRN (01:45)
[2018-03-20] MEDS ORDERED: Acetaminophen 325 MG TABLET PO PRN (01:45)
[2018-03-20] MEDS ORDERED: Potassium Phosphate 44 MEQ in 0.9 % Sodium Chloride 250 ML IVPB PRN (01:45)
[2018-03-20] MEDS: Piperacillin/Tazobactam 3.375 GM in 0.9 % Sodium Chloride Mini Bag 100 ML IVPB SCH ×2 (03:56→13:14)
[2018-03-20 04:28] LABS: Basophils % 0.1 %; Eosinophils # 0.1 K/mcL (0.0-0.6); Eosinophils % 1.1 %; Hematocrit 30.4 % (37.5-50.1); Hemoglobin 11.1 g/dL (12.9-16.9); Immature Granulocytes % 0.3 % (0-4); Lymphocytes # 2.1 K/mcL (0.6-4.6); Mean Corpuscular HGB Conc 36.5 g/dL (31.6-35.5); Mean Corpuscular Hemoglobin 29.8 pg (28.0-33.3); Mean Corpuscular Volume 81.7 fL (83.0-100.0); Mean Platelet Volume 10.8 fL (9.4-12.4); Monocytes # 0.8 K/mcL (0.0-1.3); Monocytes % 8.7 %; Neutrophils # 6.1 K/mcL (1.6-8.9); Nucleated Red Blood Cells 0.2 /100 WBC (0); Platelet Count 163 K/mcL (140-400); Red Blood Count 3.72 M/mcL (4.19-5.50); Red Cell Distribution Width 13.4 % (11.5-14.5); Segmented Neutrophils % 66.8 %
[2018-03-20 04:55] LABS: BUN/Creatinine Ratio 17 (6-26); Blood Urea Nitrogen 17 mg/dL (6-20); Calcium 8.1 mg/dL (8.6-10.3); Carbon Dioxide 32 mEq/L (23-29); Chloride 99 mEq/L (98-107); Glucose 87 mg/dL (70-105); Magnesium 1.8 mg/dL (1.6-2.6); Osmolality,Calculated 279 (280-300); Potassium 2.9 mEq/L (3.5-5.1); Sodium 134 mEq/L (136-145); eGFR For African Americans > 60 (> 60); eGFR For Non-African Americans > 60 (> 60)
[2018-03-20] MEDS ORDERED: Pantoprazole 40 MG VIAL IVP SCH (06:30)
[2018-03-20] MEDS: Insulin LISPRO 300 UNITS/3 ML VIAL SQ SCH ×3 (08:17→16:55)
[2018-03-20] MEDS: Nicotine 21 MG PATCH.TD24 TD SCH (08:18)
[2018-03-20] MEDS: Fluconazole 100 MG/50 ML 100 MG/50 ML BAG IVPB SCH (09:44)
[2018-03-20] MEDS: Insulin DETEMIR 100 UNIT/ML X5UNITS SQ SCH ×2 (09:59→20:56)
--- NOTE | 2018-03-20 16:13 | Internal Med Progress Note ---
Date of Encounter: 03/20/18 Time of Encounter: 08:40 - Assessment and plan (1) Yeast UTI Current Visit: Yes Status: Acute Assessment and plan: Patient has history of multiple UTIs with Jade. Urinalysis shows many yeast and preliminary urine culture grows yeast species. Although he reports back pain, CT abdomen/pelvis showed no acute intra-abdominal or pelvic abnormalities including pyelonephritis. Continue IV fluconazole for now. (2) DKA (diabetic ketoacidoses) Current Visit: Yes Status: Resolved Assessment and plan: Resolved. Continues to have hypokalemia. Blood sugars improved. Diabetic diet as tolerated. Continue subcutaneous basal bolus insulin regimen. Check hemoglobin A1c. Monitor electrolytes closely. Qualifiers: Diabetes mellitus type: type 1 Diabetes mellitus complication detail: without coma Qualified Code(s): E10.10 - Type 1 diabetes mellitus with ketoacidosis without coma (3) Hepatitis C Current Visit: Yes Status: Chronic Qualifiers: Viral hepatitis chronicity: chronic Hepatic coma status: without hepatic coma Qualified Code(s): B18.2 - Chronic viral hepatitis C (4) Acute renal failure Current Visit: Yes Status: Resolved Assessment and plan: Secondary to hyperglycemia and dehydration. Serum creatinine normalized with IV hydration and blood sugar control. Qualifiers: Acute renal failure type: unspecified Qualified Code(s): N17.9 - Acute kidney failure, unspecified (5) Hypokalemia due to loss of potassium Current Visit: Yes Status: Acute Assessment and plan: Follow hypokalemia protocol and replace with IV potassium supplements. Monitor potassium and magnesium closely. (6) Tobacco abuse Current Visit: Yes Status: Chronic - Time Spent With Patient Total time spent is greater than 50% in coordination of care (as documented) at patient's floor/unit and/or counseling patient: - Subjective Interval history: Reports feeling well. Continues to report abdominal and low back pain. No nausea, vomiting; tolerates diet; No fever, chills, diarrhea. - Constitutional Vitals: Temp Pulse Resp BP Pulse Ox 98.0 F 82 18 137/86 100 03/20/18 14:43 03/20/18 14:43 03/20/18 14:43 03/20/18 14:43 03/20/18 14:43 General appearance: Present: A&O X 3, answers questions appropriately - Respiratory Respiratory exam: Present: CTAB. Absent: accessory muscle use, rales, rhonchi, wheezes - Cardiovascular Cardiovascular exam: Present: RRR, +S1, +S2. Absent: diastolic murmur, gallop, rubs, systolic murmur - GI/Abdominal GI/Abdominal exam: Present: normal bowel sounds, soft, no peritoneal signs. Absent: distended, tenderness Internal Medicine: Result - Labs CBC & Chem 7: 03/20/18 04:02 03/20/18 04:00 Labs: Short CBC 03/20/18 Range/Units 04:02 WBC 9.2 (4.3-11.1) K/mcL Hgb 11.1 L (12.9-16.9) g/dL Hct 30.4 L (37.5-50.1) % Plt Count 163 (140-400) K/mcL Neutrophils # 6.1 (1.6-8.9) K/mcL BMP 03/20/18 03/20/18 01:05 04:00 Sodium 134 L Potassium 3.2 L 2.9 L Chloride 99 Carbon Dioxide 32 H BUN 17 Creatinine 0.98 Glucose 87 Calcium 8.1 L Consult Discharge Plan - Plan Referrals: Michelle Amin, [employer] [Primary Care Provider] -
[2018-03-20] MEDS ORDERED: *HR* OxyCODONE Immed Rel 5 MG TABLET PO PRN (16:19)
[2018-03-20 16:34] LABS: Magnesium 1.9 mg/dL (1.6-2.6); Potassium 2.8 mEq/L (3.5-5.1)
[2018-03-21 04:22] LABS: BUN/Creatinine Ratio 8 (6-26); Blood Urea Nitrogen 7 mg/dL (6-20); Calcium 8.2 mg/dL (8.6-10.3); Carbon Dioxide 30 mEq/L (23-29); Chloride 103 mEq/L (98-107); Glucose 72 mg/dL (70-105); Magnesium 1.7 mg/dL (1.6-2.6); Osmolality,Calculated 281 (280-300); Phosphorous 1.1 mg/dL (2.7-4.5); Potassium 3.2 mEq/L (3.5-5.1); Sodium 137 mEq/L (136-145); eGFR For African Americans > 60 (> 60); eGFR For Non-African Americans > 60 (> 60)
[2018-03-21] MEDS: *HR* Heparin 5,000 UNIT/ML VIAL SQ SCH ×2 (05:21→14:00)
[2018-03-21] MEDS: Nicotine 21 MG PATCH.TD24 TD SCH (08:17)
[2018-03-21] MEDS: Insulin LISPRO 300 UNITS/3 ML VIAL SQ SCH ×2 (08:18→12:28)
[2018-03-21] MEDS: Fluconazole 100 MG/50 ML 100 MG/50 ML BAG IVPB SCH (08:21)
[2018-03-21] MEDS: Insulin DETEMIR 100 UNIT/ML X5UNITS SQ SCH (08:21)
[2018-03-21 09:31] LABS: Estimated Average Glucose 372 mg/dl; Hemoglobin A1C 14.6 %
[2018-03-21] MEDS ORDERED: Potassium Phosphate 44 MEQ in 0.9 % Sodium Chloride 250 ML IVPB ONE (10:32)
[2018-03-21 12:20] VITALS: BP 122/81
--- NOTE | 2018-03-21 15:11 | Discharge Summary ---
- NOTES TO OUTPATIENT PROVIDER Notes to Outpatient Provider: DKA, UTI with recurrent Jade in urine culture; needs Urology f/up Date of Encounter: 03/21/18 Time of Encounter: 11:30 - Discharge Diagnosis (1) Yeast UTI Priority: Primary Status: Acute (2) DKA (diabetic ketoacidoses) Priority: Primary Status: Resolved Qualifiers: Diabetes mellitus type: type 1 Diabetes mellitus complication detail: without coma Qualified Code(s): E10.10 - Type 1 diabetes mellitus with ketoacidosis without coma (3) Hepatitis C Priority: Secondary Status: Chronic Qualifiers: Viral hepatitis chronicity: chronic Hepatic coma status: without hepatic coma Qualified Code(s): B18.2 - Chronic viral hepatitis C (4) Acute renal failure Priority: Primary Status: Resolved Qualifiers: Acute renal failure type: unspecified Qualified Code(s): N17.9 - Acute kidney failure, unspecified (5) Hypokalemia due to loss of potassium Priority: Primary Status: Acute (6) Tobacco abuse Priority: Secondary Status: Chronic Hospital course: Mr. Ortega is a 37 year old male with type 1 diabetes, who was admitted with nausea, vomiting, abdominal pain and diarrhea. Patient was noted to have possible viral gastroenteritis, which subsequently improved. He also had diabetic ketoacidosis at admission, was started on IV insulin drip protocol, admitted to ICU. His anion gap closed and blood sugars improved by the next day. Patient was also noted to have multiple electrolyte abnormalities- hypokalemia, hypomagnesemia, hypophosphatemia likely due to significant GI losses and poor oral intake. He was appropriately supplemented for this. CT abdomen/pelvis showed no acute abnormality or obstructing renal stones. Urine culture grew Jade albicans and he does have history of recurrent yeast UTIs. He is being discharged on fluconazole to complete a 10 day course and is encouraged to follow up with urology due to recurrent yeast infections. Discharge discussed with: patient, nurse - Time Spent with Patient Total time spent providing and/or coordinating discharge services: Greater than 30 minutes (40 min) - Discharge Medications Prescriptions: Fluconazole [Diflucan] 100 mg PO DAILY #7 tablet Phos-NaK [Neutra-Phos] 1 each PO BID #10 powd.pack Potassium Chloride 20 meq PO DAILY #5 tab.er.prt Home Medications: Subcutaneous Insulin Pump [T:Slim] 1 each MC AD 03/18/18 [History] Fluconazole [Diflucan] 100 mg PO DAILY #7 tablet 03/21/18 [Rx] Phos-NaK [Neutra-Phos] 1 each PO BID #10 powd.pack 03/21/18 [Rx] Potassium Chloride 20 meq PO DAILY #5 tab.er.prt 03/21/18 [Rx] Allergies/Adverse Reactions: 3 Allergy/AdvReac Type Severity Reaction Status Date / Time No Known Allergies Allergy Verified 01/22/18 09:32 Date of admission: 03/18/18 13:05 Primary care physician: Michelle Amin CNP Consults: 03/18/18 17:56 Consult for Pharmacy Education [CONS] Routine Reason for Consult: DKA Call Completed: No Consult to Endocrinology [CONS] Routine Consulting Provider: [facility] Reason for Consult: DKA Call Completed: No Discharging clinician: Sylvia Bennett Anticipated date of discharge: 03/21/18 - Constitutional Vitals: Temp Pulse Resp BP Pulse Ox 98.6 F 74 16 122/81 100 03/21/18 12:19 03/21/18 12:19 03/21/18 12:19 03/21/18 12:19 03/21/18 12:19 General appearance: Present: A&O X 3, answers questions appropriately - Cardiovascular Cardiovascular exam: Present: RRR, +S1, +S2. Absent: diastolic murmur, gallop, rubs, systolic murmur - Patient Status Disposition: Home, Self-Care Condition: Good Functional capacity at discharge: independent ambulation Overall status at discharge: patient is progressing back to baseline - Discharge Instructions Instructions: Potassium Chloride (By mouth), Fluconazole (By mouth), Phosphate Supplement (By mouth), Hypokalemia (DC), Diabetic Ketoacidosis (DC) Follow Up With: Michelle Amin CNP [Primary Care Provider] - 03/29/18 4:00 pm Perico Michelle MD [Partnered Physician] - 04/04/18 9:30 am Additional Instructions: F/up with PCP in 1-2 weeks F/up with Urology in 2-3 weeks - Diet and Activity Activity: resume usual activities as tolerated Diet: diabetic diet
== END 2018-03-21 16:41 | disposition home or self-care (01) | DRG 420 ==
LOC: ICNU 08:30 → EMEROO 08:30 → SUATTDRO 13:05 → ICNU 13:30 → 3ANU 03-20 14:51
PROVIDERS: ADMIT Internal Medicine; ATTEND Internal Medicine

== ENCOUNTER 2020-05-22 08:40 | Observation (INO) ==
[2020-05-22] MEDS ORDERED: Ondansetron 4 MG/2 ML VIAL IVP STA (08:49)
[2020-05-22] MEDS ORDERED: 0.9 % Sodium Chloride 1,000 ML IVC SCH ×2 (09:00→11:30)
[2020-05-22 09:32] LABS: VBG HCO3 47 mEq/L (21-27); VBG PCO2 54 mmHg (41-51); VBG PH 7.55 pH Units (7.32-7.42); VBG PO2 47 mmHg (25-50)
[2020-05-22 09:41] LABS: Basophils % 0.3 %; Eosinophils # 0.1 K/mcL (0.0-0.6); Eosinophils % 1.1 %; Hemoglobin 14.4 g/dL (12.9-16.9); Immature Granulocytes % 0.5 % (0-4); Lymphocytes # 1.5 K/mcL (0.6-4.6); Lymphocytes % 14.5 %; Mean Corpuscular HGB Conc 33.5 g/dL (31.6-35.5); Mean Corpuscular Volume 80.7 fL (83.0-100.0); Mean Platelet Volume 11.4 fL (9.4-12.4); Monocytes # 1.5 K/mcL (0.0-1.3); Monocytes % 14.4 %; Neutrophils # 7.3 K/mcL (1.6-8.9); Platelet Count 219 K/mcL (140-400); Red Blood Count 5.33 M/mcL (4.19-5.50); Red Cell Distribution Width 13.9 % (11.5-14.5); Segmented Neutrophils % 69.2 %; White Blood Count 10.6 K/mcL (4.3-11.1)
[2020-05-22 10:03] LABS: Troponin I 0.04 ng/mL (< 0.04)
[2020-05-22 10:24] LABS: BUN/Creatinine Ratio 22 (6-26); Blood Urea Nitrogen 34 mg/dL (6-20); Chloride 72 mEq/L (98-107); Glucose 192 mg/dL (70-105); Magnesium 2.2 mg/dL (1.6-2.6); Osmolality,Calculated 279 (280-300); Sodium 128 mEq/L (136-145); eGFR For African Americans > 60 (> 60); eGFR For Non-African Americans 52 (> 60)
[2020-05-22] MEDS ORDERED: Potassium Effervescent 25 MEQ TABLET.EFF PO ONE (10:29)
[2020-05-22 10:51] LABS: VBG HCO3 43 mEq/L (21-27); VBG PCO2 58 mmHg (41-51); VBG PH 7.48 pH Units (7.32-7.42); VBG PO2 112 mmHg (25-50)
[2020-05-22 11:11] LABS: BUN/Creatinine Ratio 24 (6-26); Blood Urea Nitrogen 32 mg/dL (6-20); Calcium 8.8 mg/dL (8.6-10.3); Carbon Dioxide 42 mEq/L (23-29); Chloride 81 mEq/L (98-107); Glucose 169 mg/dL (70-105); Osmolality,Calculated 281 (280-300); Potassium 2.3 mEq/L (3.5-5.1); Sodium 130 mEq/L (136-145); eGFR For African Americans > 60 (> 60); eGFR For Non-African Americans 59 (> 60)
[2020-05-22] MEDS ORDERED: Ondansetron 4 MG/2 ML VIAL IVP PRN (11:22)
[2020-05-22] MEDS ORDERED: Naloxone 0.4 MG/ML INJ IVP PRN (11:22)
[2020-05-22] MEDS ORDERED: Potassium Chloride 40 MEQ, Lidocaine 1% 2 ML in 0.9 % Sodium Chloride 500 ML IVPB ONE (11:25)
[2020-05-22] MEDS ORDERED: Dextrose Gel 15 GM/37.5 ML TUBE PO PRN ×2 (11:26)
[2020-05-22] MEDS ORDERED: *HR* Dextrose 50 % in Water (Vial) 50 ML VIAL IVP PRN (11:26)
[2020-05-22] MEDS ORDERED: D5% in Water 1,000 ML IVC PRN (11:26)
[2020-05-22] MEDS ORDERED: D5% in 0.45% NACL w KCl 30 MEQ/1,000 ML MLS IVC SCH (11:30)
[2020-05-22] MEDS: 0.9 % Sodium Chloride w KCl 40 MEQ/1,000 ML MLS IVC SCH ×2 (12:24→21:49)
[2020-05-22] MEDS: Insulin LISPRO 300 UNITS/3 ML VIAL SQ SCH ×2 (14:18→17:07)
[2020-05-22 15:07] LABS: Bacteria,Urine Few per hpf (None-Few); Bilirubin,Urine Negative (Negative); Blood,Urine Negative (Negative); Clarity,Urine Clear (Clear); Color,Urine Light-Yellow (Yellow); Glucose,Urine (UA) 50 mg/dL (Normal); Ketones,Urine Negative (Negative); Leukocyte Esterase,Urine Small (Negative); Nitrite,Urine Negative (Negative); Protein,Urine 50 mg/dL (Neg-Trace); Specific Gravity,Urine 1.015 (1.010-1.025)
[2020-05-22 15:24] LABS: Amphetamine Screen,Urine Negative ng/mL (Cutoff=1000); Barbiturate Screen,Urine Negative ng/mL (Cutoff=200); Benzodiazepines Screen,Urine Negative ng/mL (Cutoff=200); Cannabinoid Screen,Urine Positive ng/mL (Cutoff = 50); Cocaine Screen,Urine Negative ng/mL (Cutoff= 300); Opiate Screen,Urine Negative ng/mL (Cutoff=300); Phencyclidine Screen,Urine Negative ng/mL (Cutoff=25)
[2020-05-22 16:43] LABS: BUN/Creatinine Ratio 21 (6-26); Blood Urea Nitrogen 30 mg/dL (6-20); Calcium 8.7 mg/dL (8.6-10.3); Carbon Dioxide 43 mEq/L (23-29); Chloride 79 mEq/L (98-107); Glucose 366 mg/dL (70-105); Osmolality,Calculated 285 (280-300); Sodium 127 mEq/L (136-145); eGFR For African Americans > 60 (> 60); eGFR For Non-African Americans 54 (> 60)
[2020-05-22] MEDS: *HR* Heparin 5,000 UNIT/ML VIAL SQ SCH (17:07)
[2020-05-22] MEDS: Nicotine 7 MG PATCH.TD24 TD SCH (17:08)
[2020-05-22] MEDS ORDERED: Potassium Chloride Elixir 20 MEQ/15 ML UDC PO ONE (19:00)
[2020-05-22] MEDS ORDERED: Insulin DETEMIR 100 UNIT/ML X5UNITS SQ SCH (21:00)
[2020-05-22] MEDS: Lactobacillus 1 EACH CAP.SPRINK PO SCH (23:36)
[2020-05-23 06:12] LABS: Basophils % 0.3 %; Eosinophils # 0.2 K/mcL (0.0-0.6); Hematocrit 32.4 % (37.5-50.1); Immature Granulocytes % 0.8 % (0-4); Lymphocytes # 2.3 K/mcL (0.6-4.6); Lymphocytes % 28.7 %; Mean Corpuscular HGB Conc 32.7 g/dL (31.6-35.5); Mean Corpuscular Volume 82.4 fL (83.0-100.0); Mean Platelet Volume 11.5 fL (9.4-12.4); Monocytes # 1.4 K/mcL (0.0-1.3); Monocytes % 17.3 %; Neutrophils # 4.1 K/mcL (1.6-8.9); Platelet Count 204 K/mcL (140-400); Red Blood Count 3.93 M/mcL (4.19-5.50); Red Cell Distribution Width 14.5 % (11.5-14.5); Segmented Neutrophils % 50.9 %
[2020-05-23 06:13] LABS: Hemoglobin 10.6 g/dL (12.9-16.9)
[2020-05-23] MEDS: *HR* Heparin 5,000 UNIT/ML VIAL SQ SCH ×2 (06:13→17:49)
[2020-05-23 06:39] LABS: BUN/Creatinine Ratio 19 (6-26); Blood Urea Nitrogen 26 mg/dL (6-20); Calcium 8.6 mg/dL (8.6-10.3); Carbon Dioxide 36 mEq/L (23-29); Chloride 92 mEq/L (98-107); Glucose 325 mg/dL (70-105); Osmolality,Calculated 289 (280-300); Potassium 4.2 mEq/L (3.5-5.1); Sodium 131 mEq/L (136-145); eGFR For African Americans > 60 (> 60); eGFR For Non-African Americans 58 (> 60)
[2020-05-23] MEDS: Lactobacillus 1 EACH CAP.SPRINK PO SCH ×2 (07:51→21:29)
[2020-05-23] MEDS: Nicotine 7 MG PATCH.TD24 TD SCH (07:51)
[2020-05-23] MEDS: Insulin LISPRO 300 UNITS/3 ML VIAL SQ SCH ×3 (07:51→17:49)
[2020-05-23] MEDS ORDERED: Nicotine 14 MG PATCH.TD24 TD SCH (09:00)
[2020-05-23] MEDS ORDERED: Insulin DETEMIR 100 UNIT/ML X5UNITS SQ SCH (10:45)
[2020-05-23] MEDS: Ringers Solution, Lactated 1,000 ML IVC SCH ×2 (11:38→21:29)
[2020-05-23 13:24] LABS: Potassium 2.5 mEq/L (3.5-5.1)
[2020-05-23 13:25] LABS: Carbon Dioxide > 45 mEq/L (23-29)
[2020-05-23] MEDS ORDERED: Insulin LISPRO 300 UNITS/3 ML VIAL SQ SCH (21:00)
[2020-05-23] MEDS: Insulin DETEMIR 100 UNIT/ML X5UNITS SQ SCH (21:29)
[2020-05-24 02:50] LABS: Hematocrit 31.8 % (37.5-50.1); Hemoglobin 10.4 g/dL (12.9-16.9)
[2020-05-24 03:16] LABS: BUN/Creatinine Ratio 18 (6-26); Blood Urea Nitrogen 19 mg/dL (6-20); Calcium 8.6 mg/dL (8.6-10.3); Carbon Dioxide 28 mEq/L (23-29); Chloride 98 mEq/L (98-107); Glucose 240 mg/dL (70-105); Osmolality,Calculated 286 (280-300); Potassium 3.8 mEq/L (3.5-5.1); Sodium 133 mEq/L (136-145); eGFR For African Americans > 60 (> 60); eGFR For Non-African Americans > 60 (> 60)
[2020-05-24] MEDS: *HR* Heparin 5,000 UNIT/ML VIAL SQ SCH (05:58)
[2020-05-24 07:53] VITALS: BP 145/92
[2020-05-24 08:05] LABS: Estimated Average Glucose 194 mg/dl
[2020-05-24] MEDS: Insulin LISPRO 300 UNITS/3 ML VIAL SQ SCH (08:35)
[2020-05-24] MEDS: Insulin DETEMIR 100 UNIT/ML X5UNITS SQ SCH (10:35)
[2020-05-24] MEDS: Lactobacillus 1 EACH CAP.SPRINK PO SCH (10:35)
== END 2020-05-24 11:34 | disposition home or self-care (01) ==
LOC: EMEROOARM 08:40 → 2ANU 08:40 → SUATTDRO 11:22 → 2ANU 14:11
PROVIDERS: ADMIT Internal Medicine; ATTEND Internal Medicine

== ENCOUNTER 2020-08-16 18:21 | Observation (INO) ==
[2020-08-16] MEDS: 0.9 % Sodium Chloride 1,000 ML IVC SCH ×2 (19:37→19:38)
[2020-08-16] MEDS ORDERED: Ondansetron 4 MG/2 ML VIAL IVP ONE (19:47)
[2020-08-16] MEDS ORDERED: Ondansetron 4 MG/2 ML VIAL ONE (19:49)
[2020-08-16 19:50] LABS: Basophils % 0.2 %; Hematocrit 34.7 % (37.5-50.1); Hemoglobin 11.2 g/dL (12.9-16.9); Immature Granulocytes % 0.5 % (0-4); Lymphocytes # 1.1 K/mcL (0.6-4.6); Lymphocytes % 8.4 %; Mean Corpuscular HGB Conc 32.3 g/dL (31.6-35.5); Mean Corpuscular Hemoglobin 26.9 pg (28.0-33.3); Mean Corpuscular Volume 83.4 fL (83.0-100.0); Mean Platelet Volume 10.5 fL (9.4-12.4); Monocytes # 0.8 K/mcL (0.0-1.3); Monocytes % 6.6 %; Neutrophils # 10.7 K/mcL (1.6-8.9); Platelet Count 239 K/mcL (140-400); Red Blood Count 4.16 M/mcL (4.19-5.50); Red Cell Distribution Width 15.3 % (11.5-14.5); Segmented Neutrophils % 84.3 %; White Blood Count 12.7 K/mcL (4.3-11.1)
[2020-08-16 19:52] LABS: VBG HCO3 29 mEq/L (21-27); VBG PCO2 44 mmHg (41-51); VBG PH 7.42 pH Units (7.32-7.42); VBG PO2 70 mmHg (25-50)
[2020-08-16 20:13] LABS: BUN/Creatinine Ratio 20 (6-26); Blood Urea Nitrogen 26 mg/dL (6-20); Calcium 9.6 mg/dL (8.6-10.3); Carbon Dioxide 30 mEq/L (23-29); Chloride 95 mEq/L (98-107); Glucose 260 mg/dL (70-105); Osmolality,Calculated 296 (280-300); Potassium 3.3 mEq/L (3.5-5.1); Sodium 136 mEq/L (136-145); eGFR For African Americans > 60 (> 60); eGFR For Non-African Americans > 60 (> 60)
[2020-08-16] MEDS ORDERED: Pantoprazole 40 MG VIAL IVP ONE (21:38)
[2020-08-16] MEDS ORDERED: Ampicillin/Sulbactam 3,000 MG in 0.9 % Sodium Chloride Mini Bag 100 ML IVPB ONE (21:38)
[2020-08-16] MEDS ORDERED: Naloxone 0.4 MG/ML INJ IVP PRN (22:02)
[2020-08-16] MEDS ORDERED: Ondansetron 4 MG/2 ML VIAL IVP PRN (22:02)
[2020-08-16] MEDS ORDERED: D5% in Water 1,000 ML IVC PRN (22:17)
[2020-08-16] MEDS ORDERED: *HR* Dextrose 50 % in Water (Vial) 50 ML VIAL IVP PRN (22:17)
[2020-08-16] MEDS ORDERED: Dextrose Gel 15 GM/37.5 ML TUBE PO PRN ×2 (22:17)
[2020-08-16] MEDS ORDERED: Ringers Solution, Lactated 1,000 ML IVC SCH (22:30)
[2020-08-16] MEDS ORDERED: Potassium Chloride 40 MEQ, Lidocaine 1% 2 ML in 0.9 % Sodium Chloride 500 ML IVPB ONE (23:00)
[2020-08-16] MEDS ORDERED: Prochlorperazine 10 MG/2 ML VIAL IVP ONE (23:16)
[2020-08-17] MEDS: MetroNIDAZOLE 500 MG/100 ML 500 MG/100 ML BAG IVPB SCH ×4 (00:16→23:34)
[2020-08-17] MEDS: Insulin LISPRO 300 UNITS/3 ML VIAL SQ SCH ×6 (00:58→16:33)
[2020-08-17 02:07] LABS: Basophils % 0.1 %; Hematocrit 31.1 % (37.5-50.1); Hemoglobin 10.1 g/dL (12.9-16.9); Immature Granulocytes % 0.5 % (0-4); Lymphocytes # 1.4 K/mcL (0.6-4.6); Lymphocytes % 10.7 %; Mean Corpuscular HGB Conc 32.5 g/dL (31.6-35.5); Mean Corpuscular Hemoglobin 27.2 pg (28.0-33.3); Mean Corpuscular Volume 83.6 fL (83.0-100.0); Mean Platelet Volume 10.4 fL (9.4-12.4); Monocytes # 1.3 K/mcL (0.0-1.3); Monocytes % 10.1 %; Platelet Count 192 K/mcL (140-400); Red Blood Count 3.72 M/mcL (4.19-5.50); Red Cell Distribution Width 15.5 % (11.5-14.5); Segmented Neutrophils % 78.6 %; White Blood Count 12.8 K/mcL (4.3-11.1)
[2020-08-17 02:28] LABS: Alanine Aminotransferase 19 Units/L (7-52); Albumin 4.1 g/dL (3.5-5.7); Albumin/Globulin Ratio 1.6 (1.1-2.2); Alkaline Phosphatase 68 Units/L (34-104); Aspartate Amino Transferase 24 Units/L (13-39); BUN/Creatinine Ratio 21 (6-26); Bilirubin,Direct 0.1 mg/dL (0.0-0.2); Bilirubin,Indirect 0.4 mg/dL (0.0-1.0); Bilirubin,Total 0.5 mg/dL (0.3-1.0); Blood Urea Nitrogen 24 mg/dL (6-20); Calcium 8.3 mg/dL (8.6-10.3); Carbon Dioxide 27 mEq/L (23-29); Chloride 100 mEq/L (98-107); Globulin 2.5 g/dL (2.4-3.5); Glucose 194 mg/dL (70-105); Magnesium 1.8 mg/dL (1.6-2.6); Osmolality,Calculated 295 (280-300); Phosphorous 3.2 mg/dL (2.7-4.5); Potassium 3.4 mEq/L (3.5-5.1); Sodium 138 mEq/L (136-145); Total Protein 6.6 g/dL (6.4-8.9); eGFR For African Americans > 60 (> 60); eGFR For Non-African Americans > 60 (> 60)
[2020-08-17] MEDS ORDERED: Potassium Chloride 40 MEQ, Lidocaine 1% 2 ML in 0.9 % Sodium Chloride 500 ML IVPB ONE (05:00)
[2020-08-17] MEDS ORDERED: Prochlorperazine 10 MG/2 ML VIAL IVP PRN (06:00)
[2020-08-17] MEDS ORDERED: Pantoprazole 40 MG VIAL IVP SCH (06:30)
[2020-08-17] MEDS ORDERED: Insulin DETEMIR 100 UNIT/ML X5UNITS SQ SCH ×2 (09:00→21:00)
[2020-08-17 09:31] LABS: Estimated Average Glucose 194 mg/dl
[2020-08-17] MEDS: Sucralfate 1 GM TABLET PO SCH (17:20)
[2020-08-17] MEDS: Pantoprazole 40 MG VIAL IVP SCH (20:44)
[2020-08-18] MEDS: Ondansetron 4 MG/2 ML VIAL IVP PRN ×3 (05:58→21:13)
[2020-08-18 06:13] LABS: Hematocrit 35.5 % (37.5-50.1); Hemoglobin 11.5 g/dL (12.9-16.9); Mean Corpuscular HGB Conc 32.4 g/dL (31.6-35.5); Mean Corpuscular Hemoglobin 26.6 pg (28.0-33.3); Mean Corpuscular Volume 82.2 fL (83.0-100.0); Mean Platelet Volume 10.6 fL (9.4-12.4); Platelet Count 211 K/mcL (140-400); Red Blood Count 4.32 M/mcL (4.19-5.50); Red Cell Distribution Width 14.9 % (11.5-14.5); White Blood Count 11.7 K/mcL (4.3-11.1)
[2020-08-18 06:38] LABS: % Iron Saturation 15 % (20-55); BUN/Creatinine Ratio 18 (6-26); Blood Urea Nitrogen 21 mg/dL (6-20); Calcium 8.6 mg/dL (8.6-10.3); Carbon Dioxide 25 mEq/L (23-29); Chloride 93 mEq/L (98-107); Glucose 246 mg/dL (70-105); Iron 66 mcg/dL (65-175); Magnesium 1.8 mg/dL (1.6-2.6); Osmolality,Calculated 285 (280-300); Potassium 3.3 mEq/L (3.5-5.1); Sodium 132 mEq/L (136-145); Transferrin 314 mg/dL (203-362); eGFR For African Americans > 60 (> 60); eGFR For Non-African Americans > 60 (> 60)
[2020-08-18 06:53] LABS: Folate 17.1 ng/mL (3.0-16.0)
[2020-08-18 07:06] LABS: Ferritin < 8 ng/mL (20-250)
[2020-08-18] MEDS: Sucralfate 1 GM TABLET PO SCH ×3 (07:50→16:19)
[2020-08-18] MEDS: Insulin LISPRO 300 UNITS/3 ML VIAL SQ SCH ×6 (07:51→16:20)
[2020-08-18] MEDS: MetroNIDAZOLE 500 MG/100 ML 500 MG/100 ML BAG IVPB SCH ×3 (07:51→23:52)
[2020-08-18] MEDS: Pantoprazole 40 MG VIAL IVP SCH ×2 (07:51→21:13)
[2020-08-18] MEDS ORDERED: Iron Sucrose Complex 400 MG in 0.9 % Sodium Chloride 250 ML IVPB ONE (08:23)
[2020-08-18] MEDS ORDERED: Insulin DETEMIR 100 UNIT/ML X5UNITS SQ SCH (21:00)
[2020-08-19 05:51] LABS: Hematocrit 33.6 % (37.5-50.1); Hemoglobin 10.9 g/dL (12.9-16.9); Mean Corpuscular HGB Conc 32.4 g/dL (31.6-35.5); Mean Corpuscular Hemoglobin 26.6 pg (28.0-33.3); Mean Platelet Volume 12.2 fL (9.4-12.4); Platelet Count 160 K/mcL (140-400); Red Cell Distribution Width 14.6 % (11.5-14.5); White Blood Count 10.9 K/mcL (4.3-11.1)
[2020-08-19 05:56] LABS: BUN/Creatinine Ratio 13 (6-26); Blood Urea Nitrogen 14 mg/dL (6-20); Calcium 8.3 mg/dL (8.6-10.3); Carbon Dioxide 27 mEq/L (23-29); Chloride 95 mEq/L (98-107); Glucose 94 mg/dL (70-105); Magnesium 1.9 mg/dL (1.6-2.6); Osmolality,Calculated 272 (280-300); Phosphorous 1.8 mg/dL (2.7-4.5); Potassium 3.6 mEq/L (3.5-5.1); Sodium 131 mEq/L (136-145); eGFR For African Americans > 60 (> 60); eGFR For Non-African Americans > 60 (> 60)
[2020-08-19] MEDS: Insulin LISPRO 300 UNITS/3 ML VIAL SQ SCH ×4 (08:00→12:46)
[2020-08-19] MEDS: Sucralfate 1 GM TABLET PO SCH ×2 (08:03→12:45)
[2020-08-19] MEDS ORDERED: Potassium Phosphate 44 MEQ in 0.9 % Sodium Chloride 250 ML IVPB ONE (08:03)
[2020-08-19] MEDS: Pantoprazole 40 MG VIAL IVP SCH (08:03)
[2020-08-19] MEDS: MetroNIDAZOLE 500 MG/100 ML 500 MG/100 ML BAG IVPB SCH (08:03)
[2020-08-19 12:09] VITALS: BP 147/93
== END 2020-08-19 17:15 | disposition home or self-care (01) ==
LOC: 3ANU 18:21 → EMEROOARM 18:21 → SUATTDRO 22:55 → 3ANU 23:32
PROVIDERS: ADMIT Family Medicine; ATTEND Internal Medicine

== ENCOUNTER 2020-10-16 12:51 | Observation (INO) ==
[2020-10-16] MEDS: 0.9 % Sodium Chloride 1,000 ML IVC SCH ×2 (13:18→14:29)
[2020-10-16 13:27] LABS: Basophils % 0.1 %; Eosinophils % 0.1 %; Hematocrit 34.6 % (37.5-50.1); Immature Granulocytes % 0.4 % (0-4); Lymphocytes # 0.9 K/mcL (0.6-4.6); Lymphocytes % 5.9 %; Mean Corpuscular Hemoglobin 29.4 pg (28.0-33.3); Mean Platelet Volume 10.1 fL (9.4-12.4); Monocytes # 0.9 K/mcL (0.0-1.3); Monocytes % 6.3 %; Neutrophils # 12.8 K/mcL (1.6-8.9); Platelet Count 170 K/mcL (140-400); Red Blood Count 4.12 M/mcL (4.19-5.50); Red Cell Distribution Width 15.5 % (11.5-14.5); Segmented Neutrophils % 87.2 %; White Blood Count 14.7 K/mcL (4.3-11.1)
[2020-10-16 13:29] LABS: Hemoglobin 12.1 g/dL (12.9-16.9)
[2020-10-16 13:39] LABS: VBG HCO3 29 mEq/L (21-27); VBG PCO2 39 mmHg (41-51); VBG PH 7.47 pH Units (7.32-7.42); VBG PO2 87 mmHg (25-50)
[2020-10-16 13:49] LABS: Alanine Aminotransferase 35 Units/L (7-52); Albumin 4.5 g/dL (3.5-5.7); Albumin/Globulin Ratio 1.6 (1.1-2.2); Alkaline Phosphatase 101 Units/L (34-104); Aspartate Amino Transferase 23 Units/L (13-39); BUN/Creatinine Ratio 27 (6-26); Bilirubin,Total 0.5 mg/dL (0.3-1.0); Blood Urea Nitrogen 48 mg/dL (6-20); Calcium 9.1 mg/dL (8.6-10.3); Carbon Dioxide 26 mEq/L (23-29); Chloride 79 mEq/L (98-107); Globulin 2.8 g/dL (2.4-3.5); Glucose 414 mg/dL (70-105); Magnesium 2.5 mg/dL (1.6-2.6); Osmolality,Calculated 292 (280-300); Potassium 2.9 mEq/L (3.5-5.1); Sodium 126 mEq/L (136-145); Total Protein 7.3 g/dL (6.4-8.9); Troponin I < 0.03 ng/mL (< 0.04); eGFR For African Americans 52 (> 60); eGFR For Non-African Americans 43 (> 60)
[2020-10-16] MEDS ORDERED: Potassium Chloride 40 MEQ, Lidocaine 1% 2 ML in 0.9 % Sodium Chloride 500 ML IVPB ONE (13:52)
[2020-10-16] MEDS ORDERED: Potassium Chloride Elixir 20 MEQ/15 ML UDC PO ONE (13:53)
[2020-10-16] MEDS ORDERED: 0.9 % Sodium Chloride w KCl 20 MEQ/1,000 ML MLS IVC SCH (14:00)
[2020-10-16] MEDS ORDERED: Insulin Human Regular 100 UNIT in 0.9 % Sodium Chloride 100 ML IVC SCH ×2 (16:00→21:00)
[2020-10-16] MEDS ORDERED: Insulin Regular, Human 100 UNIT/ML IV PRN ×2 (16:34→17:00)
[2020-10-16] MEDS ORDERED: *HR* Dextrose 50 % in Water (Vial) 50 ML VIAL IVP PRN (16:34)
[2020-10-16] MEDS ORDERED: Naloxone 0.4 MG/ML INJ IVP PRN (16:48)
[2020-10-16 17:33] LABS: BUN/Creatinine Ratio 27 (6-26); Blood Urea Nitrogen 42 mg/dL (6-20); Calcium 7.8 mg/dL (8.6-10.3); Carbon Dioxide 24 mEq/L (23-29); Chloride 88 mEq/L (98-107); Glucose 349 mg/dL (70-105); Osmolality,Calculated 292 (280-300); Potassium 3.9 mEq/L (3.5-5.1); Sodium 129 mEq/L (136-145); eGFR For African Americans > 60 (> 60); eGFR For Non-African Americans 51 (> 60)
[2020-10-16] MEDS: Nicotine 14 MG PATCH.TD24 TD SCH ×2 (18:20→18:29)
[2020-10-16] MEDS: Pantoprazole 40 MG VIAL IVP SCH (18:21)
[2020-10-16] MEDS: 0.9 % Sodium Chloride w KCl 20 MEQ/1,000 ML MLS IVC SCH ×2 (18:21→20:57)
[2020-10-16] MEDS: Ondansetron 4 MG/2 ML VIAL IVP PRN (20:21)
[2020-10-16] MEDS: *HR* Heparin 5,000 UNIT/ML VIAL SQ SCH (20:21)
[2020-10-16] MEDS: D5% in 0.45% NACL w KCl 20 MEQ/1,000 ML MLS IVC PRN (20:52)
[2020-10-16 21:07] LABS: BUN/Creatinine Ratio 25 (6-26); Blood Urea Nitrogen 36 mg/dL (6-20); Calcium 7.7 mg/dL (8.6-10.3); Carbon Dioxide 31 mEq/L (23-29); Chloride 96 mEq/L (98-107); Glucose 208 mg/dL (70-105); Osmolality,Calculated 292 (280-300); Potassium 3.4 mEq/L (3.5-5.1); Sodium 134 mEq/L (136-145); eGFR For African Americans > 60 (> 60); eGFR For Non-African Americans 56 (> 60)
[2020-10-17] MEDS: D5% in 0.45% NACL w KCl 20 MEQ/1,000 ML MLS IVC PRN (00:40)
[2020-10-17 00:58] LABS: Basophils % 0.1 %; Eosinophils % 0.1 %; Hematocrit 37.4 % (37.5-50.1); Hemoglobin 12.6 g/dL (12.9-16.9); Immature Granulocytes % 0.5 % (0-4); Lymphocytes # 1.2 K/mcL (0.6-4.6); Lymphocytes % 8.1 %; Mean Corpuscular HGB Conc 33.7 g/dL (31.6-35.5); Mean Corpuscular Hemoglobin 28.3 pg (28.0-33.3); Monocytes # 1.4 K/mcL (0.0-1.3); Monocytes % 9.6 %; Neutrophils # 12.1 K/mcL (1.6-8.9); Platelet Count 184 K/mcL (140-400); Red Blood Count 4.45 M/mcL (4.19-5.50); Red Cell Distribution Width 15.7 % (11.5-14.5); Segmented Neutrophils % 81.6 %; White Blood Count 14.9 K/mcL (4.3-11.1)
[2020-10-17 01:01] LABS: VBG HCO3 32 mEq/L (21-27); VBG PCO2 50 mmHg (41-51); VBG PH 7.41 pH Units (7.32-7.42); VBG PO2 114 mmHg (25-50)
[2020-10-17 01:19] LABS: BUN/Creatinine Ratio 25 (6-26); Blood Urea Nitrogen 32 mg/dL (6-20); Calcium 7.7 mg/dL (8.6-10.3); Carbon Dioxide 32 mEq/L (23-29); Chloride 97 mEq/L (98-107); Glucose 97 mg/dL (70-105); Osmolality,Calculated 285 (280-300); Potassium 3.3 mEq/L (3.5-5.1); Sodium 134 mEq/L (136-145); eGFR For African Americans > 60 (> 60); eGFR For Non-African Americans > 60 (> 60)
[2020-10-17] MEDS ORDERED: Dextrose Gel 15 GM/37.5 ML TUBE PO PRN ×2 (02:24)
[2020-10-17] MEDS ORDERED: Insulin DETEMIR 100 UNIT/ML X5UNITS SUBQ ONE (02:44)
[2020-10-17] MEDS: *HR* Heparin 5,000 UNIT/ML VIAL SQ SCH ×2 (05:12→13:17)
[2020-10-17] MEDS: Pantoprazole 40 MG VIAL IVP SCH (05:12)
[2020-10-17] MEDS: Ondansetron 4 MG/2 ML VIAL IVP PRN (05:16)
[2020-10-17 06:16] LABS: BUN/Creatinine Ratio 23 (6-26); Blood Urea Nitrogen 26 mg/dL (6-20); Calcium 7.5 mg/dL (8.6-10.3); Carbon Dioxide 28 mEq/L (23-29); Chloride 94 mEq/L (98-107); Glucose 165 mg/dL (70-105); Osmolality,Calculated 280 (280-300); Potassium 3.5 mEq/L (3.5-5.1); Sodium 131 mEq/L (136-145); eGFR For African Americans > 60 (> 60); eGFR For Non-African Americans > 60 (> 60)
[2020-10-17] MEDS ORDERED: Insulin DETEMIR 100 UNIT/ML X5UNITS SUBQ SCH ×2 (09:00→21:00)
[2020-10-17] MEDS: Insulin LISPRO 300 UNITS/3 ML VIAL SUBQ SCH ×4 (09:40→11:50)
[2020-10-17] MEDS: Nicotine 14 MG PATCH.TD24 TD SCH (09:41)
[2020-10-17 10:37] VITALS: BP 134/92
== END 2020-10-17 16:31 | disposition home or self-care (01) ==
LOC: EMEROOARM 12:51 → 2NNU 12:51 → SUATTDRO 16:06 → 2NNU 16:39 → 3BNU 10-17 10:10
PROVIDERS: ADMIT General Practice; ATTEND Family Medicine

== ENCOUNTER 2020-11-10 17:02 | Observation (INO) ==
[2020-11-10] MEDS ORDERED: *HR* LORazepam 2 MG/ML VIAL ONE (17:04)
[2020-11-10] MEDS ORDERED: Haloperidol Lactate 5 MG/ML VIAL ONE (17:04)
[2020-11-10] MEDS ORDERED: 0.9 % Sodium Chloride 1,000 ML IVC ONE (17:10)
[2020-11-10] MEDS ORDERED: Haloperidol Lactate 5 MG/ML VIAL IM ONE (17:12)
[2020-11-10] MEDS ORDERED: *HR* LORazepam 2 MG/ML VIAL IM ONE (17:12)
[2020-11-10] MEDS ORDERED: *HR* Dextrose 50 % in Water (Vial) 50 ML VIAL ONE ×2 (17:18→18:57)
[2020-11-10] MEDS ORDERED: *HR* Dextrose 50 % in Water (Vial) 50 ML VIAL IVP ONE ×2 (17:20→18:54)
[2020-11-10 17:46] LABS: Basophils % 0.5 %; Eosinophils # 0.1 K/mcL (0.0-0.6); Eosinophils % 0.8 %; Hemoglobin 12.6 g/dL (12.9-16.9); Immature Granulocytes % 1.1 % (0-4); Lymphocytes # 1.6 K/mcL (0.6-4.6); Lymphocytes % 18.3 %; Mean Corpuscular HGB Conc 31.5 g/dL (31.6-35.5); Mean Corpuscular Hemoglobin 28.2 pg (28.0-33.3); Mean Corpuscular Volume 89.5 fL (83.0-100.0); Mean Platelet Volume 9.7 fL (9.4-12.4); Monocytes % 11.1 %; Neutrophils # 5.9 K/mcL (1.6-8.9); Platelet Count 281 K/mcL (140-400); Red Blood Count 4.47 M/mcL (4.19-5.50); Segmented Neutrophils % 68.2 %; White Blood Count 8.7 K/mcL (4.3-11.1)
[2020-11-10 17:49] LABS: Bacteria,Urine Few per hpf (None-Few); Bilirubin,Urine Negative (Negative); Blood,Urine Small (Negative); Calcium Oxalate Crystals,Urine Present; Clarity,Urine Clear (Clear); Color,Urine Light-Yellow (Yellow); Glucose,Urine (UA) >=1000 mg/dL (Normal); Ketones,Urine Negative (Negative); Leukocyte Esterase,Urine Negative (Negative); Mucus,Urine Few per lpf (None-Few); Nitrite,Urine Negative (Negative); Protein,Urine 50 mg/dL (Neg-Trace); RBC,Urine 0-3 per hpf (0-3); Specific Gravity,Urine 1.023 (1.010-1.025); Sperm,Urine Present (None Seen); Urobilinogen,Urine Normal (Normal)
[2020-11-10 18:03] LABS: VBG HCO3 21 mEq/L (21-27); VBG PCO2 45 mmHg (41-51); VBG PH 7.28 pH Units (7.32-7.42); VBG PO2 58 mmHg (25-50)
[2020-11-10 18:09] LABS: Alanine Aminotransferase 71 Units/L (7-52); Albumin 4.5 g/dL (3.5-5.7); Albumin/Globulin Ratio 1.7 (1.1-2.2); Alkaline Phosphatase 97 Units/L (34-104); Aspartate Amino Transferase 44 Units/L (13-39); BUN/Creatinine Ratio 16 (6-26); Bilirubin,Direct 0.1 mg/dL (0.0-0.2); Bilirubin,Indirect 0.3 mg/dL (0.0-1.0); Bilirubin,Total 0.4 mg/dL (0.3-1.0); Blood Urea Nitrogen 19 mg/dL (6-20); Calcium 9.8 mg/dL (8.6-10.3); Carbon Dioxide 22 mEq/L (23-29); Chloride 108 mEq/L (98-107); Ethanol < 10 mg/dL (Less than 10); Globulin 2.7 g/dL (2.4-3.5); Glucose 61 mg/dL (70-105); Osmolality,Calculated 302 (280-300); Potassium 3.7 mEq/L (3.5-5.1); Sodium 146 mEq/L (136-145); Total Protein 7.2 g/dL (6.4-8.9); Troponin I < 0.03 ng/mL (< 0.04); eGFR For African Americans > 60 (> 60); eGFR For Non-African Americans > 60 (> 60)
[2020-11-10 18:26] LABS: Amphetamine Screen,Urine Negative ng/mL (Cutoff=1000); Barbiturate Screen,Urine Negative ng/mL (Cutoff=200); Benzodiazepines Screen,Urine Negative ng/mL (Cutoff=200); Cannabinoid Screen,Urine Positive ng/mL (Cutoff = 50); Cocaine Screen,Urine Negative ng/mL (Cutoff= 300); Opiate Screen,Urine Negative ng/mL (Cutoff=300); Phencyclidine Screen,Urine Negative ng/mL (Cutoff=25)
[2020-11-10] MEDS ORDERED: D10% in Water 0 ML ONE (18:57)
[2020-11-10] MEDS ORDERED: Ondansetron 4 MG/2 ML VIAL IVP PRN (19:50)
[2020-11-10] MEDS ORDERED: Naloxone 0.4 MG/ML INJ IVP PRN (19:50)
[2020-11-10] MEDS ORDERED: D5% in Water 1,000 ML IVC PRN (20:12)
[2020-11-10] MEDS ORDERED: *HR* Dextrose 50 % in Water (Vial) 50 ML VIAL IVP PRN (20:12)
[2020-11-10] MEDS ORDERED: Dextrose Gel 15 GM/37.5 ML TUBE PO PRN ×2 (20:12)
[2020-11-10] MEDS: D10% in Water 500 ML IVC SCH (21:53)
[2020-11-11 01:21] LABS: Hematocrit 34.7 % (37.5-50.1); Hemoglobin 11.4 g/dL (12.9-16.9); Mean Corpuscular HGB Conc 32.9 g/dL (31.6-35.5); Mean Corpuscular Hemoglobin 29.2 pg (28.0-33.3); Mean Corpuscular Volume 88.7 fL (83.0-100.0); Mean Platelet Volume 9.8 fL (9.4-12.4); Platelet Count 237 K/mcL (140-400); Red Blood Count 3.91 M/mcL (4.19-5.50); Red Cell Distribution Width 15.9 % (11.5-14.5); White Blood Count 9.6 K/mcL (4.3-11.1)
[2020-11-11 01:40] LABS: BUN/Creatinine Ratio 17 (6-26); Blood Urea Nitrogen 17 mg/dL (6-20); Calcium 8.7 mg/dL (8.6-10.3); Carbon Dioxide 23 mEq/L (23-29); Chloride 109 mEq/L (98-107); Glucose 79 mg/dL (70-105); Osmolality,Calculated 288 (280-300); Potassium 3.6 mEq/L (3.5-5.1); Sodium 139 mEq/L (136-145); eGFR For African Americans > 60 (> 60); eGFR For Non-African Americans > 60 (> 60)
[2020-11-11] MEDS: D10% in Water 500 ML IVC SCH (03:12)
[2020-11-11] MEDS ORDERED: *HR* Enoxaparin 40 MG/0.4 ML SYRINGE SQ SCH (06:00)
[2020-11-11] MEDS ORDERED: D10% in Water 500 ML IVC SCH (08:00)
[2020-11-11] MEDS ORDERED: D5% in Water 1,000 ML IVC PRN (08:23)
[2020-11-11] MEDS ORDERED: Dextrose Gel 15 GM/37.5 ML TUBE PO PRN ×2 (08:23)
[2020-11-11] MEDS ORDERED: *HR* Dextrose 50 % in Water (Vial) 50 ML VIAL IVP PRN (08:23)
[2020-11-11] MEDS ORDERED: Nicotine 14 MG PATCH.TD24 TD SCH (09:00)
[2020-11-11 10:43] VITALS: BP 133/86
[2020-11-11] MEDS ORDERED: Insulin LISPRO 300 UNITS/3 ML VIAL SUBQ SCH ×2 (11:30→21:00)
[2020-11-12 18:07] LABS: Insulin, Free 14 uIU/mL (3-19)
[2020-11-13 07:09] LABS: Insulin, Total 17 uIU/mL (3-19)
== END 2020-11-11 14:54 | disposition home or self-care (01) ==
LOC: EMEROOARM 17:02 → 2NNU 17:02 → SUATTDRO 19:39 → 2NNU 20:35
PROVIDERS: ADMIT Internal Medicine; ATTEND Internal Medicine

== ENCOUNTER 2020-12-05 16:42 | Observation (INO) ==
[2020-12-05] MEDS ORDERED: Insulin Human Regular 100 UNIT in 0.9 % Sodium Chloride 100 ML IVC SCH ×3 (17:00→21:00)
[2020-12-05] MEDS: 0.9 % Sodium Chloride 1,000 ML IVC SCH ×2 (17:10→17:11)
[2020-12-05 17:21] LABS: VBG HCO3 31 mEq/L (21-27); VBG PCO2 48 mmHg (41-51); VBG PH 7.42 pH Units (7.32-7.42); VBG PO2 40 mmHg (25-50)
[2020-12-05 17:54] LABS: Troponin I < 0.03 ng/mL (< 0.04)
[2020-12-05 18:02] LABS: Basophils % 0.3 %; Hematocrit 41.2 % (37.5-50.1); Hemoglobin 14.6 g/dL (12.9-16.9); Immature Granulocytes % 0.3 % (0-4); Lymphocytes # 1.1 K/mcL (0.6-4.6); Lymphocytes % 9.3 %; Mean Corpuscular HGB Conc 35.4 g/dL (31.6-35.5); Mean Corpuscular Hemoglobin 29.2 pg (28.0-33.3); Mean Corpuscular Volume 82.4 fL (83.0-100.0); Mean Platelet Volume 10.5 fL (9.4-12.4); Monocytes % 8.2 %; Neutrophils # 9.9 K/mcL (1.6-8.9); Platelet Count 306 K/mcL (140-400); Red Cell Distribution Width 13.2 % (11.5-14.5); Segmented Neutrophils % 81.9 %; White Blood Count 12.1 K/mcL (4.3-11.1)
[2020-12-05 18:03] LABS: Alanine Aminotransferase 35 Units/L (7-52); Albumin 4.9 g/dL (3.5-5.7); Albumin/Globulin Ratio 1.4 (1.1-2.2); Alkaline Phosphatase 200 Units/L (34-104); Aspartate Amino Transferase 15 Units/L (13-39); BUN/Creatinine Ratio 20 (6-26); Bilirubin,Direct 0.1 mg/dL (0.0-0.2); Bilirubin,Indirect 0.4 mg/dL (0.0-1.0); Bilirubin,Total 0.5 mg/dL (0.3-1.0); Blood Urea Nitrogen 46 mg/dL (6-20); Carbon Dioxide 32 mEq/L (23-29); Chloride 82 mEq/L (98-107); Globulin 3.5 g/dL (2.4-3.5); Glucose 902 mg/dL (70-105); Lipase 26 Units/L (11-82); Magnesium 2.8 mg/dL (1.6-2.6); Osmolality,Calculated 329 (280-300); Phosphorous 5.7 mg/dL (2.7-4.5); Potassium 3.2 mEq/L (3.5-5.1); Sodium 131 mEq/L (136-145); Total Protein 8.4 g/dL (6.4-8.9); eGFR For African Americans 39 (> 60); eGFR For Non-African Americans 32 (> 60)
[2020-12-05] MEDS ORDERED: 0.9 % Sodium Chloride 1,000 ML IVC ONE (18:07)
[2020-12-05 18:09] LABS: Bilirubin,Urine Negative (Negative); Blood,Urine Trace (Negative); Clarity,Urine Clear (Clear); Color,Urine Colorless (Yellow); Glucose,Urine (UA) >=1000 mg/dL (Normal); Ketones,Urine Trace mg/dL (Negative); Leukocyte Esterase,Urine Negative (Negative); Nitrite,Urine Negative (Negative); PH,Urine 5.5 pH Units (5.0-8.0); Protein,Urine Trace mg/dL (Neg-Trace); RBC,Urine 0-3 per hpf (0-3); Specific Gravity,Urine 1.028 (1.010-1.025); Urobilinogen,Urine Normal (Normal)
[2020-12-05 18:10] LABS: Amphetamine Screen,Urine Negative ng/mL (Cutoff=1000); Barbiturate Screen,Urine Negative ng/mL (Cutoff=200); Benzodiazepines Screen,Urine Negative ng/mL (Cutoff=200); Cannabinoid Screen,Urine Positive ng/mL (Cutoff = 50); Cocaine Screen,Urine Negative ng/mL (Cutoff= 300); Opiate Screen,Urine Negative ng/mL (Cutoff=300); Phencyclidine Screen,Urine Negative ng/mL (Cutoff=25)
[2020-12-05] MEDS ORDERED: Metoclopramide 10 MG/2 ML VIAL IVP ONE (18:12)
[2020-12-05] MEDS ORDERED: Potassium Chloride 40 MEQ, Lidocaine 1% 2 ML in 0.9 % Sodium Chloride 500 ML IVPB ONE (18:27)
[2020-12-05] MEDS ORDERED: Naloxone 0.4 MG/ML INJ IVP PRN (20:40)
[2020-12-05] MEDS ORDERED: D5% in 0.45% NACL w KCl 20 MEQ/1,000 ML MLS IVC PRN (20:57)
[2020-12-05] MEDS ORDERED: *HR* Dextrose 50 % in Water (Vial) 50 ML VIAL IVP PRN (20:57)
[2020-12-05] MEDS ORDERED: Insulin Regular, Human 100 UNIT/ML IV PRN (20:57)
[2020-12-05] MEDS ORDERED: Potassium Chloride Elixir 20 MEQ/15 ML UDC PO ONE (21:03)
[2020-12-05] MEDS ORDERED: Metoclopramide 10 MG/2 ML VIAL IVP PRN (21:14)
[2020-12-06] MEDS: 0.45 % Sodium Chloride w/KCl 20 MEQ/1,000 ML MLS IVC SCH ×2 (00:24→05:54)
[2020-12-06 00:55] LABS: Calcium 8.7 mg/dL (8.6-10.3); Potassium 4.3 mEq/L (3.5-5.1)
[2020-12-06 04:51] LABS: Basophils % 0.3 %; Hematocrit 34.2 % (37.5-50.1); Immature Granulocytes % 0.4 % (0-4); Lymphocytes # 1.7 K/mcL (0.6-4.6); Lymphocytes % 10.6 %; Mean Corpuscular HGB Conc 35.1 g/dL (31.6-35.5); Mean Corpuscular Hemoglobin 28.8 pg (28.0-33.3); Mean Corpuscular Volume 82.2 fL (83.0-100.0); Mean Platelet Volume 10.2 fL (9.4-12.4); Monocytes # 2.2 K/mcL (0.0-1.3); Monocytes % 13.8 %; Neutrophils # 11.7 K/mcL (1.6-8.9); Platelet Count 253 K/mcL (140-400); Red Blood Count 4.16 M/mcL (4.19-5.50); Red Cell Distribution Width 13.3 % (11.5-14.5); Segmented Neutrophils % 74.9 %; White Blood Count 15.6 K/mcL (4.3-11.1)
[2020-12-06 04:58] LABS: VBG HCO3 29 mEq/L (21-27); VBG PCO2 47 mmHg (41-51); VBG PH 7.39 pH Units (7.32-7.42); VBG PO2 151 mmHg (25-50)
[2020-12-06 05:10] LABS: Calcium 8.6 mg/dL (8.6-10.3); Magnesium 2.6 mg/dL (1.6-2.6); Phosphorous 2.8 mg/dL (2.7-4.5); Potassium 3.5 mEq/L (3.5-5.1)
[2020-12-06] MEDS ORDERED: Insulin DETEMIR 100 UNIT/ML X5UNITS SUBQ SCH (07:00)
[2020-12-06] MEDS: Insulin LISPRO 300 UNITS/3 ML VIAL SUBQ SCH ×2 (07:43→11:54)
[2020-12-06 11:45] VITALS: BP 137/90
[2020-12-06 12:31] LABS: Estimated Average Glucose 217 mg/dl; Hemoglobin A1C 9.2 %
[2020-12-06] MEDS ORDERED: Insulin LISPRO 300 UNITS/3 ML VIAL SUBQ SCH (21:00)
== END 2020-12-06 14:16 | disposition home or self-care (01) ==
LOC: EMEROOARM 16:42 → 2NNU 16:42 → SUATTDRO 19:19 → 2NNU 20:02
PROVIDERS: ADMIT Internal Medicine; ATTEND Internal Medicine

== ENCOUNTER 2021-03-23 17:36 | Inpatient (IN) ==
[2021-03-23 18:05] LABS: Basophils # 0.1 K/mcL (0.0-0.2); Basophils % 0.3 %; Eosinophils % 0.1 %; Hematocrit 39.8 % (37.5-50.1); Hemoglobin 12.8 g/dL (12.9-16.9); Immature Granulocytes % 0.5 % (0-4); Lymphocytes # 1.3 K/mcL (0.6-4.6); Lymphocytes % 5.6 %; Mean Corpuscular HGB Conc 32.2 g/dL (31.6-35.5); Mean Corpuscular Hemoglobin 26.2 pg (28.0-33.3); Mean Platelet Volume 10.4 fL (9.4-12.4); Monocytes # 1.4 K/mcL (0.0-1.3); Monocytes % 5.8 %; Neutrophils # 20.3 K/mcL (1.6-8.9); Platelet Count 313 K/mcL (140-400); Red Blood Count 4.89 M/mcL (4.19-5.50); Red Cell Distribution Width 14.6 % (11.5-14.5); Segmented Neutrophils % 87.7 %; White Blood Count 23.2 K/mcL (4.3-11.1)
[2021-03-23 18:07] LABS: VBG HCO3 32 mEq/L (21-27); VBG PCO2 49 mmHg (41-51); VBG PH 7.42 pH Units (7.32-7.42); VBG PO2 46 mmHg (25-50)
[2021-03-23 18:26] LABS: Calcium 10.6 mg/dL (8.6-10.3); Potassium 3.5 mEq/L (3.5-5.1)
[2021-03-23 18:32] LABS: Mean Corpuscular Volume 81.4 fL (83.0-100.0)
[2021-03-23] MEDS ORDERED: 0.9 % Sodium Chloride 1,000 ML IVC ONE (19:10)
[2021-03-23] MEDS ORDERED: Isovue-370 500 ML BOTTLE IVP ONE (19:11)
[2021-03-23] MEDS ORDERED: Ondansetron 4 MG/2 ML VIAL IVP ONE (19:11)
[2021-03-23] MEDS ORDERED: Insulin Regular, Human 100 UNIT/ML SUBQ ONE (19:12)
[2021-03-23 22:33] LABS: Bilirubin,Urine Negative (Negative); Blood,Urine Small (Negative); Budding Yeast,Urine Few per hpf (None Seen); Clarity,Urine Clear (Clear); Color,Urine Light-Yellow (Yellow); Glucose,Urine (UA) >=1000 mg/dL (Normal); Ketones,Urine Negative (Negative); Leukocyte Esterase,Urine Small (Negative); Mucus,Urine Few per lpf (None-Few); Nitrite,Urine Negative (Negative); PH,Urine 6.5 pH Units (5.0-8.0); Protein,Urine 100 mg/dL (Neg-Trace); Specific Gravity,Urine > 1.030 (1.010-1.025); Squamous Epithelial Cell,Urine Few per hpf (None-Few); Urobilinogen,Urine Normal (Normal); WBC,Urine 30-50 per hpf (0-3)
[2021-03-23] MEDS ORDERED: MetroNIDAZOLE 500 MG/100 ML 500 MG/100 ML BAG IVPB ONE (22:33)
[2021-03-23] MEDS ORDERED: Acetaminophen 325 MG TABLET PO PRN (23:03)
[2021-03-23] MEDS ORDERED: Naloxone 0.4 MG/ML INJ IVP PRN ×2 (23:03→23:42)
[2021-03-24] MEDS ORDERED: MetroNIDAZOLE 500 MG/100 ML 500 MG/100 ML BAG IVPB SCH
[2021-03-24] MEDS ORDERED: *HR* Dextrose 50 % in Water (Vial) 50 ML VIAL IVP PRN ×2 (00:23→01:27)
[2021-03-24] MEDS ORDERED: D5% in Water 1,000 ML IVC PRN (01:27)
[2021-03-24] MEDS ORDERED: Dextrose Gel 15 GM/37.5 ML TUBE PO PRN ×2 (01:27)
[2021-03-24] MEDS: Ondansetron 4 MG/2 ML VIAL IVP PRN ×3 (01:37→20:58)
[2021-03-24] MEDS: 0.9 % Sodium Chloride 1,000 ML IVC SCH ×3 (01:38→08:28)
[2021-03-24 02:08] LABS: Basophils % 0.2 %; Hematocrit 40.2 % (37.5-50.1); Hemoglobin 12.9 g/dL (12.9-16.9); Immature Granulocytes % 0.4 % (0-4); Lymphocytes # 1.2 K/mcL (0.6-4.6); Lymphocytes % 6.3 %; Mean Corpuscular HGB Conc 32.1 g/dL (31.6-35.5); Mean Corpuscular Hemoglobin 25.9 pg (28.0-33.3); Mean Corpuscular Volume 80.7 fL (83.0-100.0); Mean Platelet Volume 10.4 fL (9.4-12.4); Monocytes # 0.6 K/mcL (0.0-1.3); Monocytes % 3.1 %; Neutrophils # 17.8 K/mcL (1.6-8.9); Platelet Count 305 K/mcL (140-400); Red Blood Count 4.98 M/mcL (4.19-5.50); Red Cell Distribution Width 14.7 % (11.5-14.5); White Blood Count 19.8 K/mcL (4.3-11.1)
[2021-03-24 02:22] LABS: Estimated Average Glucose 229 mg/dl; Hemoglobin A1C 9.6 %
[2021-03-24 02:27] LABS: BUN/Creatinine Ratio 15 (6-26); Blood Urea Nitrogen 23 mg/dL (6-20); Calcium 10.2 mg/dL (8.6-10.3); Carbon Dioxide 30 mEq/L (23-29); Chloride 94 mEq/L (98-107); Glucose 226 mg/dL (70-105); Magnesium 1.9 mg/dL (1.6-2.6); Osmolality,Calculated 293 (280-300); Potassium 3.8 mEq/L (3.5-5.1); Sodium 136 mEq/L (136-145); eGFR For African Americans > 60 (> 60); eGFR For Non-African Americans 51 (> 60)
[2021-03-24 03:07] LABS: Amphetamine Screen,Urine Negative ng/mL (Cutoff=1000); Barbiturate Screen,Urine Negative ng/mL (Cutoff=200); Benzodiazepines Screen,Urine Negative ng/mL (Cutoff=200); Cannabinoid Screen,Urine Positive ng/mL (Cutoff = 50); Cocaine Screen,Urine Negative ng/mL (Cutoff= 300); Opiate Screen,Urine Negative ng/mL (Cutoff=300); Phencyclidine Screen,Urine Negative ng/mL (Cutoff=25)
[2021-03-24] MEDS ORDERED: *HR* Enoxaparin 40 MG/0.4 ML SYRINGE SQ SCH (06:00)
[2021-03-24] MEDS: Insulin LISPRO 300 UNITS/3 ML VIAL SUBQ SCH ×5 (06:02→21:03)
[2021-03-24] MEDS: *HR* Promethazine 25 MG/ML VIAL IM PRN (07:10)
[2021-03-24] MEDS: MetroNIDAZOLE 500 MG/100 ML 500 MG/100 ML BAG IVPB SCH ×2 (08:30→15:45)
[2021-03-24 16:11] LABS: Adenovirus F 40/41 PCR Not detected (Not detect); Astrovirus PCR Not detected (Not detect); C.difficile Toxin A/B Gene PCR DETECTED (Not detect); Campylobacter by PCR Not detected (Not detect); Cryptosporidium by PCR Not detected (Not detect); Cyclospora cayetanensis PCR Not detected (Not detect); E. coli O157 by PCR Not detected (Not detect); Entamoeba histolytica PCR Not detected (Not detect); Enteroaggregative E.coli(EAEC) Not detected (Not detect); Enteropathogenic E.coli(EPEC) Not detected (Not detect); Enterotoxigenic E.coli (ETEC) Not detected (Not detect); Giardia lamblia PCR Not detected (Not detect); Norovirus GI/GII PCR Not detected (Not detect); Plesiomonas shigelloides PCR Not detected (Not detect); Rotavirus A PCR Not detected (Not detect); Salmonella PCR Not detected (Not detect); Sapovirus PCR Not detected (Not detect); Shig/EnteroinvasiveE coli EIEC Not detected (Not detect); Shigalike tox-prod E coli STEC Not detected (Not detect); Vibrio PCR Not detected (Not detect); Vibrio cholerae PCR Not detected (Not detect); Yersinia enterocolitica PCR Not detected (Not detect)
[2021-03-24] MEDS: Vancomycin Oral Soln 125 MG/2.5 ML UDC PO SCH ×2 (18:17→21:03)
[2021-03-25] MEDS: MetroNIDAZOLE 500 MG/100 ML 500 MG/100 ML BAG IVPB SCH ×2 (00:37→08:15)
[2021-03-25] MEDS: 0.9 % Sodium Chloride 1,000 ML IVC SCH ×2 (00:37→17:44)
[2021-03-25] MEDS: *HR* Promethazine 25 MG/ML VIAL IM PRN ×3 (00:38→19:43)
[2021-03-25 01:57] LABS: Basophils % 0.1 %; Hematocrit 33.4 % (37.5-50.1); Immature Granulocytes % 0.7 % (0-4); Lymphocytes # 1.3 K/mcL (0.6-4.6); Lymphocytes % 6.1 %; Mean Corpuscular HGB Conc 32.3 g/dL (31.6-35.5); Mean Corpuscular Hemoglobin 26.5 pg (28.0-33.3); Mean Corpuscular Volume 82.1 fL (83.0-100.0); Mean Platelet Volume 10.9 fL (9.4-12.4); Monocytes # 1.4 K/mcL (0.0-1.3); Monocytes % 6.6 %; Neutrophils # 18.3 K/mcL (1.6-8.9); Platelet Count 259 K/mcL (140-400); Red Blood Count 4.07 M/mcL (4.19-5.50); Red Cell Distribution Width 15.2 % (11.5-14.5); Segmented Neutrophils % 86.5 %; White Blood Count 21.1 K/mcL (4.3-11.1)
[2021-03-25 01:59] LABS: Hemoglobin 10.8 g/dL (12.9-16.9)
[2021-03-25 02:16] LABS: BUN/Creatinine Ratio 15 (6-26); Blood Urea Nitrogen 21 mg/dL (6-20); Calcium 8.6 mg/dL (8.6-10.3); Carbon Dioxide 30 mEq/L (23-29); Chloride 93 mEq/L (98-107); Glucose 250 mg/dL (70-105); Osmolality,Calculated 291 (280-300); Potassium 3.2 mEq/L (3.5-5.1); Sodium 135 mEq/L (136-145); eGFR For African Americans > 60 (> 60); eGFR For Non-African Americans 58 (> 60)
[2021-03-25] MEDS ORDERED: Insulin LISPRO 300 UNITS/3 ML VIAL SUBQ ONE (04:18)
[2021-03-25] MEDS: Vancomycin Oral Soln 125 MG/2.5 ML UDC PO SCH ×4 (08:17→19:46)
[2021-03-25] MEDS: Insulin LISPRO 300 UNITS/3 ML VIAL SUBQ SCH ×4 (08:18→20:15)
[2021-03-25] MEDS ORDERED: Potassium Chloride 40 MEQ, Lidocaine 1% 2 ML in 0.9 % Sodium Chloride 500 ML IVPB ONE (08:20)
[2021-03-25] MEDS: Ondansetron 4 MG/2 ML VIAL IVP PRN (14:31)
[2021-03-25] MEDS ORDERED: Insulin DETEMIR 100 UNIT/ML X5UNITS SUBQ SCH (21:00)
[2021-03-26] MEDS: Ondansetron 4 MG/2 ML VIAL IVP PRN (03:06)
[2021-03-26] MEDS: 0.9 % Sodium Chloride 1,000 ML IVC SCH ×2 (04:28)
[2021-03-26 04:49] LABS: Basophils % 0.1 %; Hemoglobin 10.8 g/dL (12.9-16.9); Immature Granulocytes % 0.4 % (0-4); Lymphocytes # 1.4 K/mcL (0.6-4.6); Lymphocytes % 9.4 %; Mean Corpuscular HGB Conc 31.8 g/dL (31.6-35.5); Mean Corpuscular Hemoglobin 25.7 pg (28.0-33.3); Mean Corpuscular Volume 80.8 fL (83.0-100.0); Mean Platelet Volume 10.5 fL (9.4-12.4); Monocytes # 1.2 K/mcL (0.0-1.3); Monocytes % 8.2 %; Neutrophils # 12.4 K/mcL (1.6-8.9); Platelet Count 226 K/mcL (140-400); Red Blood Count 4.21 M/mcL (4.19-5.50); Segmented Neutrophils % 81.9 %; White Blood Count 15.2 K/mcL (4.3-11.1)
[2021-03-26 05:08] LABS: BUN/Creatinine Ratio 16 (6-26); Blood Urea Nitrogen 18 mg/dL (6-20); Calcium 8.6 mg/dL (8.6-10.3); Carbon Dioxide 35 mEq/L (23-29); Chloride 93 mEq/L (98-107); Glucose 252 mg/dL (70-105); Osmolality,Calculated 290 (280-300); Potassium 3.1 mEq/L (3.5-5.1); Sodium 135 mEq/L (136-145); eGFR For African Americans > 60 (> 60); eGFR For Non-African Americans > 60 (> 60)
[2021-03-26 06:52] VITALS: BP 153/99
[2021-03-26] MEDS: Vancomycin Oral Soln 125 MG/2.5 ML UDC PO SCH ×2 (08:07→12:03)
[2021-03-26] MEDS: Insulin LISPRO 300 UNITS/3 ML VIAL SUBQ SCH ×2 (08:08→12:03)
[2021-03-26] MEDS ORDERED: Insulin DETEMIR 100 UNIT/ML X5UNITS SUBQ SCH (09:00)
[2021-03-26] MEDS ORDERED: Insulin LISPRO 300 UNITS/3 ML VIAL SUBQ SCH (12:00)
[2021-03-26] MEDS ORDERED: *HR* Heparin 5,000 UNIT/ML VIAL SQ SCH (18:00)
== END 2021-03-26 16:13 | disposition home or self-care (01) | DRG 720 ==
LOC: EMEROOARM 17:36 → 3ANU 17:36 → SUATTDRO 23:27 → 3ANU 03-24 01:14
PROVIDERS: ADMIT Student in an Organized Health Care Education/Training Program; ATTEND Family Medicine

== ENCOUNTER 2021-07-11 17:01 | Observation (INO) ==
[2021-07-12] MEDS ORDERED: Naloxone 0.4 MG/ML INJ IVP PRN (01:58)
[2021-07-12] MEDS ORDERED: Ondansetron 4 MG/2 ML VIAL IVP PRN (01:58)
[2021-07-12] MEDS ORDERED: *HR* Dextrose 50 % in Water (Syg) 50 ML SYRINGE IVP PRN (02:03)
[2021-07-12] MEDS ORDERED: Insulin LISPRO 300 UNITS/3 ML VIAL SUBQ PRN (02:03)
[2021-07-12] MEDS ORDERED: D5% in 0.45% NACL 1,000 ML IVC PRN (02:03)
[2021-07-12] MEDS: 0.9 % Sodium Chloride w KCl 20 MEQ/1,000 ML MLS IVC SCH ×2 (03:00→04:37)
[2021-07-12] MEDS: Pantoprazole 40 MG in 0.9 % Sodium Chloride Mini Bag 100 ML IVC SCH ×5 (03:01→23:39)
[2021-07-12] MEDS: D5% in 0.45% NACL w KCl 20 MEQ/1,000 ML MLS IVC PRN ×3 (04:16→12:24)
[2021-07-12 04:26] LABS: Basophils % 0.1 %; Hemoglobin 8.8 g/dL (12.9-16.9); Mean Platelet Volume 10.7 fL (9.4-12.4); Red Cell Distribution Width 14.6 % (11.5-14.5)
[2021-07-12 04:37] LABS: Hematocrit 25.1 % (37.5-50.1); Immature Granulocytes % 0.5 % (0-4); Lymphocytes # 1.2 K/mcL (0.6-4.6); Lymphocytes % 5.8 %; Mean Corpuscular HGB Conc 35.1 g/dL (31.6-35.5); Mean Corpuscular Volume 79.9 fL (83.0-100.0); Monocytes # 1.6 K/mcL (0.0-1.3); Monocytes % 7.8 %; Neutrophils # 17.2 K/mcL (1.6-8.9); Platelet Count 292 K/mcL (140-400); Red Blood Count 3.14 M/mcL (4.19-5.50); Segmented Neutrophils % 85.8 %; White Blood Count 20.1 K/mcL (4.3-11.1)
[2021-07-12] MEDS: 0.9 % Sodium Chloride 1,000 ML IVC SCH (04:37)
[2021-07-12 05:48] LABS: Calcium 7.6 mg/dL (8.6-10.3); Chol/HDL Ratio 3.6 (0-4.9); Magnesium 2.2 mg/dL (1.6-2.6); Potassium 3.7 mEq/L (3.5-5.1)
[2021-07-12] MEDS ORDERED: Piperacillin/Tazobactam 3.375 GM in 0.9 % Sodium Chloride Mini Bag 100 ML IVPB SCH (08:00)
[2021-07-12 09:31] LABS: VBG HCO3 30 mEq/L (21-27); VBG PCO2 44 mmHg (41-51); VBG PH 7.44 pH Units (7.32-7.42); VBG PO2 190 mmHg (25-50)
[2021-07-12 09:38] LABS: Calcium 7.6 mg/dL (8.6-10.3); Potassium 3.6 mEq/L (3.5-5.1)
[2021-07-12 16:04] LABS: VBG HCO3 31 mEq/L (21-27); VBG PCO2 46 mmHg (41-51); VBG PH 7.43 pH Units (7.32-7.42); VBG PO2 190 mmHg (25-50)
[2021-07-12 16:20] LABS: Calcium 7.6 mg/dL (8.6-10.3); Potassium 3.6 mEq/L (3.5-5.1)
[2021-07-12] MEDS: Insulin LISPRO 300 UNITS/3 ML VIAL SUBQ SCH ×2 (18:18→18:19)
[2021-07-12] MEDS ORDERED: Insulin DETEMIR 100 UNIT/ML X5UNITS SUBQ ONE (18:30)
[2021-07-12] MEDS: Piperacillin/Tazobactam 3.375 GM in 0.9 % Sodium Chloride Mini Bag 100 ML IVPB SCH (19:35)
[2021-07-12] MEDS ORDERED: Insulin DETEMIR 100 UNIT/ML X5UNITS SUBQ SCH ×2 (21:00)
[2021-07-13] MEDS: Pantoprazole 40 MG in 0.9 % Sodium Chloride Mini Bag 100 ML IVC SCH ×4 (03:47→18:21)
[2021-07-13] MEDS: Piperacillin/Tazobactam 3.375 GM in 0.9 % Sodium Chloride Mini Bag 100 ML IVPB SCH ×3 (03:48→21:22)
[2021-07-13] MEDS: Insulin LISPRO 300 UNITS/3 ML VIAL SUBQ SCH ×6 (08:52→16:55)
[2021-07-13] MEDS: Acetaminophen 325 MG TABLET PO PRN (18:23)
[2021-07-14] MEDS: Pantoprazole 40 MG in 0.9 % Sodium Chloride Mini Bag 100 ML IVC SCH ×3 (01:07→10:53)
[2021-07-14] MEDS: Acetaminophen 325 MG TABLET PO PRN (01:08)
[2021-07-14] MEDS: Piperacillin/Tazobactam 3.375 GM in 0.9 % Sodium Chloride Mini Bag 100 ML IVPB SCH (04:35)
[2021-07-14 06:30] LABS: Hematocrit 27.3 % (37.5-50.1); Hemoglobin 8.9 g/dL (12.9-16.9); Lymphocytes % 22.4 %; Mean Corpuscular HGB Conc 32.6 g/dL (31.6-35.5); Mean Corpuscular Hemoglobin 27.6 pg (28.0-33.3); Mean Corpuscular Volume 84.8 fL (83.0-100.0); Mean Platelet Volume 10.5 fL (9.4-12.4); Monocytes % 7.8 %; Platelet Count 187 K/mcL (140-400); Red Blood Count 3.22 M/mcL (4.19-5.50); Red Cell Distribution Width 15.3 % (11.5-14.5); Segmented Neutrophils % 67.2 %
[2021-07-14 06:31] LABS: Basophils % 0.2 %; Eosinophils # 0.1 K/mcL (0.0-0.6); Eosinophils % 1.4 %; Lymphocytes # 1.3 K/mcL (0.6-4.6); Monocytes # 0.5 K/mcL (0.0-1.3); Neutrophils # 3.9 K/mcL (1.6-8.9); White Blood Count 5.8 K/mcL (4.3-11.1)
[2021-07-14 06:51] LABS: BUN/Creatinine Ratio 14 (6-26); Blood Urea Nitrogen 16 mg/dL (6-20); Calcium 7.9 mg/dL (8.6-10.3); Carbon Dioxide 27 mEq/L (23-29); Chloride 95 mEq/L (98-107); Glucose 405 mg/dL (70-105); Osmolality,Calculated 292 (280-300); Potassium 3.4 mEq/L (3.5-5.1); Sodium 132 mEq/L (136-145); eGFR For African Americans > 60 (> 60); eGFR For Non-African Americans > 60 (> 60)
[2021-07-14] MEDS: Insulin LISPRO 300 UNITS/3 ML VIAL SUBQ SCH ×4 (08:57→13:35)
[2021-07-14] MEDS ORDERED: Insulin DETEMIR 100 UNIT/ML X5UNITS SUBQ ONE (09:37)
[2021-07-14 11:40] VITALS: BP 133/84; PULSE 92; TEMP 97.9; O2SAT 97
[2021-07-14 14:56] LABS: BUN/Creatinine Ratio 13 (6-26); Blood Urea Nitrogen 15 mg/dL (6-20); Calcium 8.1 mg/dL (8.6-10.3); Carbon Dioxide 33 mEq/L (23-29); Chloride 97 mEq/L (98-107); Glucose 322 mg/dL (70-105); Osmolality,Calculated 289 (280-300); Potassium 3.4 mEq/L (3.5-5.1); Sodium 133 mEq/L (136-145); eGFR For African Americans > 60 (> 60); eGFR For Non-African Americans > 60 (> 60)
== END 2021-07-14 14:45 | disposition home or self-care (01) ==
LOC: 3NENU → SUATTDRO 07-12 01:25
PROVIDERS: ADMIT General Practice; ATTEND Internal Medicine